=== PATIENT | female | born 1940 | race Caucasian/White ===

== ENCOUNTER → 2017-12-13 | Outpatient (CLI) | payer MEDICARE, BC ==
--- NOTE | 2017-12-17 10:51 | MM ---
Reason for exam: screening (asymptomatic). Last mammogram was performed 4 years and 5 months ago. History: Patient is postmenopausal. Benign left mammotome panel of the left breast, April 07, 2009. Took estrogen for 13 years. Physical Findings: A clinical breast exam by your physician is recommended on an annual basis and results should be correlated with mammographic findings. MG 3D Screening Mammo W/Cad Bilateral CC and MLO view(s) were taken. Prior study comparison: June 30, 2013, bilateral digital screening mammo w/CAD. March 18, 2012, bilateral digital screening mammo w/CAD. The breast tissue is heterogeneously dense. This may lower the sensitivity of mammography. There is a new 3mm mass lower inner quadrant on the left breast at middle depth. No suspicious abnormality on the right breast. ASSESSMENT: Incomplete: need additional imaging evaluation, BI-RAD 0 RECOMMENDATION: Special view mammogram of the left breast. If lesion persists on supplemental views, image directed ultrasound is recommended. [facility] will attempt to contact patient to return for supplemental views and ultrasound if indicated.
== END | disposition home or self-care (01) ==
LOC: RADMAMWWP 13:57
PROVIDERS: ATTEND Family Medicine
DX: Z12.31 Encounter for screening mammogram for malignant neoplasm of breast (principal)
CPT/HCPCS: 77063; 77067

== ENCOUNTER → 2017-12-31 | Outpatient (CLI) | payer MEDICARE, BC ==
--- NOTE | 2018-01-01 07:33 | MM ---
Reason for exam: additional evaluation requested from abnormal screening. Last mammogram was performed 1 month ago. History: Patient is postmenopausal. Benign left mammotome panel of the left breast, April 07, 2009. Took estrogen for 13 years. Physical Findings: Nurse did not find any significant physical abnormalities on exam. MG 3D Work Up W/Cad LT Spot compression CC, spot compression MLO, and ML view(s) were taken of the left breast. Prior study comparison: December 13, 2017, bilateral MG 3d screening mammo w/cad. June 30, 2013, bilateral digital screening mammo w/CAD. The breast tissue is heterogeneously dense. This may lower the sensitivity of mammography. There is no discrete abnormality including area of concern. No significant new findings when compared with previous films. These results were verbally communicated with the patient and result sheet given to the patient on 12/31/17. ASSESSMENT: Negative, BI-RAD 1 RECOMMENDATION: Return to routine screening mammogram schedule for both breasts.
== END | disposition home or self-care (01) ==
LOC: RADMAMWWP 14:57
PROVIDERS: ATTEND Family Medicine
DX: R92.8 Other abnormal and inconclusive findings on diagnostic imaging of breast (principal)
CPT/HCPCS: 77065; G0279; 77061

== ENCOUNTER → 2019-03-03 | Outpatient (CLI) | payer MEDICARE, BC ==
--- NOTE | 2019-03-04 14:58 | MM ---
Reason for exam: screening (asymptomatic). Last mammogram was performed 1 year and 2 months ago. History: Patient is postmenopausal. Benign left mammotome panel of the left breast, April 07, 2009. Took estrogen for 13 years. MG 3D Screening Mammo W/Cad Bilateral CC and MLO view(s) were taken. Prior study comparison: December 31, 2017, left breast MG 3d work up w/cad LT. December 13, 2017, bilateral MG 3d screening mammo w/cad. The breast tissue is heterogeneously dense. This may lower the sensitivity of mammography. There are benign-appearing bilateral breast calcifications. No suspicious abnormality. No significant new finding when compared with prior studies. ASSESSMENT: Benign, BI-RAD 2 RECOMMENDATION: Routine screening mammogram of both breasts in 1 year.
== END | disposition home or self-care (01) ==
LOC: RADMAMWWP 12:58
PROVIDERS: ATTEND Family Medicine
DX: Z12.31 Encounter for screening mammogram for malignant neoplasm of breast (principal)
CPT/HCPCS: 77063; 77067

== ENCOUNTER 2019-09-01 13:54 | Emergency (ER) | payer OTHER, MEDICARE, BC ==
[2019-09-01 14:05] VITALS: RESP 18
[2019-09-01] MEDS ORDERED: PROPARACAINE 0.5% OPHTH DROPS 15 ML BTL BOTH EYES SCH (15:15)
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
--- NOTE | 2019-09-01 16:13 | CT ---
EXAMINATION TYPE: CT orbits wo con DATE OF EXAM: 09/01/2019 COMPARISON: None HISTORY: Pain Unenhanced CT of the facial bones and orbits was performed in the axial and coronal planes. Bone and soft tissue window settings are submitted. No significant soft tissue swelling is appreciated. I do not see evidence for displaced facial bone fracture or depressed facial bone fracture. The globes are intact. The orbits are symmetric. No evidence for foreign body. Paranasal sinuses are well-aerated. IMPRESSION: 1. No evidence for depressed or displaced facial bone fracture.
[2019-09-01 17:38] VITALS: BP 190/75; PULSE 72; TEMP 97.7
== END 2019-09-01 17:38 | disposition home or self-care (01) ==
LOC: EC 13:54
DX: R51 Headache (principal); H53.8 Other visual disturbances; M54.2 Cervicalgia; I25.10 Atherosclerotic heart disease of native coronary artery without angina pectoris; I10 Essential (primary) hypertension; F32.9 Major depressive disorder, single episode, unspecified; Z86.718 Personal history of other venous thrombosis and embolism; Z95.1 Presence of aortocoronary bypass graft; Z96.652 Presence of left artificial knee joint; Z79.01 Long term (current) use of anticoagulants; Z79.899 Other long term (current) drug therapy; V89.2XXA Person injured in unspecified motor-vehicle accident, traffic, initial encounter; Y92.410 Unspecified street and highway as the place of occurrence of the external cause
CPT/HCPCS: 70450; 70480; 72125; 99284

== ENCOUNTER 2020-05-06 13:48 | Emergency (ER) | payer BC, MEDICARE, OTHER ==
[2020-05-06 14:05] VITALS: TEMP 97.9
[2020-05-06] MEDS ORDERED: diazePAM 2 MG TAB PO STA (14:23)
--- NOTE | 2020-05-06 15:03 | CT ---
EXAMINATION TYPE: CT brain priscilla bourne con DATE OF EXAM: 05/06/2020 COMPARISON: 09/01/2019 HISTORY: headache, neck pain, neck weakness CT DLP: 1315.[address] of the brain was performed. The ventricles, basal cisterns and sulci overlying the cerebral convexities demonstrate mild enlargem ent. There is no evidence for intracranial hemorrhage or sulcal effacement. There is decreased attenuatio n about the periventricular white matter and deep white matter of both cerebral hemispheres, compatib le with chronic small vessel ischemia. No mass effects are seen. If symptoms persist consider MRI. Osseous calvarium is intact. IMPRESSION: 1. Age related atrophic and chronic small vessel ischemic change without acute intracranial process seen at this time. CT Cervical Spine: Unenhanced CT of the cervical spine was performed with bone and soft tissue window settings submitted . Coronal and sagittal reconstruction is obtained. There is normal alignment and prevertebral soft tissues. No evidence for acute cervical fracture . Mi ld degenerative disc space narrowing and spondylosis. Biapical scarring. IMPRESSION: 1. No evidence for acute fracture or subluxation of the cervical spine.
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
[2020-05-06 15:45] VITALS: BP 123/68; PULSE 72; RESP 20
== END 2020-05-06 15:56 | disposition home or self-care (01) ==
LOC: EC 13:48
DX: G44.329 Chronic post-traumatic headache, not intractable (principal); M54.2 Cervicalgia; I10 Essential (primary) hypertension; F32.9 Major depressive disorder, single episode, unspecified; Z79.01 Long term (current) use of anticoagulants; Z79.899 Other long term (current) drug therapy; Z96.652 Presence of left artificial knee joint; Z86.718 Personal history of other venous thrombosis and embolism
CPT/HCPCS: 70450; 72125; 99284

== ENCOUNTER 2021-04-03 14:32 | Observation (INO) | payer MEDICARE, BC ==
[2021-04-03] MEDS ORDERED: ASPIRIN 81 MG PO STA (15:09)
[2021-04-03 16:00] LABS: Basophils # (A) 0.1 k/uL (0-0.2); Basophils % (A) 0 %; Eosinophils # (A) 0.1 k/uL (0-0.7); Eosinophils % (A) 1 %; HCT 43.4 % (34.0-46.0); HGB 14.5 gm/dL (11.4-16.0); Lymphocytes # (A) 1.6 k/uL (1.0-4.8); Lymphocytes % (A) 14 %; MCHC 33.4 g/dL (31.0-37.0); MCV 95.7 fL (80.0-100.0); Mean Platelet Volume 8.8; Monocytes # (A) 0.6 k/uL (0-1.0); Monocytes % (A) 5 %; Neutrophils # (A) 8.6 k/uL (1.3-7.7); Neutrophils % (A) 77 %; Platelet Count 199 k/uL (150-450); RBC 4.53 m/uL (3.80-5.40); RDW 14.1 % (11.5-15.5); WBC 11.1 k/uL (3.8-10.6)
[2021-04-03 16:09] LABS: Partial Thromboplastin Time 23.4 sec (22.0-30.0); Prothrombin Time 10.7 sec (9.0-12.0)
[2021-04-03 16:11] LABS: Albumin 4.2 g/dL (3.5-5.0); Calcium 9.4 mg/dL (8.4-10.2); Magnesium 1.9 mg/dL (1.6-2.3); Potassium 4.5 mmol/L (3.5-5.1); Total Bilirubin 0.8 mg/dL (0.2-1.3); Total Protein 6.7 g/dL (6.3-8.2)
--- NOTE | 2021-04-03 17:31 | XR ---
EXAMINATION TYPE: XR chest 2V DATE OF EXAM: 04/03/2021 COMPARISON: NONE HISTORY: Chest pain TECHNIQUE: 2 views FINDINGS: There is no heart failure nor confluent pneumonic infiltrate. Costophrenic angles are clear . Sternal wires. Bony thorax appears intact. Heart size is normal. IMPRESSION: No active cardiopulmonary disease.
[2021-04-03] MEDS ORDERED: NALOXONE 0.4 MG/ML 1 ML VIAL IV PRN ×2 (18:12→18:14)
[2021-04-03] MEDS ORDERED: IBUPROFEN 400 MG TAB PO PRN (18:14)
[2021-04-03] MEDS ORDERED: MORPHINE SULFATE 4 MG/ML SYRINGE IV PRN (18:14)
--- NOTE | 2021-04-03 18:16 | ED ---
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 This began on Saturday, and is currently Saturday. She describes it as a tightness sensation that is worse over her left chest. It is pleuritic in nature. She denies any cough, fevers, chills. Denies any worsening chest pain with exertion. She denies any abdominal pain, nausea, vomiting, urinary complaints. She otherwise has no acute complaints. She is up-to-date on her COVID-19 vaccination. Patient presents over concern for heart due to history of cardiac illness. - Related Data Home Medications Medication Instructions Recorded Confirmed Enalapril [Vasotec] 10 mg PO BID 07/09/14 04/03/21 Metoprolol Tartrate [Lopressor] 25 mg PO BID 07/09/14 04/03/21 PARoxetine [Paxil] 20 mg PO DAILY 04/06/15 04/03/21 Apixaban [Eliquis] 5 mg PO BID 05/06/20 04/03/21 HYDROcodone/APAP 10-325MG [[place] 1 tab PO DAILY PRN 05/06/20 04/03/21 10-325] Multivitamins, Thera [Multivitamin 1 tab PO DAILY@1200 04/03/21 04/03/21 (formulary)] [place]-3 Fatty Acids/Fish Oil [Fish 1 cap PO DAILY@1200 04/03/21 04/03/21 Oil 1,000 mg Softgel] Allergies Allergy/AdvReac Type Severity Reaction Status Date / Time No Known Allergies Allergy Verified 04/03/21 17:58 Review of Systems ROS Statement: Those systems with pertinent positive or pertinent negative responses have been documented in the HPI. Review of Systems: CONST: Denies fever EYES: Denies blurry vision ENT: Denies nasal congestion C/V: Endorses chest pain RESP: Endorses occasional dyspnea secondary chest pain GI: Denies abdominal pain : Denies dysuria SKIN: Denies rash. MSK: Denies joint pain. NEURO: Denies headache ROS Other: All systems not noted in ROS Statement are negative. Past Medical History Past Medical History: Coronary Artery Disease (CAD), Deep Vein Thrombosis (DVT), GERD/Reflux, GI Bleed, Hyperlipidemia, Hypertension Additional Past Medical History / Comment(s): DVT on 07/07; May Thurner syndrome History of Any Multi-Drug Resistant Organisms: None Reported Past Surgical History: Back Surgery, Cholecystectomy, Coronary Bypass/CABG, Joint Replacement, Orthopedic Surgery Additional Past Surgical History / Comment(s): L knee replacement, Past Anesthesia/Blood Transfusion Reactions: No Reported Reaction Past Psychological History: Depression Smoking Status: Never smoker Past Alcohol Use History: Rare Past Drug Use History: None Reported - Past Family History Father Family Medical History: Cancer Additional Family Medical History / Comment(s): Leukemia Mother Family Medical History: Myocardial Infarction ([place]) General Exam - General Exam Comments Initial Comments: General: Appears in no acute distress. HEAD: Normal with no signs of head trauma. EYES: PERRLA, EOMI, conjunctiva normal, no discharge. ENT: Hearing grossly intact, normal oropharynx. RESPIRATORY: Clear breath sounds bilaterally. No wheezes, rales, or rhonchi. C/V: Regular rate and rhythm. S1 and S2 auscultated, no edema, peripheral pulses 2+ and intact throughout. Chest pain is nonreproducible on palpation. ABD: Abd is soft, nontender, nondistended EXT: Normal range of motion, no obvious deformity SKIN: No rashes or lesions observed on exposed skin. NEURO: Alert and oriented 4. No focal deficits. 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 Therefore we'll obtain a cardiac workup including troponin, EKG, chest x-ray. Patient does not PERC out. Wells score for pulmonary embolism is low, particularly with the patient taking elliquis, however due to her pleuritic nonspecific chest pain, we will obtain a screening d-dimer for pulmonary embolism. She will be given an aspirin. She declines any further analgesia at this time. Patient was in agreement with this plan. She will be connected to continuous cardiac monitoring while she is here in the department. Patient's EKG shows no signs of acute ischemia. Chest x-ray reveals no acute cardiopulmonary process. Laboratory studies are remarkable for a negative troponin. D-dimer is unremarkable. Patient's COVID-19 negative. Patient is a very mild leukocytosis of 11.1. On reevaluation, patient still complaining of extremely mild chest pain. She states it is improved from presentation. Due to the patient's heart score being moderate at 4, 2 points for age and 2 points for risk factors, I did recommend that we admit her to the hospital for troponin monitoring. Cardiology can evaluate her in the morning. She was in agreement this plan. Echo will be ordered by myself. I did consult cardiology to evaluate the patient in the morning. I spoke with the admitting team under Dr. austin was in agreement this plan. Patient was therefore admitted in stable condition. She is admitted to a telemetry bed. - Lab Data Result diagrams: 04/03/21 15:53 04/03/21 15:53 Lab Results 04/03/21 04/03/21 04/03/21 Range/Units 15:53 15:53 15:53 WBC 11.1 H (3.8-10.6) k/uL RBC 4.53 (3.80-5.40) m/uL Hgb 14.5 (11.4-16.0) gm/dL Hct 43.4 (34.0-46.0) % MCV 95.7 (80.0-100.0) fL MCH 32.0 (25.0-35.0) pg MCHC 33.4 (31.0-37.0) g/dL RDW 14.1 (11.5-15.5) % Plt Count 199 (150-450) k/uL MPV 8.8 Neutrophils % 77 % Lymphocytes % 14 % Monocytes % 5 % Eosinophils % 1 % Basophils % 0 % Neutrophils # 8.6 H (1.3-7.7) k/uL Lymphocytes # 1.6 (1.0-4.8) k/uL Monocytes # 0.6 (0-1.0) k/uL Eosinophils # 0.1 (0-0.7) k/uL Basophils # 0.1 (0-0.2) k/uL PT 10.7 (9.0-12.0) sec INR 1.0 (<1.2) APTT 23.4 (22.0-30.0) sec D-Dimer (<0.60) mg/L FEU Sodium 138 (137-145) mmol/L Potassium 4.5 (3.5-5.1) mmol/L Chloride 104 (98-107) mmol/L Carbon Dioxide 26 (22-30) mmol/L Anion Gap 8 mmol/L BUN 20 H (7-17) mg/dL Creatinine 1.06 H (0.52-1.04) mg/dL Est GFR (CKD-EPI)AfAm 57 (>60 ml/min/1.73 sqM) Est GFR (CKD-EPI)NonAf 49 (>60 ml/min/1.73 sqM) Glucose 108 H (74-99) mg/dL Calcium 9.4 (8.4-10.2) mg/dL Magnesium 1.9 (1.6-2.3) mg/dL Total Bilirubin 0.8 (0.2-1.3) mg/dL AST 36 (14-36) U/L ALT 33 (4-34) U/L Alkaline Phosphatase 64 (38-126) U/L Troponin I (0.000-0.034) ng/mL Total Protein 6.7 (6.3-8.2) g/dL Albumin 4.2 (3.5-5.0) g/dL Coronavirus (PCR) (Not Detectd) 04/03/21 04/03/21 04/03/21 Range/Units 15:53 16:27 16:27 WBC (3.8-10.6) k/uL RBC (3.80-5.40) m/uL Hgb (11.4-16.0) gm/dL Hct (34.0-46.0) % MCV (80.0-100.0) fL MCH (25.0-35.0) pg MCHC (31.0-37.0) g/dL RDW (11.5-15.5) % Plt Count (150-450) k/uL MPV Neutrophils % % Lymphocytes % % Monocytes % % Eosinophils % % Basophils % % Neutrophils # (1.3-7.7) k/uL Lymphocytes # (1.0-4.8) k/uL Monocytes # (0-1.0) k/uL Eosinophils # (0-0.7) k/uL Basophils # (0-0.2) k/uL PT (9.0-12.0) sec INR (<1.2) APTT (22.0-30.0) sec D-Dimer 0.39 (<0.60) mg/L FEU Sodium (137-145) mmol/L Potassium (3.5-5.1) mmol/L Chloride (98-107) mmol/L Carbon Dioxide (22-30) mmol/L Anion Gap mmol/L BUN (7-17) mg/dL Creatinine (0.52-1.04) mg/dL Est GFR (CKD-EPI)AfAm (>60 ml/min/1.73 sqM) Est GFR (CKD-EPI)NonAf (>60 ml/min/1.73 sqM) Glucose (74-99) mg/dL Calcium (8.4-10.2) mg/dL Magnesium (1.6-2.3) mg/dL Total Bilirubin (0.2-1.3) mg/dL AST (14-36) U/L ALT (4-34) U/L Alkaline Phosphatase (38-126) U/L Troponin I <0.012 (0.000-0.034) ng/mL Total Protein (6.3-8.2) g/dL Albumin (3.5-5.0) g/dL Coronavirus (PCR) Not Detected (Not Detectd) - EKG Data -: EKG Interpreted by Me EKG Comments: 12-lead Electrocardiogram Interpretation Note EKG was reviewed and interpreted by myself. 12-lead ECG performed at 1505 is interpreted by me as revealing normal sinus rhythm with occasional PVC at a rate of 71 beats per minute. [place] is normal. DC interval is 166 ms, QRS duration is 82 ms, QTc is 412 ms.. There were no ST or T wave abnormalities to suggest myocardial ischemia or injury. R wave progression across the precordium was satisfactory. By my interpretation this EKG is non-diagnostic for acute ischemia. 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
[2021-04-03] MEDS: METOPROLOL TARTRATE 25 MG TAB PO SCH (22:32)
[2021-04-03] MEDS: APIXABAN 5 MG TAB PO SCH (22:32)
[2021-04-04 07:42] LABS: Glucose,Whole Blood 95 mg/dL (75-99)
[2021-04-04] MEDS: APIXABAN 5 MG TAB PO SCH (07:51)
[2021-04-04] MEDS: METOPROLOL TARTRATE 25 MG TAB PO SCH (07:57)
[2021-04-04 08:41] VITALS: BP 172/80; RESP 18; TEMP 98.1
[2021-04-04] MEDS ORDERED: PARoxetine 20 MG TAB PO SCH (09:00)
[2021-04-04] MEDS ORDERED: lisinopriL 20 MG TAB PO SCH (09:00)
[2021-04-04 10:24] VITALS: PULSE 68
--- NOTE | 2021-04-04 10:33 | P.CRDCN ---
History of Present Illness History of present illness: HISTORY OF PRESENTING ILLNESS This is a pleasant 80-year-old female past medical history significant for coronary artery disease status post bypass grafting with PRASAD-LAD 2004, hyp ertension, May Thurner syndrome s/p femoral vein stenting. history of DVT and obstructive sleep apnea. She follows in the office with Dr. Hopkins. We have been asked to see in consultation for chest pain. She states her symptoms started on Saturday where she felt the discomfort across her entire chest on both sides. Discomfort is described as a tight sensation that is exacerbated by deep inspiration or coughing. She also has been coughing through the weekend and she also describes multiple episodes of fever and chills at home. The chest pain continues to move across her chest on both sides. DIAGNOSTICS EKG reveals sinus mechanism with PVCs and nonspecific T-wave abnormalities. Telemetry tracings indicate sinus mechanism with frequent PVCs. Chest xray negative for an acute cardiopulmonary process. Laboratory reviewed, WBC 11.1, hemoglobin 14.5, platelets 199, d-dimer 0.39, sodium 138, potassium 4.5, creatinine 1.06, magnesium 1.9, cardiac enzymes negative 3. Current cardiac medications include Eliquis 5 mg twice a day, enalapril 10 mg twice a day and Lopressor 25 mg twice a day. Most recent echocardiogram obtained in the office 02/16/2021 reveals preserved LV systolic function with ejection fraction 55%, grade 2 diastolic dysfunction, mild to moderate MR and mild TR. Most recent stress test performed in the office 02/16/2021 was negative for stress-induced reversible cardiac ischemia. REVIEW OF SYSTEMS At the time of my exam: CONSTITUTIONAL: Denies fever or chills. CARDIOVASCULAR: Denies chest pain, shortness of breath, orthopnea, PND or palpitations. RESPIRATORY: Denies cough. GASTROINTESTINAL: Denies abdominal pain, diarrhea, constipation, nausea or vomiting. MUSCULOSKELETAL: Denies myalgias. NEUROLOGIC: Denies numbness, tingling, headache or weakness. ENDOCRINE: Denies fatigue, weight change, polydipsia or polyurina. GENITOURINARY: Denies burning, hematuria or urgency with micturation. HEMATOLOGIC: Denies history of anemia or bleeding. PHYSICAL EXAMINATION Blood pressure 172/80 heart rate 63 afebrile and maintaining oxygen saturation on room air. CONSTITUTIONAL: No apparent distress. HEENT: Head is normocephalic. Pupils are equal, round. Sclerae anicteric. Mucous membranes of the mouth are moist. No JVD. No carotid bruit. CHEST EXAMINATION: Lungs are clear to auscultation. No chest wall tenderness is noted on palpation or with deep breathing. HEART EXAMINATION: Regular rate and rhythm. S1, S2 heard. No murmurs, gallops or rub. ABDOMEN: Soft, nontender. EXTREMITIES: 2+ peripheral pulses, no lower extremity edema and no calf tenderness. NEUROLOGIC EXAMINATION: Patient is awake, alert and oriented x3. ASSESSMENT Chest pain, pleuritic Leukocytosis Coronary artery disease s/p bypass grafting Hypertension May Thurner syndrome PLAN An acute coronary event has been ruled out. Pain is atypical for angina pleuritic in nature. Recent stress testing in the office reviewed, no evidence of reversibility. No further cardiac workup required at this time. Ongoing medical management and evaluation of possible underlying pneumonia. We will follow along as needed, follow up in the office with Dr. Hopkins in 2 weeks. Acute kindly for this consultation. Nurse Practitioner note has been reviewed, I agree with a documented findings and plan of care. Patient was seen and examined. Past Medical History Past Medical History: Coronary Artery Disease (CAD), Deep Vein Thrombosis (DVT), GERD/Reflux, GI Bleed, Hyperlipidemia, Hypertension Additional Past Medical History / Comment(s): DVT on 07/07; May Thurner syndrome History of Any Multi-Drug Resistant Organisms: None Reported Past Surgical History: Back Surgery, Cholecystectomy, Coronary Bypass/CABG, Joint Replacement, Orthopedic Surgery Additional Past Surgical History / Comment(s): L knee replacement followed by sepsis. CABG X2 in 2001. Past Anesthesia/Blood Transfusion Reactions: No Reported Reaction Past Psychological History: Depression Smoking Status: Former smoker Past Alcohol Use History: Rare Additional Past Alcohol Use History / Comment(s): Pt states she smoked 1 pack that would last her 3-5 days. She states she drinks maybe one drink every 2 months. Past Drug Use History: None Reported - Past Family History Father Family Medical History: Cancer Additional Family Medical History / Comment(s): Leukemia Mother Family Medical History: Myocardial Infarction ([place]) Additional Family Medical History / Comment(s): Alcoholism Medications and Allergies Home Medications Medication Instructions Recorded Confirmed Type Enalapril [Vasotec] 10 mg PO BID 07/09/14 04/03/21 History Metoprolol Tartrate [Lopressor] 25 mg PO BID 07/09/14 04/03/21 History PARoxetine [Paxil] 20 mg PO DAILY 04/06/15 04/03/21 History Apixaban [Eliquis] 5 mg PO BID 05/06/20 04/03/21 History HYDROcodone/APAP 10-325MG [[place] 1 tab PO DAILY PRN 05/06/20 04/03/21 History 10-325] Multivitamins, Thera [Multivitamin 1 tab PO DAILY@1200 04/03/21 04/03/21 History (formulary)] [place]-3 Fatty Acids/Fish Oil [Fish 1 cap PO DAILY@1200 04/03/21 04/03/21 History Oil 1,000 mg Softgel] Azithromycin [Zithromax Z-pack (6 0 mg PO DIRECTED 5 Days #6 tab 04/04/21 Rx tabs)] guaiFENesin [Mucinex] 1,200 mg PO BID #20 tab 04/04/21 Rx Allergies Allergy/AdvReac Type Severity Reaction Status Date / Time No Known Allergies Allergy Verified 04/03/21 17:58 Physical Exam Vitals: Vital Signs Temp Pulse Pulse Pulse Resp BP BP 04/04/21 07:55 58 L 14 161/83 04/04/21 02:00 98.4 F 56 L 16 129/68 04/03/21 23:21 68 18 04/03/21 22:50 98.4 F 68 18 125/64 04/03/21 17:46 68 68 18 148/56 04/03/21 17:45 68 18 148/56 04/03/21 14:50 99.0 F 63 18 130/80 Pulse Ox 04/04/21 07:55 96 04/04/21 02:00 94 L 04/03/21 23:21 04/03/21 22:50 93 L 04/03/21 17:46 95 04/03/21 17:45 95 04/03/21 14:50 94 L Intake and Output 04/03/21 04/04/21 04/04/21 22:59 06:59 14:59 Other: Voiding Method Toilet # Voids 1 1 Weight 95.708 kg Results 04/03/21 15:53 04/03/21 15:53 Cardiac Enzymes 04/03/21 04/03/21 04/03/21 Range/Units 15:53 15:53 20:59 AST 36 (14-36) U/L Troponin I <0.012 <0.012 (0.000-0.034) ng/mL 04/04/21 Range/Units 00:46 AST (14-36) U/L Troponin I <0.012 (0.000-0.034) ng/mL Coagulation 04/03/21 Range/Units 15:53 PT 10.7 (9.0-12.0) sec APTT 23.4 (22.0-30.0) sec CBC 04/03/21 Range/Units 15:53 WBC 11.1 H (3.8-10.6) k/uL RBC 4.53 (3.80-5.40) m/uL Hgb 14.5 (11.4-16.0) gm/dL Hct 43.4 (34.0-46.0) % Plt Count 199 (150-450) k/uL Comprehensive Metabolic Panel 04/03/21 Range/Units 15:53 Sodium 138 (137-145) mmol/L Potassium 4.5 (3.5-5.1) mmol/L Chloride 104 (98-107) mmol/L Carbon Dioxide 26 (22-30) mmol/L BUN 20 H (7-17) mg/dL Creatinine 1.06 H (0.52-1.04) mg/dL Glucose 108 H (74-99) mg/dL Calcium 9.4 (8.4-10.2) mg/dL AST 36 (14-36) U/L ALT 33 (4-34) U/L Alkaline Phosphatase 64 (38-126) U/L Total Protein 6.7 (6.3-8.2) g/dL Albumin 4.2 (3.5-5.0) g/dL Current Medications Generic Name Dose Route Start Last Admin Trade Name Freq PRN Reason Stop Dose Admin Apixaban 5 mg 04/03/21 21:00 04/04/21 07:51 Apixaban 5 Mg Tab PO 5 mg BID RYLEE Administration Protocol Ibuprofen 400 mg 04/03/21 18:14 04/04/21 07:50 Ibuprofen 400 Mg Tab PO 400 mg Q6HR PRN Administration Mild Pain or Fever > 100.5 Lisinopril 40 mg 04/04/21 09:00 04/04/21 07:57 Lisinopril 20 Mg Tab PO 40 mg DAILY RYLEE Administration Metoprolol Tartrate 25 mg 04/03/21 21:00 04/04/21 07:57 Metoprolol Tartrate 25 Mg Tab PO 25 mg BID RYLEE Administration Morphine Sulfate 4 mg 04/03/21 18:14 Morphine Sulfate 4 Mg/Ml Syringe IV Q4HR PRN Severe Pain Naloxone HCl 0.2 mg 04/03/21 18:12 Naloxone 0.4 Mg/Ml 1 Ml Vial IV Q2M PRN Opioid Reversal Naloxone HCl 0.2 mg 04/03/21 18:14 Naloxone 0.4 Mg/Ml 1 Ml Vial IV Q2M PRN Opioid Reversal Paroxetine HCl 20 mg 04/04/21 09:00 Paroxetine 20 Mg Tab PO DAILY RYLEE Intake and Output 04/03/21 04/04/21 04/04/21 22:59 06:59 14:59 Other: Voiding Method Toilet # Voids 1 1 Weight 95.708 kg 04/03/21 15:53 04/03/21 15:53
--- NOTE | 2021-04-04 15:53 | P.HPIM ---
History of Present Illness H&P Date: 04/04/21 Chief Complaint: Chest pain HISTORY AND PHYSICAL AND DISCHARGE SUMMARY: HISTORY OF PRESENT ILLNESS This is an 80-year-old female patient of Dr. Marcello Kaiser with past medical history of coronary artery disease status post CABG with PRASAD to LAD in 2003, hypertension, May-Thurner syndrome status post femoral vein stenting, hypertension, hyperlipidemia, DVT. Patient states that she developed chest pain that felt like pneumonia. She states she had some fever and chills. She does have a feed blender and follows with Dr. REBEKAH Hopkins every 6 months and had a stress test done 2 weeks ago and echocardiogram every 6 months. Patient came into [facility] emergency center for evaluation. EKG was a sinus rhythm with no acute ST changes. Chest x-ray was no acute cardiopulmonary process. WBC 11.1, hemoglobin 14.5, platelet count 199. D-dimer 0.39. Sodium 138, potassium 4.5, creatinine 1.06, magnesium 1.9, troponin negative on 3 draws. Patient was placed on the observation unit and seen in consultation by cardiology. Acute coronary syndrome once ruled out and patient was cleared for discharge with planned follow-up in the office in 2 weeks. REVIEW OF SYSTEMS Constitutional: No fever, no chills, no night sweats. No weight change. No weakness, fatigue or lethargy. No daytime sleepiness. EENT: No headache. No blurred vision or double vision, no loss of vision. No loss of Hearing, no ringing in the ears, no dizziness. No nasal drainage or congestion. No epistaxis. No sore throat. Lungs: No shortness of breath, cough, no sputum production. No wheezing. Cardiovascular: No chest pain resolved, no lower extremity edema. No palpitations. No paroxysmal nocturnal dyspnea. No orthopnea. No lightheadedness or dizziness. No syncopal episodes. Abdominal: No abdominal pain. No nausea, vomiting. No diarrhea. No constipation. No bloody or tarry stools.. No loss of appetite. Genitourinary: No dysuria, increased frequency, urgency. No urinary retention. Musculoskeletal: No myalgias. No muscle weakness, no gait dysfunction, no frequent falls. No back pain. No neck pain. Integumentary: No wounds, no lesions. No rash or pruritus. No unusual brui sing. No change in hair or nails. Neurologic: No aphasia. No facial droop. No change in mentation. No head injury. No headache. No paralysis. No paresthesia. Psychiatric: No depression. No anxiety. No mood swings. Endocrine: No abnormal blood sugars. No weight change. No excessive sweating or thirst. No cold intolerance. SOCIAL HISTORY Patient was a smoker for around 10 years of 1-2 cigarettes per day and quit 40- 50 years ago. She drinks wine occasionally. She is retired, and lives at home with her and she is a caregiver for her . FAMILY HISTORY Mother at age 67 from alcohol abuse with history of coronary artery disease. Father at age 33 from leukemia. Patient has 2 sisters 84 and 86 years old and still living with no major medical problems. Patient does not have any brothers. Patient has 4 children with no major medical problems.]. PHYSICAL EXAMINATION Gen: This is an 80-year-old female. Patient is resting in bed and appears to be comfortable and in no acute distress. HEENT: Head is atraumatic, normocephalic. Pupils equal, round. Sclerae is anic teric. NECK: Supple. No JVD. No lymphadenopathy. No thyromegaly. LUNGS: Clear to auscultation. No wheezes or rhonchi. No intercostal retractions. HEART: Regular rate and rhythm. No murmur. ABDOMEN: Soft. Bowel sounds are present. No masses. No tenderness. EXTREMITIES: No pedal edema. No calf tenderness. NEUROLOGICAL: Patient is awake, alert and oriented x3. Cranial nerves 2 through 12 are grossly intact. ASSESSMENT AND PLAN 1. Chest pain, acute coronary syndrome ruled out. No sign of pneumonia. Chest x-ray was reviewed with the patient. 2. History of coronary artery disease status post CABG, stable. 3. Hypertension. 4. Hyperlipidemia. 5. History of DVT. 6. History of May-Thurner syndrome status post femoral vein stenting. 7. Bronchitis. Patient placed as observation status. DISCHARGE PLAN Home. DISCHARGE MEDICATIONS Enalapril [Vasotec] 10 mg PO BID 07/09/14 [History] Metoprolol Tartrate [Lopressor] 25 mg PO BID 07/09/14 [History] PARoxetine [Paxil] 20 mg PO DAILY 04/06/15 [History] Apixaban [Eliquis] 5 mg PO BID 05/06/20 [History] HYDROcodone/APAP 10-325MG [[place] 10-325] 1 tab PO DAILY PRN 05/06/20 [History] Multivitamins, Thera [Multivitamin (formulary)] 1 tab PO DAILY@1200 04/03/21 [History] [place]-3 Fatty Acids/Fish Oil [Fish Oil 1,000 mg Softgel] 1 cap PO DAILY@1200 04/03/21 [History] Azithromycin [Zithromax Z-pack (6 tabs)] 0 mg PO DIRECTED 5 Days #6 tab 04/04/21 [Rx] guaiFENesin [Mucinex] 1,200 mg PO BID #20 tab 04/04/21 [Rx] Impression and plan of care have been directed as dictated by the signing physician. Tootie Mccain nurse practitioner acting as scribe for signing physician. Past Medical History Past Medical History: Coronary Artery Disease (CAD), Deep Vein Thrombosis (DVT), GERD/Reflux, GI Bleed, Hyperlipidemia, Hypertension Additional Past Medical History / Comment(s): DVT on 07/07; May Thurner syndrome History of Any Multi-Drug Resistant Organisms: None Reported Past Surgical History: Back Surgery, Cholecystectomy, Coronary Bypass/CABG, Joint Replacement, Orthopedic Surgery Additional Past Surgical History / Comment(s): L knee replacement followed by sepsis. CABG X2 in 2001. Past Anesthesia/Blood Transfusion Reactions: No Reported Reaction Past Psychological History: Depression Smoking Status: Former smoker Past Alcohol Use History: Rare Additional Past Alcohol Use History / Comment(s): Pt states she smoked 1 pack that would last her 3-5 days. She states she drinks maybe one drink every 2 months. Past Drug Use History: None Reported - Past Family History Father Family Medical History: Cancer Additional Family Medical History / Comment(s): Leukemia Mother Family Medical History: Myocardial Infarction ([place]) Additional Family Medical History / Comment(s): Alcoholism Medications and Allergies Home Medications Medication Instructions Recorded Confirmed Type Enalapril [Vasotec] 10 mg PO BID 07/09/14 04/03/21 History Metoprolol Tartrate [Lopressor] 25 mg PO BID 07/09/14 04/03/21 History PARoxetine [Paxil] 20 mg PO DAILY 04/06/15 04/03/21 History Apixaban [Eliquis] 5 mg PO BID 05/06/20 04/03/21 History HYDROcodone/APAP 10-325MG [[place] 1 tab PO DAILY PRN 05/06/20 04/03/21 History 10-325] Multivitamins, Thera [Multivitamin 1 tab PO DAILY@1200 04/03/21 04/03/21 History (formulary)] [place]-3 Fatty Acids/Fish Oil [Fish 1 cap PO DAILY@1200 04/03/21 04/03/21 History Oil 1,000 mg Softgel] Azithromycin [Zithromax Z-pack (6 0 mg PO DIRECTED 5 Days #6 tab 04/04/21 Rx tabs)] guaiFENesin [Mucinex] 1,200 mg PO BID #20 tab 04/04/21 Rx Allergies Allergy/AdvReac Type Severity Reaction Status Date / Time No Known Allergies Allergy Verified 04/03/21 17:58 Physical Exam Vitals: Vital Signs Temp Pulse Pulse Pulse Resp BP BP 04/04/21 02:00 98.4 F 56 L 16 129/68 04/03/21 23:21 68 18 04/03/21 22:50 98.4 F 68 18 125/64 04/03/21 17:46 68 68 18 148/56 04/03/21 17:45 68 18 148/56 04/03/21 14:50 99.0 F 63 18 130/80 Pulse Ox 04/04/21 02:00 94 L 04/03/21 23:21 04/03/21 22:50 93 L 04/03/21 17:46 95 04/03/21 17:45 95 04/03/21 14:50 94 L Intake and Output 04/03/21 04/04/21 04/04/21 22:59 06:59 14:59 Other: Voiding Method Toilet # Voids 1 1 Weight 95.708 kg Results CBC & Chem 7: 04/03/21 15:53 04/03/21 15:53 Labs: Abnormal Lab Results - Last 24 Hours (Table) 04/03/21 04/03/21 Range/Units 15:53 15:53 WBC 11.1 H (3.8-10.6) k/uL Neutrophils # 8.6 H (1.3-7.7) k/uL BUN 20 H (7-17) mg/dL Creatinine 1.06 H (0.52-1.04) mg/dL Glucose 108 H (74-99) mg/dL Thrombosis Risk Factor Assmnt - Choose All That Apply Each Factor Represents 1 point: Obesity (BMI >25) Each Risk Factor Represents 3 Points: Age 75 years or older, History of DVT/PE Thrombosis Risk Factor Assessment Total Risk Factor Score: 7 Thrombosis Risk Factor Assessment Level: High Risk
== END 2021-04-04 10:50 | disposition home or self-care (01) ==
LOC: EC 14:32 → 6NMEDSUR 18:12
PROVIDERS: ADMIT Internal Medicine Geriatric Medicine; ATTEND Internal Medicine Geriatric Medicine
DX: R07.9 Chest pain, unspecified (principal); I25.10 Atherosclerotic heart disease of native coronary artery without angina pectoris; J40 Bronchitis, not specified as acute or chronic; Z20.822 Contact with and (suspected) exposure to COVID-19; I10 Essential (primary) hypertension; E78.5 Hyperlipidemia, unspecified; F32.9 Major depressive disorder, single episode, unspecified; I49.3 Ventricular premature depolarization; Q96.9 Turner's syndrome, unspecified; Z79.01 Long term (current) use of anticoagulants; Z79.899 Other long term (current) drug therapy; Z80.6 Family history of leukemia; Z82.49 Family history of ischemic heart disease and other diseases of the circulatory system; Z86.718 Personal history of other venous thrombosis and embolism; Z87.891 Personal history of nicotine dependence; Z95.1 Presence of aortocoronary bypass graft; Z95.5 Presence of coronary angioplasty implant and graft; Z96.652 Presence of left artificial knee joint
CPT/HCPCS: 99285; 36415; 93005; 85379; 80053; 83735; 84484 ×2; 85025; 85610; 85730; 87635; 71046; G0378 ×2

== ENCOUNTER 2021-05-01 15:30 | Inpatient (IN) | payer MEDICARE, BC ==
[2021-05-01] MEDS ORDERED: PANTOPRAZOLE 40 MG/10 ML VIAL IVP STA (15:52)
--- NOTE | 2021-05-01 16:11 | ED ---
General Adult HPI - General Chief complaint: GI Bleed Stated complaint: Blood in stool Time Seen by Provider: 05/01/21 15:51 Source: patient, RN notes reviewed, old records reviewed Mode of arrival: wheelchair Limitations: no limitations - History of Present Illness Initial comments: 81-year-old female presenting for evaluation of rectal bleeding, and melanotic stool. Patient states that this morning she had a bowel movement and then noted some dark blood. This didn't progress to black stool. She has no previous history of upper GI bleed. She states she had 3 alcoholic beverages last night which is not typical for her. She denies central chest pain. Denies significant dyspnea. She did call her primary care physician who recommended she present to the emergency department. She is currently on Eliquis, with history of DVT. - Related Data Home Medications Medication Instructions Recorded Confirmed Enalapril [Vasotec] 10 mg PO BID 07/09/14 05/01/21 Metoprolol Tartrate [Lopressor] 25 mg PO BID 07/09/14 05/01/21 PARoxetine [Paxil] 20 mg PO DAILY 04/06/15 05/01/21 Apixaban [Eliquis] 5 mg PO BID 05/06/20 05/01/21 Multivitamins, Thera [Multivitamin 1 tab PO DAILY 04/03/21 05/01/21 (formulary)] [place]-3 Fatty Acids/Fish Oil [Fish 1 cap PO DAILY 04/03/21 05/01/21 Oil 1,000 mg Softgel] Aspirin EC [Ecotrin] 325 mg PO DAILY 05/01/21 05/01/21 Potassium Gluconate [Potassium 99 mg PO DAILY 05/01/21 05/01/21 Gluconate ER] Allergies Allergy/AdvReac Type Severity Reaction Status Date / Time No Known Allergies Allergy Verified 05/01/21 15:47 Review of Systems ROS Statement: Those systems with pertinent positive or pertinent negative responses have been documented in the HPI. ROS Other: All systems not noted in ROS Statement are negative. Past Medical History Past Medical History: Coronary Artery Disease (CAD), Deep Vein Thrombosis (DVT), GERD/Reflux, GI Bleed, Hyperlipidemia, Hypertension Additional Past Medical History / Comment(s): DVT on 07/07; May Thurner syndrome History of Any Multi-Drug Resistant Organisms: None Reported Past Surgical History: Back Surgery, Cholecystectomy, Coronary Bypass/CABG, Joint Replacement, Orthopedic Surgery Additional Past Surgical History / Comment(s): L knee replacement followed by sepsis. CABG X2 in 2001. Past Anesthesia/Blood Transfusion Reactions: No Reported Reaction Past Psychological History: Depression Smoking Status: Former smoker Past Alcohol Use History: Rare Past Drug Use History: None Reported - Past Family History Father Family Medical History: Cancer Additional Family Medical History / Comment(s): Leukemia Mother Family Medical History: Myocardial Infarction ([place]) Additional Family Medical History / Comment(s): Alcoholism General Exam Limitations: no limitations General appearance: alert, in no apparent distress Head exam: Present: atraumatic, normocephalic Eye exam: Present: normal appearance, PERRL ENT exam: Present: normal exam Neck exam: Present: normal inspection. Absent: tenderness, meningismus Respiratory exam: Present: normal lung sounds bilaterally. Absent: respiratory distress, wheezes Cardiovascular Exam: Present: regular rate, normal rhythm GI/Abdominal exam: Present: soft. Absent: distended, tenderness, guarding, rebound Rectal exam: Present: black stool Extremities exam: Present: normal inspection Neurological exam: Present: alert, oriented X3, CN II-XII intact. Absent: motor sensory deficit Psychiatric exam: Present: normal affect, normal mood Skin exam: Present: warm, dry, pallor Course Vital Signs 05/01/21 15:44 Temperature 98 F Pulse Rate 78 Respiratory 18 Rate Blood Pressure 80/60 O2 Sat by Pulse 94 L Oximetry EKG Findings - EKG Comments: EKG Findings:: EKG: Sinus rhythm rate of 74, WI interval 164, QRS duration 80, QTC 441, T-wave inversion in precordial leads with ST segment depression. Medical Decision Making - Medical Decision Making 81-year-old female presenting with black stool, mild abdominal cramping. Patient is on Eliquis, which she did not take this morning. She has a hemoglobin of 12.2 remainder of her laboratory testing reveals mild acute kidney injury, her stool is occult positive. Patient started on Protonix in the emergency department. I did discuss case with Dr. Thomas who will see this patient in consultation with suspected upper GI bleed. Patient is hemodynamically stable. We will continue to hold her anticoagulation, transient hemoglobin and continue proton pump inhibitor. Case discussed with the admitting physician. - Lab Data Result diagrams: 05/01/21 16:03 05/01/21 16:03 Lab Results 05/01/21 05/01/21 05/01/21 Range/Units 16:03 16:03 16:03 WBC 10.6 (3.8-10.6) k/uL RBC 3.93 (3.80-5.40) m/uL Hgb 12.2 (11.4-16.0) gm/dL Hct 36.9 (34.0-46.0) % MCV 94.0 (80.0-100.0) fL MCH 31.0 (25.0-35.0) pg MCHC 32.9 (31.0-37.0) g/dL RDW 13.3 (11.5-15.5) % Plt Count 215 (150-450) k/uL MPV 8.9 Neutrophils % 76 % Lymphocytes % 17 % Monocytes % 4 % Eosinophils % 1 % Basophils % 1 % Neutrophils # 8.1 H (1.3-7.7) k/uL Lymphocytes # 1.8 (1.0-4.8) k/uL Monocytes # 0.4 (0-1.0) k/uL Eosinophils # 0.1 (0-0.7) k/uL Basophils # 0.1 (0-0.2) k/uL PT 11.3 (9.0-12.0) sec INR 1.1 (<1.2) APTT 22.0 (22.0-30.0) sec Sodium (137-145) mmol/L Potassium (3.5-5.1) mmol/L Chloride (98-107) mmol/L Carbon Dioxide (22-30) mmol/L Anion Gap mmol/L BUN (7-17) mg/dL Creatinine (0.52-1.04) mg/dL Est GFR (CKD-EPI)AfAm (>60 ml/min/1.73 sqM) Est GFR (CKD-EPI)NonAf (>60 ml/min/1.73 sqM) Glucose (74-99) mg/dL Plasma Lactic Acid [place] (0.7-2.0) mmol/L Calcium (8.4-10.2) mg/dL Magnesium (1.6-2.3) mg/dL Total Bilirubin (0.2-1.3) mg/dL AST (14-36) U/L ALT (4-34) U/L Alkaline Phosphatase (38-126) U/L Total Protein (6.3-8.2) g/dL Albumin (3.5-5.0) g/dL Stool Occult Blood Positive H (Negative) Blood Type Blood Type Recheck Bld Type Recheck Status Antibody Screen Spec Expiration Date 05/01/21 05/01/21 05/01/21 Range/Units 16:03 16:03 16:03 WBC (3.8-10.6) k/uL RBC (3.80-5.40) m/uL Hgb (11.4-16.0) gm/dL Hct (34.0-46.0) % MCV (80.0-100.0) fL MCH (25.0-35.0) pg MCHC (31.0-37.0) g/dL RDW (11.5-15.5) % Plt Count (150-450) k/uL MPV Neutrophils % % Lymphocytes % % Monocytes % % Eosinophils % % Basophils % % Neutrophils # (1.3-7.7) k/uL Lymphocytes # (1.0-4.8) k/uL Monocytes # (0-1.0) k/uL Eosinophils # (0-0.7) k/uL Basophils # (0-0.2) k/uL PT (9.0-12.0) sec INR (<1.2) APTT (22.0-30.0) sec Sodium 141 (137-145) mmol/L Potassium 4.4 (3.5-5.1) mmol/L Chloride 111 H (98-107) mmol/L Carbon Dioxide 23 (22-30) mmol/L Anion Gap 7 mmol/L BUN 51 H (7-17) mg/dL Creatinine 1.11 H (0.52-1.04) mg/dL Est GFR (CKD-EPI)AfAm 53 (>60 ml/min/1.73 sqM) Est GFR (CKD-EPI)NonAf 46 (>60 ml/min/1.73 sqM) Glucose 126 H (74-99) mg/dL Plasma Lactic Acid [place] 1.6 (0.7-2.0) mmol/L Calcium 9.0 (8.4-10.2) mg/dL Magnesium 1.8 (1.6-2.3) mg/dL Total Bilirubin 0.6 (0.2-1.3) mg/dL AST 25 (14-36) U/L ALT 18 (4-34) U/L Alkaline Phosphatase 51 (38-126) U/L Total Protein 6.0 L (6.3-8.2) g/dL Albumin 3.6 (3.5-5.0) g/dL Stool Occult Blood (Negative) Blood Type B Positive Blood Type Recheck B Pos Bld Type Recheck Status No Antibody Screen NEGATIVE Spec Expiration Date 05/04/20212302 Disposition Clinical Impression: Melena, GI bleed Disposition: ADMITTED IP TO THIS [facility] Condition: Stable Is patient prescribed a controlled substance at d/c from ED?: No Referrals: Marcello Kaiser MD [Primary Care Provider] - 1-2 days Decision to Admit Reason: Admit from EC Decision Date: 05/01/21 Decision Time: 17:39
[2021-05-01 16:31] LABS: Basophils # (A) 0.1 k/uL (0-0.2); Basophils % (A) 1 %; Eosinophils # (A) 0.1 k/uL (0-0.7); Eosinophils % (A) 1 %; HCT 36.9 % (34.0-46.0); HGB 12.2 gm/dL (11.4-16.0); Lymphocytes # (A) 1.8 k/uL (1.0-4.8); Lymphocytes % (A) 17 %; MCHC 32.9 g/dL (31.0-37.0); Mean Platelet Volume 8.9; Monocytes # (A) 0.4 k/uL (0-1.0); Monocytes % (A) 4 %; Neutrophils # (A) 8.1 k/uL (1.3-7.7); Neutrophils % (A) 76 %; Platelet Count 215 k/uL (150-450); RBC 3.93 m/uL (3.80-5.40); RDW 13.3 % (11.5-15.5); WBC 10.6 k/uL (3.8-10.6)
[2021-05-01 16:40] LABS: INR 1.1 (<1.2); Prothrombin Time 11.3 sec (9.0-12.0)
[2021-05-01 16:41] LABS: Albumin 3.6 g/dL (3.5-5.0); Magnesium 1.8 mg/dL (1.6-2.3); Potassium 4.4 mmol/L (3.5-5.1); Total Bilirubin 0.6 mg/dL (0.2-1.3)
[2021-05-01] MEDS ORDERED: NALOXONE 0.4 MG/ML 1 ML VIAL IV PRN (17:34)
[2021-05-01] MEDS ORDERED: ACETAMINOPHEN TAB 325 MG TAB PO PRN (17:34)
[2021-05-01] MEDS: SODIUM CHLORIDE 0.9% 1,000 ML IV SCH (17:51)
[2021-05-01] MEDS: PANTOPRAZOLE 40 MG/10 ML VIAL IVP SCH (22:28)
[2021-05-01 23:16] LABS: Basophils % (A) 0 %; Eosinophils # (A) 0.2 k/uL (0-0.7); Eosinophils % (A) 3 %; HCT 34.3 % (34.0-46.0); HGB 11.3 gm/dL (11.4-16.0); Lymphocytes # (A) 3.1 k/uL (1.0-4.8); Lymphocytes % (A) 37 %; MCH 31.3 pg (25.0-35.0); MCV 94.9 fL (80.0-100.0); Mean Platelet Volume 8.6; Monocytes # (A) 0.4 k/uL (0-1.0); Monocytes % (A) 5 %; Neutrophils # (A) 4.6 k/uL (1.3-7.7); Neutrophils % (A) 54 %; Platelet Count 189 k/uL (150-450); RBC 3.61 m/uL (3.80-5.40); RDW 13.5 % (11.5-15.5); WBC 8.5 k/uL (3.8-10.6)
[2021-05-02 04:14] LABS: Basophils % (A) 0 %; Eosinophils # (A) 0.1 k/uL (0-0.7); Eosinophils % (A) 2 %; HGB 10.9 gm/dL (11.4-16.0); Lymphocytes # (A) 2.9 k/uL (1.0-4.8); Lymphocytes % (A) 36 %; MCHC 33.1 g/dL (31.0-37.0); MCV 96.7 fL (80.0-100.0); Mean Platelet Volume 8.3; Monocytes # (A) 0.4 k/uL (0-1.0); Monocytes % (A) 5 %; Neutrophils # (A) 4.4 k/uL (1.3-7.7); Neutrophils % (A) 55 %; Platelet Count 177 k/uL (150-450); RBC 3.41 m/uL (3.80-5.40); RDW 13.5 % (11.5-15.5); WBC 8.1 k/uL (3.8-10.6)
[2021-05-02] MEDS: PANTOPRAZOLE 40 MG/10 ML VIAL IVP SCH ×2 (09:42→20:34)
[2021-05-02] MEDS ORDERED: PEG 3350-NA SULF,BICARB,CL/KCL 4,000 ML BOTTLE PO ONE (11:00)
--- NOTE | 2021-05-02 12:06 | P.HPIM ---
History of Present Illness H&P Date: 05/02/21 HISTORY OF PRESENT ILLNESS This is an 81-year-old female patient of Dr. Marcello Kaiser and Dr. REBEKAH Hopkins with past medical history of coronary artery disease status post CABG with PRASAD to LAD in 2003, hypertension, May-Thurner syndrome status post femoral vein stenting, hypertension, hyperlipidemia, DVT. Patient had a recent hospitalization in March for chest pain, acute coronary syndrome was ruled out. Patient was cleared for discharge by cardiology with plan for follow-up with Dr. REBEKAH Hopkins. Patient now presents with episode of GI bleeding. She states that on Saturday she went to a wedding and had 3 glasses of wine. She denies any nonsteroidals but takes eliquis due to DVT. Yesterday she started at 8 AM with diarrhea that was black. Patient states that she had 9 episodes of black liquid stools. Should pain across the upper abdomen but most severe at the epigastric area. She did not take her eliquis yesterday. She had a colonoscopy with Dr. Martinez 10 years ago which was normal. Patient presented to [facility] emergency center for ev aluation. She was found to be afebrile, heart rate in the 70s, blood pressure initially 80/60 and pulse ox 94% on room air. Repeat blood pressure was 127/85. EKG is sinus rhythm with sinus arrhythmia. Initial hemoglobin was 12.2 with repeat at 11.3 and 10.9. BUN 51 creatinine 1.11. Blood sugar 126. Liver function tests were negative. Stool for occult blood was positive. Coronal virus PCR not detected. Patient was started on Protonix IV twice daily, IV fluids, consult with Dr. Thomas and she is scheduled for EGD and colonoscopy for tomorrow. REVIEW OF SYSTEMS Constitutional: No fever, no chills, no night sweats. No weight change. No weakness, fatigue or lethargy. No daytime sleepiness. EENT: No headache. No blurred vision or double vision, no loss of vision. No loss of Hearing, no ringing in the ears, no dizziness. No nasal drainage or congestion. No epistaxis. No sore throat. Lungs: No shortness of breath, cough, no sputum production. No wheezing. Cardiovascular: No chest pain, no lower extremity edema. No palpitations. No paroxysmal nocturnal dyspnea. No orthopnea. No lightheadedness or dizziness. No syncopal episodes. Abdominal: No abdominal pain. No nausea, vomiting. Reports diarrhea. No constipation. Reports bloody or tarry stools.. No loss of appetite. Genitourinary: No dysuria, increased frequency, urgency. No urinary retention. Musculoskeletal: No myalgias. No muscle weakness, no gait dysfunction, no frequent falls. No back pain. No neck pain. Integumentary: No wounds, no lesions. No rash or pruritus. No unusual bruising. No change in hair or nails. Neurologic: No aphasia. No facial droop. No change in mentation. No head injury. No headache. No paralysis. No paresthesia. Psychiatric: No depression. No anxiety. No mood swings. Endocrine: No abnormal blood sugars. No weight change. SOCIAL HISTORY Patient was a smoker for around 10 years of 1-2 cigarettes per day and quit 40- 50 years ago. She drinks wine occasionally. She is retired, and lives at home with her and she is a caregiver for her . FAMILY HISTORY Mother at age 67 from alcohol abuse with history of coronary artery disease. Father at age 33 from leukemia. Patient has 2 sisters 84 and 86 years old and still living with no major medical problems. Patient does not have any brothers. Patient has 4 children with no major medical problems. PHYSICAL EXAMINATION Gen: This is an [id number] female. Patient is resting on ER stretcher and appears to be comfortable and in no acute distress. HEENT: Head is atraumatic, normocephalic. Pupils equal, round. Sclerae is anicteric. NECK: Supple. No JVD. No lymphadenopathy. No thyromegaly. LUNGS: Clear to auscultation. No wheezes or rhonchi. No intercostal retractions. HEART: Regular rate and rhythm. No murmur. ABDOMEN: Soft. Bowel sounds are present. No masses. Mild epigastric tenderness. EXTREMITIES: No pedal edema. No calf tenderness. NEUROLOGICAL: Patient is awake, alert and oriented x3. Cranial nerves 2 through 12 are grossly intact. ASSESSMENT AND PLAN 1. Abdominal pain most likely secondary to gastritis. Continue Protonix 40 mg IV push twice daily. 2. Acute GI bleed. Continue Protonix, consult with general surgery, EGD and colonoscopy scheduled for tomorrow. 3. History of coronary artery disease status post CABG, stable. No complaints of chest pain. Hold aspirin. 4. Hypertension. Resume Vasotec this evening with parameters to hold for systolic blood pressure less than 120, resume Lopressor 25 mg twice daily. 5. Hyperlipidemia. 6. History of DVT. Hold eliquis 7. History of May-Thurner syndrome status post femoral vein stenting. 8. GI prophylaxis. Protonix. 9. DVT prophylaxis. SCDs and ZOE hose. Patient will be admitted to the hospital for a minimum of 2 night stay. DISCHARGE PLAN Home. Impression and plan of care have been directed as dictated by the signing physician. Tootie Mccain nurse practitioner acting as scribe for signing physician. Past Medical History Past Medical History: Coronary Artery Disease (CAD), Deep Vein Thrombosis (DVT), GERD/Reflux, GI Bleed, Hyperlipidemia, Hypertension Additional Past Medical History / Comment(s): DVT on 07/07; May Thurner syndrome History of Any Multi-Drug Resistant Organisms: None Reported Past Surgical History: Back Surgery, Cholecystectomy, Coronary Bypass/CABG, Joint Replacement, Orthopedic Surgery Additional Past Surgical History / Comment(s): L knee replacement followed by sepsis. CABG X2 in 2001. Past Anesthesia/Blood Transfusion Reactions: No Reported Reaction Past Psychological History: Depression Smoking Status: Former smoker Past Alcohol Use History: Rare Past Drug Use History: None Reported - Past Family History Father Family Medical History: Cancer Additional Family Medical History / Comment(s): Leukemia Mother Family Medical History: Myocardial Infarction ([place]) Additional Family Medical History / Comment(s): Alcoholism Medications and Allergies Home Medications Medication Instructions Recorded Confirmed Type Enalapril [Vasotec] 10 mg PO BID 07/09/14 05/01/21 History Metoprolol Tartrate [Lopressor] 25 mg PO BID 07/09/14 05/01/21 History PARoxetine [Paxil] 20 mg PO DAILY 04/06/15 05/01/21 History Apixaban [Eliquis] 5 mg PO BID 05/06/20 05/01/21 History Multivitamins, Thera [Multivitamin 1 tab PO DAILY 04/03/21 05/01/21 History (formulary)] [place]-3 Fatty Acids/Fish Oil [Fish 1 cap PO DAILY 04/03/21 05/01/21 History Oil 1,000 mg Softgel] Aspirin EC [Ecotrin] 325 mg PO DAILY 05/01/21 05/01/21 History Potassium Gluconate [Potassium 99 mg PO DAILY 05/01/21 05/01/21 History Gluconate ER] Allergies Allergy/AdvReac Type Severity Reaction Status Date / Time No Known Allergies Allergy Verified 05/01/21 15:47 Physical Exam Vitals: Vital Signs Temp Pulse Resp BP Pulse Ox 05/02/21 03:00 66 17 139/88 100 05/01/21 22:29 76 18 117/70 99 05/01/21 20:00 71 18 133/75 96 05/01/21 17:48 78 18 127/85 97 05/01/21 15:44 98 F 78 18 80/60 94 L Intake and Output 05/01/21 05/02/21 05/02/21 22:59 06:59 14:59 Other: Weight 95.708 kg Results CBC & Chem 7: 05/02/21 04:01 05/01/21 16:03 Labs: Abnormal Lab Results - Last 24 Hours (Table) 05/01/21 05/01/21 05/01/21 Range/Units 16:03 16:03 16:03 RBC (3.80-5.40) m/uL Hgb (11.4-16.0) gm/dL Hct (34.0-46.0) % Neutrophils # 8.1 H (1.3-7.7) k/uL Chloride 111 H (98-107) mmol/L BUN 51 H (7-17) mg/dL Creatinine 1.11 H (0.52-1.04) mg/dL Glucose 126 H (74-99) mg/dL Total Protein 6.0 L (6.3-8.2) g/dL Stool Occult Blood Positive H (Negative) 05/01/21 05/02/21 Range/Units 23:09 04:01 RBC 3.61 L 3.41 L (3.80-5.40) m/uL Hgb 11.3 L 10.9 L (11.4-16.0) gm/dL Hct 33.0 L (34.0-46.0) % Neutrophils # (1.3-7.7) k/uL Chloride (98-107) mmol/L BUN (7-17) mg/dL Creatinine (0.52-1.04) mg/dL Glucose (74-99) mg/dL Total Protein (6.3-8.2) g/dL Stool Occult Blood (Negative)
--- NOTE | 2021-05-02 13:08 | P.GSCN ---
History of Present Illness Consult date: 05/02/21 History of present illness: CHIEF COMPLAINT: GI bleed HISTORY OF PRESENT ILLNESS: This is a 81-year-old female who presents to the hospital with complaints of bleeding per rectum and black stools. Patient has been having black stools. Symptoms started yesterday morning. Patient denies any abdominal pain. She is on Eliquis for history of DVT. Her hemoglobin on [place] mission was 12.2 and has trended downwards to 10.9. Her last colonoscopy and EGD was in [address] Gómez and had shown a small hiatal hernia and diverticulosis and internal hemorrhoids. Patient denies any nausea or vomiting. Patient denies any fever, chills or sweats. PAST MEDICAL HISTORY: Coronary artery disease with CABG, DVT, GERD, hyperlipidemia and hypertension PAST SURGICAL HISTORY: Back Surgery, Cholecystectomy, Coronary Bypass/CABG, Joint Replacement, Orthopedic Surgery MEDICATIONS: See list. ALLERGIES: No known ALLERGY SOCIAL HISTORY: No illicit drug use. Former smoker REVIEW OF SYSTEMS: CONSTITUTIONAL: Denies fever or chills. HEENT: Denies blurred vision, vision changes, or eye pain. Denies hemoptysis CARDIOVASCULAR: Denies chest pain or pressure. RESPIRATORY: No shortness of breath. GASTROINTESTINAL: See HPI for pertinent findings HEMATOLOGIC: Denies bleeding disorders. GENITOURINARY: Denies any blood in urine or increased urinary frequency. SKIN: Denies pruitis. Denies rash. PHYSICAL EXAM: VITAL SIGNS: Reviewed GENERAL: Well-developed in no acute distress. HEENT: No sclera icterus. Extraocular movements grossly intact. Moist buccal mucosa. Head is atraumatic, normocephalic. No nasal drainage. ABDOMEN: Soft. Nondistended. Nontender NEUROLOGIC: Alert and oriented. Cranial nerves II through XII grossly intact. LABORATORY DATA: WBC 8.1 hemoglobin has trended down from 12.2-10.9 platelets 177 creatinine 1.11 sodium 141 potassium 4.4 Fecal occult blood positive COVID-19 not detected IMAGING: ASSESSMENT: 1. Acute GI bleed with black stools 2. Acute blood loss anemia PLAN: -Patient scheduled for EGD and colonoscopy tomorrow, 05/03/[address] Thmoas -Patient can have clear liquids today and then nothing by mouth after midnight -Start GoLYTELY prep -Continue IV Protonix -Hold Eliquis -Continue IV fluids Thank you for this consultation Physician Coffee Host note has been reviewed by physician. Signing provider agrees with the documented findings, assessment, and plan of care. Past Medical History Past Medical History: Coronary Artery Disease (CAD), Deep Vein Thrombosis (DVT), GERD/Reflux, GI Bleed, Hyperlipidemia, Hypertension Additional Past Medical History / Comment(s): DVT on 07/07; May Thurner syndrome History of Any Multi-Drug Resistant Organisms: None Reported Past Surgical History: Back Surgery, Cholecystectomy, Coronary Bypass/CABG, Joint Replacement, Orthopedic Surgery Additional Past Surgical History / Comment(s): L knee replacement followed by sepsis. CABG X2 in 2001. Past Anesthesia/Blood Transfusion Reactions: No Reported Reaction Past Psychological History: Depression Smoking Status: Former smoker Past Alcohol Use History: Rare Past Drug Use History: None Reported - Past Family History Father Family Medical History: Cancer Additional Family Medical History / Comment(s): Leukemia Mother Family Medical History: Myocardial Infarction ([place]) Additional Family Medical History / Comment(s): Alcoholism Medications and Allergies Home Medications Medication Instructions Recorded Confirmed Type Enalapril [Vasotec] 10 mg PO BID 07/09/14 05/01/21 History Metoprolol Tartrate [Lopressor] 25 mg PO BID 07/09/14 05/01/21 History PARoxetine [Paxil] 20 mg PO DAILY 04/06/15 05/01/21 History Apixaban [Eliquis] 5 mg PO BID 05/06/20 05/01/21 History Multivitamins, Thera [Multivitamin 1 tab PO DAILY 04/03/21 05/01/21 History (formulary)] [place]-3 Fatty Acids/Fish Oil [Fish 1 cap PO DAILY 04/03/21 05/01/21 History Oil 1,000 mg Softgel] Aspirin EC [Ecotrin] 325 mg PO DAILY 05/01/21 05/01/21 History Potassium Gluconate [Potassium 99 mg PO DAILY 05/01/21 05/01/21 History Gluconate ER] Allergies Allergy/AdvReac Type Severity Reaction Status Date / Time No Known Allergies Allergy Verified 05/01/21 15:47 Surgical - Exam Vital Signs Temp Pulse Resp BP Pulse Ox 98 F 78 18 80/60 94 L 05/01/21 15:44 05/01/21 15:44 05/01/21 15:44 05/01/21 15:44 05/01/21 15:44 Results - Labs 05/02/21 04:01 05/01/21 16:03 Abnormal Lab Results - Last 24 Hours (Table) 05/01/21 05/01/21 05/01/21 Range/Units 16:03 16:03 16:03 RBC (3.80-5.40) m/uL Hgb (11.4-16.0) gm/dL Hct (34.0-46.0) % Neutrophils # 8.1 H (1.3-7.7) k/uL Chloride 111 H (98-107) mmol/L BUN 51 H (7-17) mg/dL Creatinine 1.11 H (0.52-1.04) mg/dL Glucose 126 H (74-99) mg/dL Total Protein 6.0 L (6.3-8.2) g/dL Stool Occult Blood Positive H (Negative) 05/01/21 05/02/21 Range/Units 23:09 04:01 RBC 3.61 L 3.41 L (3.80-5.40) m/uL Hgb 11.3 L 10.9 L (11.4-16.0) gm/dL Hct 33.0 L (34.0-46.0) % Neutrophils # (1.3-7.7) k/uL Chloride (98-107) mmol/L BUN (7-17) mg/dL Creatinine (0.52-1.04) mg/dL Glucose (74-99) mg/dL Total Protein (6.3-8.2) g/dL Stool Occult Blood (Negative) Diabetes panel 05/01/21 Range/Units 16:03 Sodium 141 (137-145) mmol/L Potassium 4.4 (3.5-5.1) mmol/L Chloride 111 H (98-107) mmol/L Carbon Dioxide 23 (22-30) mmol/L BUN 51 H (7-17) mg/dL Creatinine 1.11 H (0.52-1.04) mg/dL Glucose 126 H (74-99) mg/dL Calcium 9.0 (8.4-10.2) mg/dL AST 25 (14-36) U/L ALT 18 (4-34) U/L Alkaline Phosphatase 51 (38-126) U/L Total Protein 6.0 L (6.3-8.2) g/dL Albumin 3.6 (3.5-5.0) g/dL Calcium panel 05/01/21 Range/Units 16:03 Calcium 9.0 (8.4-10.2) mg/dL Albumin 3.6 (3.5-5.0) g/dL Pituitary panel 05/01/21 Range/Units 16:03 Sodium 141 (137-145) mmol/L Potassium 4.4 (3.5-5.1) mmol/L Chloride 111 H (98-107) mmol/L Carbon Dioxide 23 (22-30) mmol/L BUN 51 H (7-17) mg/dL Creatinine 1.11 H (0.52-1.04) mg/dL Glucose 126 H (74-99) mg/dL Calcium 9.0 (8.4-10.2) mg/dL Adrenal panel 05/01/21 Range/Units 16:03 Sodium 141 (137-145) mmol/L Potassium 4.4 (3.5-5.1) mmol/L Chloride 111 H (98-107) mmol/L Carbon Dioxide 23 (22-30) mmol/L BUN 51 H (7-17) mg/dL Creatinine 1.11 H (0.52-1.04) mg/dL Glucose 126 H (74-99) mg/dL Calcium 9.0 (8.4-10.2) mg/dL Total Bilirubin 0.6 (0.2-1.3) mg/dL AST 25 (14-36) U/L ALT 18 (4-34) U/L Alkaline Phosphatase 51 (38-126) U/L Total Protein 6.0 L (6.3-8.2) g/dL Albumin 3.6 (3.5-5.0) g/dL
[2021-05-02] MEDS: SODIUM CHLORIDE 0.9% 1,000 ML IV SCH (16:41)
[2021-05-02] MEDS: METOPROLOL TARTRATE 25 MG TAB PO SCH (20:33)
[2021-05-03] MEDS: SODIUM CHLORIDE 0.9% 1,000 ML IV SCH ×3 (06:03→23:54)
[2021-05-03] MEDS: lisinopriL 20 MG TAB PO SCH (07:53)
[2021-05-03] MEDS: METOPROLOL TARTRATE 25 MG TAB PO SCH ×2 (07:53→20:45)
[2021-05-03] MEDS: PANTOPRAZOLE 40 MG/10 ML VIAL IVP SCH (07:53)
[2021-05-03] MEDS: MULTIVITAMINS, THERA 1 EACH TAB PO SCH (07:53)
[2021-05-03] MEDS: PARoxetine 20 MG TAB PO SCH (07:53)
[2021-05-03] MEDS: NON FORMULARY DRUG (Potassium Gluconate [Potassium Gluconate Er] 99 MG Tablet) PO SCH (07:55)
--- NOTE | 2021-05-03 11:53 | P.CRDCN ---
History of Present Illness History of present illness: Saturday morning she started having black stools. HISTORY OF PRESENTING ILLNESS This is a pleasant 81-year-old female past medical history significant for May-Thurner syndrome, peripheral vascular disease status post left femoral stenting, hypertension, history of DVT maintained on Eliquis and coronary artery disease status post bypass grafting 2003. She follows in the office with Dr. Hopkins. We have been asked to see in consultation for new onset atrial fibrillation. Presented to the hospital for symptoms of black stools that started on Saturday morning. She states she inadvertently took her eliquis doses within 3 hours of each other on Saturday. She states it occurred about 6 times. She called her PCP and was advised to come to the emergency department. Occult testing was positive. She denies symptoms of chest pain, shortness of breath, dizziness or palpitations. She was seen and evaluation by surgery and is scheduled to undergo an EGD colonoscopy today. Last evening telemetry tracings appeared irregular prompting an EKG revealing atrial fibrillation. The patient was asymptomatic. Currently in sinus rhythm with PACs. Laboratory data reviewed, WBC 8.1, hemoglobin on admission 12.2 repeat today 10.9, platelets 177, sodium 141, potassium 4.4, creatinine 1.11, magnesium 1.8. Current daily cardiac medications include Eliquis 5 mg twice a day, enalapril 10 mg twice a day, aspirin 81 mg daily and Lopressor 25 mg twice a day. Most recent echocardiogram obtained February 2021 revealed preserved LV systolic function with ejection fraction 55%, mild to moderate MR and mild aortic insufficiency. Most recent stress test performed in the office 02/16/2021 negative for reversible cardiac ischemia. REVIEW OF SYSTEMS At the time of my exam: CONSTITUTIONAL: Denies fever or chills. CARDIOVASCULAR: Denies chest pain, shortness of breath, orthopnea, PND or palp itations. RESPIRATORY: Denies cough. GASTROINTESTINAL: Denies abdominal pain, diarrhea, constipation, nausea or vomiting. MUSCULOSKELETAL: Denies myalgias. NEUROLOGIC: Denies numbness, tingling, headache or weakness. ENDOCRINE: Denies fatigue, weight change, polydipsia or polyurina. GENITOURINARY: Denies burning, hematuria or urgency with micturation. HEMATOLOGIC: Denies history of anemia or bleeding. PHYSICAL EXAMINATION Blood pressure 153/79 heart rate 62 afebrile and maintaining oxygen saturation on room air. CONSTITUTIONAL: No apparent distress. HEENT: Head is normocephalic. Pupils are equal, round. Sclerae anicteric. Mucous membranes of the mouth are moist. No JVD. No carotid bruit. CHEST EXAMINATION: Lungs are clear to auscultation. No chest wall tenderness is noted on palpation or with deep breathing. HEART EXAMINATION: Regular rate and rhythm. S1, S2 heard. Systolic ejection murmur at the left sternal border, no gallops or rub. ABDOMEN: Soft, nontender. EXTREMITIES: 2+ peripheral pulses, trace nonpitting edema on the left, no edema on the right. No calf tenderness. NEUROLOGIC EXAMINATION: Patient is awake, alert and oriented x3. ASSESSMENT Acute GI bleeding New-onset paroxysmal atrial fibrillation artery and Eliquis secondary to history of DVT with controlled ventricular rates, currently in sinus rhythm Anemia secondary to GI bleeding Acute kidney injury Coronary artery disease status post bypass grafting May Thurner syndrome Peripheral vascular disease status post left femoral stenting Hypertension History of DVT maintained on Eliquis PLAN Hold Eliquis pending EGD colonoscopy findings. Continue current dose of beta [place]. Further recommendations to follow based upon clinical course. Thank you kindly for this consultation. Nurse Practitioner note has been reviewed, I agree with a documented findings and plan of care. Patient was seen and examined. Past Medical History Past Medical History: Coronary Artery Disease (CAD), Deep Vein Thrombosis (DVT), GERD/Reflux, GI Bleed, Hypertension Additional Past Medical History / Comment(s): DVT- From hip to ankle on 07/07; December Thurner syndrome, boderline hyperlipidemia-was taking anticholesterol meds but had sever leg cramps and stopped taking them History of Any Multi-Drug Resistant Organisms: None Reported Past Surgical History: Back Surgery, Cholecystectomy, Coronary Bypass/CABG, Joint Replacement, Orthopedic Surgery Additional Past Surgical History / Comment(s): L knee replacement followed by sepsis. CABG X2 in 2001. Past Anesthesia/Blood Transfusion Reactions: No Reported Reaction Smoking Status: Former smoker - Past Family History Father Family Medical History: Cancer Additional Family Medical History / Comment(s): Leukemia at 35 Mother Family Medical History: Myocardial Infarction ([place]) Additional Family Medical History / Comment(s): Alcoholism Medications and Allergies Home Medications Medication Instructions Recorded Confirmed Type Enalapril [Vasotec] 10 mg PO BID 07/09/14 05/01/21 History Metoprolol Tartrate [Lopressor] 25 mg PO BID 07/09/14 05/01/21 History PARoxetine [Paxil] 20 mg PO DAILY 04/06/15 05/01/21 History Apixaban [Eliquis] 5 mg PO BID 05/06/20 05/01/21 History Multivitamins, Thera [Multivitamin 1 tab PO DAILY 04/03/21 05/01/21 History (formulary)] [place]-3 Fatty Acids/Fish Oil [Fish 1 cap PO DAILY 04/03/21 05/01/21 History Oil 1,000 mg Softgel] Aspirin EC [Ecotrin] 325 mg PO DAILY 05/01/21 05/01/21 History Potassium Gluconate [Potassium 99 mg PO Q48H 05/01/21 05/02/21 History Gluconate ER] Allergies Allergy/AdvReac Type Severity Reaction Status Date / Time No Known Allergies Allergy Verified 05/01/21 15:47 Physical Exam Vitals: Vital Signs Temp Pulse Pulse Resp BP BP Pulse Ox 05/03/21 08:00 98.4 F 65 16 132/69 96 05/03/21 04:00 97.9 F 65 16 128/79 96 05/03/21 00:00 98.0 F 58 L 16 131/81 99 05/02/21 19:43 97.7 F 82 16 161/88 99 05/02/21 15:54 98.1 F 92 18 131/73 99 05/02/21 13:26 89 18 137/69 100 Intake and Output 05/02/21 05/03/21 05/03/21 22:59 06:59 14:59 Intake Total 1030 Balance 1030 Intake: IV 10 Invasive Line 1 10 Intake, IV Titration 900 Amount Sodium Chloride 0.9% 1, 900 000 ml @ 75 mls/hr IV . [id number] [facility] Rx#:[id number] Oral 120 Other: Voiding Method Toilet Toilet Toilet # Bowel Movements 3 Weight 95.708 kg 93.4 kg Results 05/02/21 04:01 05/01/21 16:03 Current Medications Generic Name Dose Route Start Last Admin Trade Name Freq PRN Reason Stop Dose Admin Acetaminophen 650 mg 05/01/21 17:34 Acetaminophen Tab 325 Mg Tab PO Q6HR PRN Mild Pain or Fever > 100.5 Sodium Chloride 1,000 mls @ 75 mls/hr 05/01/21 17:45 05/03/21 10:11 Saline 0.9% IV 75 mls/hr .[id number] RYLEE Administration Lisinopril 40 mg 05/03/21 09:00 05/03/21 07:53 Lisinopril 20 Mg Tab PO 40 mg DAILY RYLEE Administration Metoprolol Tartrate 25 mg 05/02/21 21:00 05/03/21 07:53 Metoprolol Tartrate 25 Mg Tab PO 25 mg BID RYLEE Administration Multivitamins 1 each 05/03/21 09:00 05/03/21 07:53 Multivitamins, Thera 1 Each Tab PO 1 each DAILY RYLEE Administration Naloxone HCl 0.2 mg 05/01/21 17:34 Naloxone 0.4 Mg/Ml 1 Ml Vial IV Q2M PRN Opioid Reversal Non-Formulary Medication 99 mg 05/03/21 09:00 05/03/21 07:55 Potassium Gluconate [Potassium Gluconate Er] PO Not Given DAILY RYLEE Pantoprazole Sodium 40 mg 05/01/21 21:00 05/03/21 07:53 Pantoprazole 40 Mg/10 Ml Vial IVP 40 mg BID RYLEE Administration Paroxetine HCl 20 mg 05/03/21 09:00 05/03/21 07:53 Paroxetine 20 Mg Tab PO 20 mg DAILY RYLEE Administration Intake and Output 05/02/21 05/03/21 05/03/21 22:59 06:59 14:59 Intake Total 1030 Balance 1030 Intake: IV 10 Invasive Line 1 10 Intake, IV Titration 900 Amount Sodium Chloride 0.9% 1, 900 000 ml @ 75 mls/hr IV . [id number] RYLEE Rx#:[id number] Oral 120 Other: Voiding Method Toilet Toilet Toilet # Bowel Movements 3 Weight 95.708 kg 93.4 kg 05/02/21 04:01 05/01/21 16:03
[2021-05-03] MEDS ORDERED: IV FLUID CONTINUATION 400 ML IV ONE (12:32)
[2021-05-03] MEDS ORDERED: PROPOFOL 10 MG/ML 20 ML VIAL IV ONE (12:32)
[2021-05-03] MEDS ORDERED: LIDOCAINE 1% INJ 10MG/ML (20 ML MDV) ONE (12:32)
--- NOTE | 2021-05-03 13:00 | P.OP ---
Date of Procedure: 05/03/21 Preoperative Diagnosis: GI bleed Postoperative Diagnosis: Antral gastritis Normal colon No evidence of GI bleed in the upper and lower GI tract Procedure(s) Performed: EGD Colonoscopy Anesthesia: MAC Surgeon: Reji Thomas Pathology: other (Antrum) Condition: stable Disposition: PACU Description of Procedure: Patient's placed on the endoscopy table in the lateral position. She received IV sedation. The gastroscope placed oropharynx passed in the esophagus and into the stomach. Scope was then placed through the pylorus. The first and second portion of the duodenum appeared normal. Scope was then brought back the antrum this appeared mildly inflamed. A biopsies performed. There was no blood seen in the duodenum or stomach. Scope was unretroflexed and remainder the stomach appeared normal. The GE junction was at 40 cm. The distal esophagus appeared normal. The proximal esophagus.. Scope was withdrawn for patient. Next digital rectal exam was performed which revealed no abnormalities. The flexible colonoscope was then placed patient anus passed throughout the entire colon. The ileocecal valve was visualized. Cecum was visualized. There was bilious fluid seen entering the cecum. The ascending colon, transverse colon and descending colon appeared normal. There is no evidence of any blood in the colon. There were no polyps or tumors seen. The scope summer back into the sigmoid colon this appeared normal. Scope was then brought back the rectum the stomach. Scope was withdrawn for patient. There was no evidence of any GI bleed in the upper and lower GI tract.
[2021-05-04 04:38] VITALS: TEMP 98
[2021-05-04] MEDS ORDERED: PANTOPRAZOLE 40 MG TABLET PO SCH (07:30)
[2021-05-04] MEDS: METOPROLOL TARTRATE 25 MG TAB PO SCH (08:31)
[2021-05-04] MEDS: PARoxetine 20 MG TAB PO SCH (08:31)
[2021-05-04] MEDS: lisinopriL 20 MG TAB PO SCH (08:31)
[2021-05-04] MEDS: MULTIVITAMINS, THERA 1 EACH TAB PO SCH (08:31)
[2021-05-04] MEDS: NON FORMULARY DRUG (Potassium Gluconate [Potassium Gluconate Er] 99 MG Tablet) PO SCH (08:31)
[2021-05-04 09:25] VITALS: BP 141/61; PULSE 72; RESP 20
--- NOTE | 2021-05-04 09:42 | P.DS ---
Providers Date of admission: 05/01/21 17:36 Expected date of discharge: 05/04/21 Attending physician: Elizabeth Hackett Consults: 05/01/21 17:35 Consult Physician Routine Consulting Provider: Reij Thomas Consult Reason/Comments: GI bleed Do you want consulting provider notified?: Already Contacted 05/02/21 17:35 Consult Physician Routine Consulting Provider: Karin Hopkins Consult Reason/Comments: a-fib/a-flutter Do you want consulting provider notified?: Already Contacted Primary care physician: Marcello Kaiser [facility] Course: HISTORY OF PRESENT ILLNESS This is an 81-year-old female patient of Dr. Marcello Kaiser and Dr. REBEKAH Hopkins with past medical history of coronary artery disease status post CABG with PRASAD to LAD in 2003, hypertension, May-Thurner syndrome status post femoral vein stenting, hypertension, hyperlipidemia, DVT. Patient had a recent hospitalization in March for chest pain, acute coronary syndrome was ruled out. Patient was cleared for discharge by cardiology with plan for follow-up with Dr. REBEKAH Hopkins. Patient now presents with episode of GI bleeding. She states that on Saturday she went to a wedding and had 3 glasses of wine. She denies any nonsteroidals but takes eliquis due to DVT. Yesterday she started at 8 AM with diarrhea that was black. Patient states that she had 9 episodes of black liquid stools. Should pain across the upper abdomen but most severe at the epigastric area. She did not take her eliquis yesterday. She had a colonoscopy with Dr. Martinez 10 years ago which was normal. Patient presented to [facility] emergency center for evaluation. She was found to be afebrile, heart rate in the 70s, blood pressure initially 80/60 and pulse ox 94% on room air. Repeat blood pressure was 127/85. EKG is sinus rhythm with sinus arrhythmia. Initial hemoglobin was 12.2 with repeat at 11.3 and 10.9. BUN 51 creatinine 1.11. Blood sugar 126. Liver function tests were negative. Stool for occult blood was positive. Coronal virus PCR not detected. Patient was started on Protonix IV twice daily, IV fluids, consult with Dr. Thomas and she is scheduled for EGD and colonoscopy for tomorrow. 05/03: Denies having any chest pain or shortness of breath. She denies having any black stools and states her last bowel movement was brown. Iron studies were ordered. She is scheduled for EGD today with Dr. Thomas. Anticipate probable discharge home tomorrow. 05/03: Yesterday, patient underwent EGD and colonoscopy with Dr. Thomas that revealed antral gastritis and normal colon. No evidence of GI bleed in the upper and lower GI tract. Biopsy reports are pending. Patient denies having any further episodes of bleeding. No black tarry stools. Patient will be placed on aspirin. Cardiology has resumed her eliquis. Patient will be discharged home today in stable condition ASSESSMENT AND PLAN 1. Abdominal pain most likely secondary to antral gastritis. 2. Acute GI bleed. 3. History of coronary artery disease status post CABG, stable. 4. Hypertension. 5. Hyperlipidemia. 6. History of DVT. 7. History of May-Thurner syndrome status post femoral vein stenting. DISCHARGE PLAN Home. Impression and plan of care have been directed as dictated by the signing physician. Tootie Mccain nurse practitioner acting as scribe for signing physician. Patient Condition at Discharge: Stable Plan - Discharge Summary Discharge Rx Participant: Yes New Discharge Prescriptions: New Apixaban [Eliquis] 2.5 mg PO BID #60 tab Ferrous Sulfate [Feosol] 325 mg PO DAILY #30 tab Pantoprazole [Protonix] 40 mg PO AC-BRKFST #30 tab Continue Metoprolol Tartrate [Lopressor] 25 mg PO BID Enalapril [Vasotec] 10 mg PO BID PARoxetine [Paxil] 20 mg PO DAILY [place]-3 Fatty Acids/Fish Oil [Fish Oil 1,000 mg Softgel] 1 cap PO DAILY Potassium Gluconate [Potassium Gluconate ER] 99 mg PO Q48H Aspirin EC [Ecotrin] 325 mg PO DAILY Multivitamins, Thera [Multivitamin (formulary)] 1 tab PO DAILY Discontinued Apixaban [Eliquis] 5 mg PO BID Discharge Medication List Enalapril [Vasotec] 10 mg PO BID 07/09/14 [History] Metoprolol Tartrate [Lopressor] 25 mg PO BID 07/09/14 [History] PARoxetine [Paxil] 20 mg PO DAILY 04/06/15 [History] Multivitamins, Thera [Multivitamin (formulary)] 1 tab PO DAILY 04/03/21 [History] [place]-3 Fatty Acids/Fish Oil [Fish Oil 1,000 mg Softgel] 1 cap PO DAILY 04/03/21 [History] Aspirin EC [Ecotrin] 325 mg PO DAILY 05/01/21 [History] Potassium Gluconate [Potassium Gluconate ER] 99 mg PO Q48H 05/01/21 [History] Apixaban [Eliquis] 2.5 mg PO BID #60 tab 05/04/21 [Rx] Ferrous Sulfate [Feosol] 325 mg PO DAILY #30 tab 05/04/21 [Rx] Pantoprazole [Protonix] 40 mg PO AC-BRKFST #30 tab 05/04/21 [Rx] Follow up Appointment(s)/Referral(s): Karin Hopkins MD [STAFF PHYSICIAN] - 05/25/21 12:15 pm Marcello Kaiser MD [Primary Care Provider] - 05/09/21 1:15 pm Patient Instructions/Handouts: Gastrointestinal Bleeding (DC), Colonoscopy (DC), Upper Endoscopy (DC) Activity/Diet/Wound Care/Special Instructions: GI BLEED Take all new medication as directed. Avoid and foods that can be irritating to your intestines; Caffeine, acidic, spicy foods or foods that cause heartburn. Avoid Motrin (ibuprofen) and Aleve (naproxen). These medications can increase your risk of internal bleeding. Tylenol (acetaminophen) is safe to take as long as you do not have any liver disease. Avoid drinking alcohol and smoking, these can also irritate your intestines and increase risk of internal bleeding. Increase activity gradually, do not overexert yourself. Your blood count is lower and your body will need time to recover. Warning signs of GI Bleeding: Black or tarry colored stools Bright red blood from rectum Bright red or dark blood mixed with stool Bright red vomit Vomit that looks like coffee grounds Signs that also may occur are dizziness, faintness, paleness, shortness of breath, weakness and overall feeling of fatigue. Discharge Disposition: HOME SELF-CARE
[2021-05-04] MEDS ORDERED: APIXABAN 2.5 MG TABLET PO SCH (09:45)
--- NOTE | 2021-05-04 10:52 | P.PN ---
Subjective Progress Note Date: 05/03/21 HISTORY OF PRESENT ILLNESS This is an 81-year-old female patient of Dr. Marcello Kaiser and Dr. REBEKAH Hopkins with past medical history of coronary artery disease status post CABG with PRASAD to LAD in 2003, hypertension, May-Thurner syndrome status post femoral vein stenting, hypertension, hyperlipidemia, DVT. Patient had a recent hospitalization in March for chest pain, acute coronary syndrome was ruled out. Patient was cleared for discharge by cardiology with plan for follow-up with Dr. REBEKAH Hopkins. Patient now presents with episode of GI bleeding. She states that on Saturday she went to a wedding and had 3 glasses of wine. She denies any nonsteroidals but takes eliquis due to DVT. Yesterday she started at 8 AM with diarrhea that was black. Patient states that she had 9 episodes of black liquid stools. Should pain across the upper abdomen but most severe at the epigastric area. She did not take her eliquis yesterday. She had a colonoscopy with Dr. Martinez 10 years ago which was normal. Patient presented to [facility] emergency center for evaluati on. She was found to be afebrile, heart rate in the 70s, blood pressure initially 80/60 and pulse ox 94% on room air. Repeat blood pressure was 127/85. EKG is sinus rhythm with sinus arrhythmia. Initial hemoglobin was 12.2 with repeat at 11.3 and 10.9. BUN 51 creatinine 1.11. Blood sugar 126. Liver function tests were negative. Stool for occult blood was positive. Coronal virus PCR not detected. Patient was started on Protonix IV twice daily, IV fluids, consult with Dr. Thomas and she is scheduled for EGD and colonoscopy for tomorrow. 05/03: Denies having any chest pain or shortness of breath. She denies having any black stools and states her last bowel movement was brown. Iron studies were ordered. She is scheduled for EGD today with Dr. Thomas. Anticipate probable discharge home tomorrow. REVIEW OF SYSTEMS Constitutional: No fever, no chills, no night sweats. No weight change. No weakness, fatigue or lethargy. No daytime sleepiness. EENT: No headache. No blurred vision or double vision, no loss of vision. No loss of Hearing, no ringing in the ears, no dizziness. No nasal drainage or congestion. No epistaxis. No sore throat. Lungs: No shortness of breath, cough, no sputum production. No wheezing. Cardiovascular: No chest pain, no lower extremity edema. No palpitations. No paroxysmal nocturnal dyspnea. No orthopnea. No lightheadedness or dizziness. No syncopal episodes. Abdominal: No abdominal pain. No nausea, vomiting. Denies diarrhea. No constipation. Denies bloody or tarry stools.. No loss of appetite. Genitourinary: No dysuria, increased frequency, urgency. No urinary retention. Musculoskeletal: No myalgias. No muscle weakness, no gait dysfunction, no frequent falls. No back pain. No neck pain. Integumentary: No wounds, no lesions. No rash or pruritus. No unusual bruising. No change in hair or nails. Neurologic: No aphasia. No facial droop. No change in mentation. No head injury. No headache. No paralysis. No paresthesia. Psychiatric: No depression. No anxiety. No mood swings. Endocrine: No abnormal blood sugars. No weight change. PHYSICAL EXAMINATION Gen: This is an [id number] female. Patient is resting in bed and appears to be comfortable and in no acute distress. HEENT: Head is atraumatic, normocephalic. Pupils equal, round. Sclerae is anicteric. NECK: Supple. No JVD. No lymphadenopathy. No thyromegaly. LUNGS: Clear to auscultation. No wheezes or rhonchi. No intercostal retractions. HEART: Regular rate and rhythm. No murmur. ABDOMEN: Soft. Bowel sounds are present. No masses. Mild epigastric tenderness. EXTREMITIES: No pedal edema. No calf tenderness. NEUROLOGICAL: Patient is awake, alert and oriented x3. Cranial nerves 2 through 12 are grossly intact. ASSESSMENT AND PLAN 1. Abdominal pain most likely secondary to gastritis. Continue Protonix 40 mg IV push twice daily. 2. Acute GI bleed. Continue Protonix, consult with general surgery, EGD today. 3. History of coronary artery disease status post CABG, stable. No complaints of chest pain. Hold aspirin. 4. Hypertension. Resume Vasotec this evening with parameters to hold for systolic blood pressure less than 120, resume Lopressor 25 mg twice daily. 5. Hyperlipidemia. 6. History of DVT. Hold eliquis 7. History of May-Thurner syndrome status post femoral vein stenting. 8. GI prophylaxis. Protonix. 9. DVT prophylaxis. SCDs and ZOE hose. DISCHARGE PLAN Home. Impression and plan of care have been directed as dictated by the signing physician. Tootie Mccain nurse practitioner acting as scribe for signing physician. Objective - Vital Signs Vital signs: Vital Signs Temp 98.4 F 05/03/21 08:00 Pulse 65 05/03/21 08:00 Resp 16 05/03/21 08:00 BP 132/69 05/03/21 08:00 Pulse Ox 96 05/03/21 08:00 Intake & Output 05/02/21 05/03/21 05/03/21 18:59 06:59 18:59 Intake Total 900 130 Balance 900 130 Weight 95.708 kg 93.4 kg Intake: IV 10 Invasive Line 1 10 Intake, IV Titration 900 Amount Sodium Chloride 0.9% 1, 900 000 ml @ 75 mls/hr IV . [id number] [facility] Rx#:[id number] Oral 120 Other: Voiding Method Toilet Toilet Toilet # Bowel Movements 3 - Labs CBC & Chem 7: 05/02/21 04:01 05/01/21 16:03
--- NOTE | 2021-05-04 11:49 | P.PN ---
Subjective Progress Note Date: 05/04/21 CHIEF COMPLAINT: GI bleed HISTORY OF PRESENT ILLNESS: Patient is status post EGD and colonoscopy which re vealed antral gastritis and normal colon. There is no evidence of GI bleed in the upper and lower GI tract. Patient denies any abdominal pain. She is tolerating diet. Denies any nausea or vomiting. She has had no further blood in her stools. Afebrile. No new labs for today. Patient's Eliquis dose was decreased. PHYSICAL EXAM: VITAL SIGNS: Reviewed. GENERAL: Well-developed in no acute distress. HEENT: No sclera icterus. Extraocular movements grossly intact. Moist buccal mucosa. Head is atraumatic, normocephalic. ABDOMEN: Soft. Nondistended. Nontender. NEUROLOGIC: Alert and oriented. Cranial nerves II through XII grossly intact. ASSESSMENT: 1. Acute GI bleed with black stools. Possibly due to patient's gastritis. Patient status post EGD and colonoscopy revealing antral gastritis and normal colon. 2. Acute blood loss anemia PLAN: -Patient is stable from surgical standpoint for discharge -Continue PPI Physician Manifest Clerk note has been reviewed by physician. Signing provider agrees with the documented findings, assessment, and plan of care. Objective - Vital Signs Vital signs: Vital Signs Temp 98.0 F 05/04/21 04:00 Pulse 72 05/04/21 08:00 Resp 20 05/04/21 08:00 BP 141/61 05/04/21 08:00 Pulse Ox 97 05/04/21 08:00 Intake & Output 05/03/21 05/04/21 05/04/21 18:59 06:59 18:59 Intake Total 730 10 240 Balance 730 10 240 Weight 86 kg Intake: IV 100 10 Invasive Line 2 10 Oral 630 240 Other: Voiding Method Toilet Toilet # Voids 2 3 # Bowel Movements 2 3 - Labs CBC & Chem 7: 05/02/21 04:01 05/01/21 16:03
--- NOTE | 2021-05-04 12:51 | P.PN ---
Subjective HISTORY OF PRESENTING ILLNESS This is a pleasant 81-year-old female past medical history significant for May-Thurner syndrome, peripheral vascular disease status post left femoral stenting, hypertension, history of DVT maintained on Eliquis and coronary artery disease status post bypass grafting 2003. She follows in the office with Dr. Hopkins. We have been asked to see in consultation for new onset atrial fibrillation. Presented to the hospital for symptoms of black stools that started on Saturday morning. She states she inadvertently took her eliquis doses within 3 hours of each other on Saturday. She states it occurred about 6 times. She called her PCP and was advised to come to the emergency department. Occult testing was positive. She denies symptoms of chest pain, shortness of breath, dizziness or palpitations. She was seen and evaluation by surgery and is scheduled to undergo an EGD colonoscopy today. Last evening telemetry tracings appeared irregular prompting an EKG revealing atrial fibrillation. The patient was asymptomatic. Currently in sinus rhythm with PACs. Laboratory data reviewed, WBC 8.1, hemoglobin on admission 12.2 repeat today 10.9, platelets 177, sodium 141, potassium 4.4, creatinine 1.11, magnesium 1.8. Current daily cardiac medications include Eliquis 5 mg twice a day, enalapril 10 mg twice a day, aspirin 81 mg daily and Lopressor 25 mg twice a day. Most recent echocardiogram obtained February 2021 revealed preserved LV systolic function with ejection fraction 55%, mild to moderate MR and mild aortic insufficiency. Most recent stress test performed in the office 02/16/2021 negative for reversible cardiac ischemia. 05/04/2021 Patient seen and examined resting comfortably in no acute distress. She is currently maintaining sinus rhythm. Blood pressure 141/61 heart rate 72 afebril e maintaining oxygen saturation on room air. Hemoglobin remained stable. EGD colonoscopy reveals no evidence of active bleeding. PHYSICAL EXAMINATION CONSTITUTIONAL: No apparent distress. HEENT: Head is normocephalic. Pupils are equal, round. Sclerae anicteric. Mucous membranes of the mouth are moist. No JVD. No carotid bruit. CHEST EXAMINATION: Lungs are clear to auscultation. No chest wall tenderness is noted on palpation or with deep breathing. HEART EXAMINATION: Regular rate and rhythm. S1, S2 heard. Systolic ejection murmur at the left sternal border, no gallops or rub. EXTREMITIES: 2+ peripheral pulses, trace nonpitting edema on the left, no edema on the right. No calf tenderness. ASSESSMENT Acute GI bleeding New-onset paroxysmal atrial fibrillation artery and Eliquis secondary to history of DVT with controlled ventricular rates, currently in sinus rhythm Anemia secondary to GI bleeding Acute kidney injury Coronary artery disease status post bypass grafting May Thurner syndrome Peripheral vascular disease status post left femoral stenting Hypertension History of DVT maintained on Eliquis PLAN Resume Eliquis 2.5 mg twice a day. Follow-up in the office with Dr. Hopkins in 2 weeks. Nurse Practitioner note has been reviewed, I agree with a documented findings and plan of care. Patient was seen and examined. Objective - Vital Signs Vital signs: Vital Signs Temp 98.0 F 05/04/21 04:00 Pulse 72 05/04/21 08:00 Resp 20 05/04/21 08:00 BP 141/61 05/04/21 08:00 Pulse Ox 97 05/04/21 08:00 Intake & Output 05/03/21 05/04/21 05/04/21 18:59 06:59 18:59 Intake Total 730 10 240 Balance 730 10 240 Weight 86 kg Intake: IV 100 10 Invasive Line 2 10 Oral 630 240 Other: Voiding Method Toilet Toilet # Voids 2 3 # Bowel Movements 2 3 - Labs CBC & Chem 7: 05/02/21 04:01 05/01/21 16:03
[2021-05-04 13:55] LABS: Ferritin 91.6 ng/mL (10.0-291.0)
[2021-05-04 15:06] LABS: % Iron Saturation 38.87 (12.00-45.00)
== END 2021-05-04 11:45 | disposition home or self-care (01) | DRG 378 ==
LOC: EC 15:30 → 3SCARD 17:36
PROVIDERS: ADMIT Family Medicine; ATTEND Family Medicine
PROC: 0DB68ZX Excision of Stomach, Via Natural or Artificial Opening Endoscopic, Diagnostic (ICD-10-PCS; principal; 2021-05-03 14:00)
PROC: 0DJD8ZZ Inspection of Lower Intestinal Tract, Via Natural or Artificial Opening Endoscopic (ICD-10-PCS; 2021-05-03 14:00)
DX: K92.2 Gastrointestinal hemorrhage, unspecified (principal); I87.1 Compression of vein; K29.70 Gastritis, unspecified, without bleeding; I48.0 Paroxysmal atrial fibrillation; N17.9 Acute kidney failure, unspecified; D62 Acute posthemorrhagic anemia; Z20.822 Contact with and (suspected) exposure to COVID-19; I25.10 Atherosclerotic heart disease of native coronary artery without angina pectoris; K21.9 Gastro-esophageal reflux disease without esophagitis; E78.5 Hyperlipidemia, unspecified; I10 Essential (primary) hypertension; K44.9 Diaphragmatic hernia without obstruction or gangrene; F32.9 Major depressive disorder, single episode, unspecified; Z96.652 Presence of left artificial knee joint; Z95.1 Presence of aortocoronary bypass graft; Z87.891 Personal history of nicotine dependence; Z86.718 Personal history of other venous thrombosis and embolism; Z82.49 Family history of ischemic heart disease and other diseases of the circulatory system; Z80.6 Family history of leukemia; Z79.899 Other long term (current) drug therapy; Z79.82 Long term (current) use of aspirin; Z95.820 Peripheral vascular angioplasty status with implants and grafts; Z79.01 Long term (current) use of anticoagulants; Z95.5 Presence of coronary angioplasty implant and graft
CPT/HCPCS: 36415; 43239; 45378; 80053; 82272; 82728; 83540; 83550; 83605; 83735; 85025; 85610; 85730; 86850; 86900; 86901; 87635; 88305; 96374; 99285

== ENCOUNTER 2021-09-07 15:17 | Inpatient (IN) | payer MEDICARE, BC ==
[2021-09-07 15:35] LABS: Glucose,Whole Blood 103 mg/dL (75-99)
--- NOTE | 2021-09-07 15:42 | ED ---
General Adult HPI - General Chief complaint: Fall Stated complaint: Fall Time Seen by Provider: 09/07/21 15:20 Source: patient, EMS Mode of arrival: EMS Limitations: no limitations - History of Present Illness Initial comments: Dictation was produced using [employer] dictation software. please excuse any grammatical, word or spelling errors. Chief Complaint: 81-year-old female on eliquis presents emergency department with ankle pain History of Present Illness: Patient is an 81-year-old female she is on anticoagulation for DVT prophylaxis. She was cleaning the steps to her house when her foot got caught. She fell to the ground. Denies any loss of consciousness. Denies any head injury or neck pain. She fell to the ground and immediately noticed left ankle pain. EMS was called patient brought to the emergency department. She had gross abnormalities the left ankle. Patient has no other complaints at this time. The ROS documented in this emergency department record has been reviewed and confirmed by me. Those systems with pertinent positive or negative responses have been documented in the HPI. All other systems are other negative and/or noncontributory. PHYSICAL EXAM: General Impression: Alert and oriented x3, not in acute distress HEENT: Normocephalic atraumatic, extra-ocular movements intact, pupils equal and reactive to light bilaterally, mucous membranes moist. Cardiovascular: Heart regular rate and rhythm Chest: Able to complete full sentences, no retractions, no tachypnea Abdomen: abdomen soft, non-tender, non-distended, no organomegaly Musculoskeletal: Pulses present and equal in all extremities, no peripheral edema Left ankle: externally rotated grossly deformed, neurovascularly intact Motor: no focal deficits noted Neurological: CN II-XII grossly intact, no focal motor or sensory deficits noted Skin: Intact with no visualized rashes Psych: Normal affect and mood ED course: 81-year-old female presents to the emergency Department with left ankle injury. Patient is on anticoagulation medication she fell off a step. Patient's activated level II trauma. Vital signs upon arrival are within acceptable limits. Computed tomography scan had some C-spine shows no acute processes. Pelvis x- ray shows no acute processes. Chest x-ray is nonacute. Ankle x-ray shows acute displaced bimalleolar fracture with mortise disruption. Case was discussed with orthopedic surgeon, Dr. Galeano. She was air to perform the dislocation reduction and splint application. I performed procedural sedation using propofol. Please see procedural sedation note. Postreduction ankle x-ray shows post-splint placement improve anatomic alignment. Orthopedic surgery spoke with her foot and ankle specialist Dr. Bailey who requests the patient be admitted for surgical intervention likely tomorrow morning. Medicine was contacted for medical clearance. Spoke with Dr. Parsons who is on-call for Dr. Flores. - Related Data Home Medications Medication Instructions Recorded Confirmed Enalapril [Vasotec] 10 mg PO BID 07/09/14 05/01/21 Metoprolol Tartrate [Lopressor] 25 mg PO BID 07/09/14 05/01/21 PARoxetine [Paxil] 20 mg PO DAILY 04/06/15 05/01/21 Multivitamins, Thera [Multivitamin 1 tab PO DAILY 04/03/21 05/01/21 (formulary)] Peninsula-3 Fatty Acids/Fish Oil [Fish 1 cap PO DAILY 04/03/21 05/01/21 Oil 1,000 mg Softgel] Aspirin EC [Ecotrin] 325 mg PO DAILY 05/01/21 05/01/21 Potassium Gluconate [Potassium 99 mg PO Q48H 05/01/21 05/02/21 Gluconate ER] Previous Rx's Medication Instructions Recorded Apixaban [Eliquis] 2.5 mg PO BID #60 tab 05/04/21 Ferrous Sulfate [Feosol] 325 mg PO DAILY #30 tab 05/04/21 Pantoprazole [Protonix] 40 mg PO AC-BRKFST #30 tab 05/04/21 Allergies Allergy/AdvReac Type Severity Reaction Status Date / Time No Known Allergies Allergy Verified 09/07/21 15:30 Review of Systems ROS Statement: Those systems with pertinent positive or pertinent negative responses have been documented in the HPI. ROS Other: All systems not noted in ROS Statement are negative. Past Medical History Past Medical History: Coronary Artery Disease (CAD), Deep Vein Thrombosis (DVT), GERD/Reflux, GI Bleed, Hypertension Additional Past Medical History / Comment(s): DVT- From hip to ankle on 07/07; May Thurner syndrome, boderline hyperlipidemia-was taking anticholesterol meds but had sever leg cramps and stopped taking them History of Any Multi-Drug Resistant Organisms: None Reported Past Surgical History: Back Surgery, Cholecystectomy, Coronary Bypass/CABG, Joint Replacement, Orthopedic Surgery Additional Past Surgical History / Comment(s): L knee replacement followed by sepsis. CABG X2 in 2001. Past Anesthesia/Blood Transfusion Reactions: No Reported Reaction Past Psychological History: Depression Smoking Status: Former smoker Past Alcohol Use History: Rare Past Drug Use History: None Reported - Past Family History Father Family Medical History: Cancer Additional Family Medical History / Comment(s): Leukemia at 35 Mother Family Medical History: Myocardial Infarction (MA) Additional Family Medical History / Comment(s): Alcoholism General Exam Limitations: no limitations Course Vital Signs 09/07/21 09/07/21 09/07/21 15:18 16:07 16:15 Temperature 96.9 F L Pulse Rate 60 50 L 56 L Respiratory 20 16 16 Rate Blood Pressure 148/115 148/115 186/72 O2 Sat by Pulse 100 95 100 Oximetry 09/07/21 09/07/21 09/07/21 16:20 16:25 16:30 Temperature Pulse Rate 62 61 65 Respiratory 16 16 16 Rate Blood Pressure 114/79 126/65 97/66 O2 Sat by Pulse 100 98 97 Oximetry 09/07/21 16:45 Temperature Pulse Rate 59 L Respiratory 16 Rate Blood Pressure 157/99 O2 Sat by Pulse 95 Oximetry Procedures - Procedural Sedation Procedural Sedation Start Time: 16:15 Procedural Sedation Stop Time: 16:30 Indications: fracture/dislocation reduction ASA Class: II Mallampati Airway Score: 2 Preparation: bus monitor applied, pulse oximeter, supplemental O2 applied IV Propofol Dose (mgs): 125 Complications: none Patient Tolerated Procedure: well Medical Decision Making - Lab Data Result diagrams: 09/07/21 15:42 09/07/21 15:42 Lab Results 09/07/21 09/07/21 09/07/21 Range/Units 15:33 15:42 15:42 WBC 8.4 (3.8-10.6) k/uL RBC 5.25 (3.80-5.40) m/uL Hgb 16.1 H (11.4-16.0) gm/dL Hct 48.8 H (34.0-46.0) % MCV 93.1 (80.0-100.0) fL MCH 30.7 (25.0-35.0) pg MCHC 33.0 (31.0-37.0) g/dL RDW 14.3 (11.5-15.5) % Plt Count 223 (150-450) k/uL MPV 9.1 Neutrophils % 72 % Lymphocytes % 19 % Monocytes % 5 % Eosinophils % 1 % Basophils % 1 % Neutrophils # 6.1 (1.3-7.7) k/uL Lymphocytes # 1.6 (1.0-4.8) k/uL Monocytes # 0.4 (0-1.0) k/uL Eosinophils # 0.1 (0-0.7) k/uL Basophils # 0.1 (0-0.2) k/uL PT 10.7 (9.0-12.0) sec INR 1.0 (<1.2) APTT 22.4 (22.0-30.0) sec Sodium (137-145) mmol/L Potassium (3.5-5.1) mmol/L Chloride (98-107) mmol/L Carbon Dioxide (22-30) mmol/L Anion Gap mmol/L BUN (7-17) mg/dL Creatinine (0.52-1.04) mg/dL Est GFR (CKD-EPI)AfAm (>60 ml/min/1.73 sqM) Est GFR (CKD-EPI)NonAf (>60 ml/min/1.73 sqM) Glucose (74-99) mg/dL POC Glucose (mg/dL) 103 H (75-99) mg/dL POC Glu Supervisor Pipe Finishing ID Vanita Villagomez Calcium (8.4-10.2) mg/dL Total Bilirubin (0.2-1.3) mg/dL AST (14-36) U/L ALT (4-34) U/L Alkaline Phosphatase (38-126) U/L Troponin I (0.000-0.034) ng/mL Total Protein (6.3-8.2) g/dL Albumin (3.5-5.0) g/dL Serum Alcohol mg/dL Blood Type Blood Type Recheck Bld Type Recheck Status Antibody Screen Spec Expiration Date 09/07/21 09/07/21 09/07/21 Range/Units 15:42 15:42 15:42 WBC (3.8-10.6) k/uL RBC (3.80-5.40) m/uL Hgb (11.4-16.0) gm/dL Hct (34.0-46.0) % MCV (80.0-100.0) fL MCH (25.0-35.0) pg MCHC (31.0-37.0) g/dL RDW (11.5-15.5) % Plt Count (150-450) k/uL MPV Neutrophils % % Lymphocytes % % Monocytes % % Eosinophils % % Basophils % % Neutrophils # (1.3-7.7) k/uL Lymphocytes # (1.0-4.8) k/uL Monocytes # (0-1.0) k/uL Eosinophils # (0-0.7) k/uL Basophils # (0-0.2) k/uL PT (9.0-12.0) sec INR (<1.2) APTT (22.0-30.0) sec Sodium 138 (137-145) mmol/L Potassium 5.2 H (3.5-5.1) mmol/L Chloride 106 (98-107) mmol/L Carbon Dioxide 23 (22-30) mmol/L Anion Gap 9 mmol/L BUN 29 H (7-17) mg/dL Creatinine 1.18 H (0.52-1.04) mg/dL Est GFR (CKD-EPI)AfAm 49 (>60 ml/min/1.73 sqM) Est GFR (CKD-EPI)NonAf 43 (>60 ml/min/1.73 sqM) Glucose 110 H (74-99) mg/dL POC Glucose (mg/dL) (75-99) mg/dL POC Glu Supervisor Pipe Finishing ID Calcium 9.6 (8.4-10.2) mg/dL Total Bilirubin 0.9 (0.2-1.3) mg/dL AST 58 H (14-36) U/L ALT 33 (4-34) U/L Alkaline Phosphatase 66 (38-126) U/L Troponin I <0.012 (0.000-0.034) ng/mL Total Protein 7.8 (6.3-8.2) g/dL Albumin 4.5 (3.5-5.0) g/dL Serum Alcohol <10 mg/dL Blood Type B Positive Blood Type Recheck B Pos Bld Type Recheck Status No Antibody Screen NEGATIVE Spec Expiration Date 09/10/20212341 Disposition Clinical Impression: Ankle fracture Disposition: ADMITTED IP TO THIS HOSP Condition: Fair Referrals: Marcello Kaiser MD [Primary Care Provider] - 1-2 days
--- NOTE | 2021-09-07 15:50 | XR ---
EXAMINATION TYPE: XR ankle limited LT DATE OF EXAM: 09/07/2021 CLINICAL HISTORY: Pain after fall injury. TECHNIQUE: Frontal and lateral images of the left ankle are obtained. COMPARISON: None. FINDINGS: There is acute oblique intra-articular displaced fracture through the lateral malleolus. Di stal fracture fragment is impacted and laterally along with posteriorly displaced. There is acute displaced fracture through the medial malleolus with 2.0 cm fracture fragment. Ankle m ortise is disrupted as distal tibia is inferior and medial to the talar dome. Moderate to severe soft tissue swelling is seen. Incidental moderate to large sized calcaneal spurs. IMPRESSION: There is acute displaced bimalleolar fracture with mortise disruption.
[2021-09-07 15:51] LABS: Basophils # (A) 0.1 k/uL (0-0.2); Basophils % (A) 1 %; Eosinophils # (A) 0.1 k/uL (0-0.7); Eosinophils % (A) 1 %; HCT 48.8 % (34.0-46.0); HGB 16.1 gm/dL (11.4-16.0); Lymphocytes # (A) 1.6 k/uL (1.0-4.8); Lymphocytes % (A) 19 %; MCH 30.7 pg (25.0-35.0); MCV 93.1 fL (80.0-100.0); Mean Platelet Volume 9.1; Monocytes # (A) 0.4 k/uL (0-1.0); Monocytes % (A) 5 %; Neutrophils # (A) 6.1 k/uL (1.3-7.7); Neutrophils % (A) 72 %; Platelet Count 223 k/uL (150-450); RBC 5.25 m/uL (3.80-5.40); RDW 14.3 % (11.5-15.5); WBC 8.4 k/uL (3.8-10.6)
--- NOTE | 2021-09-07 15:52 | XR ---
EXAMINATION TYPE: XR pelvis AP view DATE OF EXAM: 09/07/2021 CLINICAL HISTORY: Fall injury with pain TECHNIQUE: A single AP view of the pelvis is obtained. COMPARISON: None. FINDINGS: There is no acute fracture/dislocation evident in the pelvis. [id number] axial joint space loss and acetabular spurring greater in the left hip. Pubic symphysis is intact. Sacroiliac j oints are preserved. Surgical changes L3-L4 level. Overlying left iliac stent graft noted. IMPRESSION: There is no acute fracture or dislocation in the pelvis.
[2021-09-07 15:56] LABS: ALT 33 U/L (4-34); AST 58 U/L (14-36); African American GFR (CKD) 49 (>60 ml/min/1.73 sqM); Albumin 4.5 g/dL (3.5-5.0); Alcohol <10 mg/dL; Alkaline Phosphatase 66 U/L (38-126); Anion Gap 9 mmol/L; Blood Urea Nitrogen 29 mg/dL (7-17); Calcium 9.6 mg/dL (8.4-10.2); Carbon Dioxide 23 mmol/L (22-30); Chloride 106 mmol/L (98-107); Glucose 110 mg/dL (74-99); Non-African American GFR(CKD) 43 (>60 ml/min/1.73 sqM); Sodium 138 mmol/L (137-145); Total Bilirubin 0.9 mg/dL (0.2-1.3); Total Protein 7.8 g/dL (6.3-8.2)
[2021-09-07 15:58] LABS: Partial Thromboplastin Time 22.4 sec (22.0-30.0); Prothrombin Time 10.7 sec (9.0-12.0)
[2021-09-07] MEDS ORDERED: MORPHINE SULFATE 4 MG/ML SYRINGE IVP STA (15:58)
[2021-09-07 15:59] LABS: Potassium 5.2 mmol/L (3.5-5.1)
[2021-09-07] MEDS ORDERED: SODIUM CHLORIDE 0.9% 1,000 ML IV STA (16:00)
--- NOTE | 2021-09-07 16:02 | XR ---
EXAMINATION TYPE: XR chest 1V DATE OF EXAM: 09/07/2021 COMPARISON: Chest x-ray 04/03/2021 HISTORY: Fall, trauma and pain TECHNIQUE: Single frontal view of the chest is obtained. FINDINGS: Patient is post median sternotomy. Heart appears enlarged. Lung volumes are low, patient i s rotated. There is elevation of the right hemidiaphragm. No evident pneumothorax or pleural effusion . There are overlying artifacts. IMPRESSION: Expiratory exam. No acute abnormality is evident. Enlargement of heart size could be shruthi hnical.
[2021-09-07] MEDS: PROPOFOL 10 MG/ML 20 ML VIAL IV ONE ×2 (16:05→16:15)
[2021-09-07] MEDS ORDERED: LIDOCAINE 1% INJ 10MG/ML (20 ML MDV) SQ ONE (16:12)
--- NOTE | 2021-09-07 16:18 | CT ---
EXAMINATION TYPE: CT brain cspine wo con DATE OF EXAM: 09/07/2021 COMPARISON: CT brain and cervical spine May 06, 2020 HISTORY: fall on thinners with headache and neck pain. CT DLP: 1440.9 mGycm. Automated Exposure Control for Dose Reduction was Utilized. TECHNIQUE: CT scan of the head and cervical spine are performed without contrast. FINDINGS: There is no acute intracranial hemorrhage or midline shift identified. Mild ventricular a nd sulcal prominence. Mild low attenuation in the periventricular white matter. The calvarium is inta ct. A possible stenosis from talus redemonstrated. The visualized portion of globes are intact and th e visualized sinuses are clear. Cervical spine is visualized in its entirety from C1 through upper thoracic levels and shows slight r eversal of normal cervical curvature centered at C4-C5 level without evidence of acute fracture or di slocation. Prevertebral soft tissue appears within normal limits. The C1-C2 articulation is within normal limits on the coronal images. Scoliotic curvature redemonstrated on the coronal images. Verte bral body heights are maintained. Moderate to severe disc space narrowing C4-C5 and C6-C7 levels with moderate spurring is redemonstrated. Posterior spur disc complexes efface the anterior thecal sac at these levels. Additional small posterior disc herniations efface the anterior thecal sac at the nahid dhiraj cervical levels. Review of axial images shows multilevel uncovertebral facet degenerative higgins es contributing to multilevel bilateral neural foraminal narrowing greatest at right C4-C5 level jordon lar to prior. There are hypodense bilateral thyroid nodules redemonstrated. Correlate clinically. Susannah g apices show no pneumothorax IMPRESSION: 1. There is no acute fracture or dislocation evident in the cervical spine. 2. No acute intracranial hemorrhage or midline shift is seen. No significant change from prior CT.
--- NOTE | 2021-09-07 16:54 | XR ---
EXAMINATION TYPE: XR ankle complete LT DATE OF EXAM: 09/07/2021 4:46 PM INDICATION: Patient age:Female; 81 years old; Reason for study: post reduction; COMPARISON: Radiograph same day TECHNIQUE: The left ankle is imaged in 3 projections. FINDINGS: Splint material is now in place attenuation. There is improved anatomic alignment. No gross evidence for new fracture. The visualized fixation hardware in the proximal tibia. IMPRESSION: Post splint placement with improved anatomic alignment.
[2021-09-07] MEDS ORDERED: NALOXONE 0.4 MG/ML 1 ML VIAL IV PRN (17:13)
[2021-09-07] MEDS ORDERED: ONDANSETRON 4 MG/2 ML VIAL IVP PRN (17:13)
--- NOTE | 2021-09-07 17:39 | CT ---
EXAMINATION TYPE: CT ankle LT wo con CT DLP: 493.7 mGycm, Automated exposure control for dose reduction was used. DATE OF EXAM: 09/07/2021 5:16 PM COMPARISON: Extremity radiograph same day. CLINICAL INDICATION:Female, 81 years old with history of left ankle fracture; , left ankle fracture p ost reduction TECHNIQUE: Axial images were obtained of the left ankle without the use of IV contrast. Additional c oronal and sagittal reformatted images and soft tissue and bone window were obtained for review. 3-D reconstruction was created on a separate workstation. FINDINGS: This redemonstration of distal left comminuted tibia and oblique fibula fractures as seen o n prior radiographs. There is approximately 8 mm displacement of the oblique fracture through the dis christen fibula with posterior displacement. The Ankle mortise remains displaced posteriorly with the tibia anterior to the talus. The posterior m alleolus is displaced approximately 23 mm. Splint material remains in place. No new fractures identif ied. There is streaky edema/blood products seen within subcutaneous tissues. Atherosclerosis of the arteri al vasculature is present. Calcaneal Achilles enthesophyte and plantar spurring is present. IMPRESSION: 1. Persistent distal tibia comminuted intra-articular fracture with posterior displacement and a subl uxed/displaced ankle mortise. 2. Left distal fibular fracture with posterior displacement.
[2021-09-07] MEDS: SODIUM CHLORIDE 0.9% 1,000 ML IV SCH (18:05)
--- NOTE | 2021-09-07 18:31 | P.HPOR ---
<CarrillojacintoEmely Carin - Last Filed: 09/07/21 18:48> History of Present Illness H&P Date: 09/07/21 Chief Complaint: Left ankle injury The patient is an 81 y/o female who presented to the emergency department at [facility] this afternoon via EMS after falling down a stair outside. She had a obvious deformity to the left ankle. She has a history of CAD with CABG x2 in 2001, DVT, left total knee with arthroplasty with infection in the past, hypertension, and GERD. Orthopedics was consulted for an ankle reduction in the ER. The patient does live with her disabled and has family near by. She does not use a walker or cane normally. The patient complains of left ankle pain. No other injuries at this time. She denies hitting her head. The patient is on Eliquis, which she took this morning. Review of Systems Constitutional: Denies chills, Denies fatigue, Denies fever Cardiovascular: Denies chest pain, Denies shortness of breath Respiratory: Denies cough Gastrointestinal: Denies diarrhea, Denies nausea, Denies vomiting Musculoskeletal: left: ankle pain, ankle stiffness, ankle swelling Past Medical History Past Medical History: Coronary Artery Disease (CAD), Deep Vein Thrombosis (DVT), GERD/Reflux, GI Bleed, Hypertension Additional Past Medical History / Comment(s): DVT- From hip to ankle on 07/07; May Thurner syndrome, boderline hyperlipidemia-was taking anticholesterol meds but had sever leg cramps and stopped taking them History of Any Multi-Drug Resistant Organisms: None Reported Past Surgical History: Back Surgery, Cholecystectomy, Coronary Bypass/CABG, Joint Replacement, Orthopedic Surgery Additional Past Surgical History / Comment(s): L knee replacement followed by sepsis. CABG X2 in 2001. Past Anesthesia/Blood Transfusion Reactions: No Reported Reaction Past Psychological History: Depression Smoking Status: Former smoker Past Alcohol Use History: Rare Past Drug Use History: None Reported - Past Family History Father Family Medical History: Cancer Additional Family Medical History / Comment(s): Leukemia at 35 Mother Family Medical History: Myocardial Infarction ([place]) Additional Family Medical History / Comment(s): Alcoholism Medications and Allergies Home Medications Medication Instructions Recorded Confirmed Type Enalapril [Vasotec] 10 mg PO BID 07/09/14 09/07/21 History Metoprolol Tartrate [Lopressor] 25 mg PO BID 07/09/14 09/07/21 History Multivitamins, Thera [Multivitamin 1 tab PO DAILY 04/03/21 09/07/21 History (formulary)] Potassium Gluconate [Potassium 99 mg PO Q48H 05/01/21 09/07/21 History Gluconate ER] Pantoprazole [Protonix] 40 mg PO AC-BRKFST #30 tab 05/04/21 09/07/21 Rx Apixaban [Eliquis] 5 mg PO BID 09/07/21 09/07/21 History HYDROcodone/APAP 10-325MG [[place] 1 tab PO BID PRN 09/07/21 09/07/21 History 10-325] PARoxetine HCL [Paxil] 30 mg PO DAILY 09/07/21 09/07/21 History Allergies Allergy/AdvReac Type Severity Reaction Status Date / Time No Known Allergies Allergy Verified 09/07/21 17:28 Physical Examination The patient is an 81 y/o female in no acute distress. She is alert and oriented x3. Her head is normocephalic, atraumatic. Exam of the left ankle reveals an obvious deformity and mild swelling. Pedal pulse 5/5. Normal sensation to the dorsal and plantar foot and toes. No left hip or knee pain at this time. No obvious deformity or injury to the right lower extremity. Results - Labs Labs: Abnormal Lab Results - Last 24 Hours (Table) 09/07/21 09/07/21 09/07/21 Range/Units 15:33 15:42 15:42 Hgb 16.1 H (11.4-16.0) gm/dL Hct 48.8 H (34.0-46.0) % Potassium 5.2 H (3.5-5.1) mmol/L BUN 29 H (7-17) mg/dL Creatinine 1.18 H (0.52-1.04) mg/dL Glucose 110 H (74-99) mg/dL POC Glucose (mg/dL) 103 H (75-99) mg/dL AST 58 H (14-36) U/L H & H 09/07/21 Range/Units 15:42 Hgb 16.1 H (11.4-16.0) gm/dL Hct 48.8 H (34.0-46.0) % Coagulation 09/07/21 Range/Units 15:42 INR 1.0 (<1.2) Result Diagrams: 09/07/21 15:42 09/07/21 15:42 - Diagnostic results Ankle/Foot x-ray: image reviewed (Three views of the left ankle reveal a trimalleolar fracture with significant displacement and mortise dislocation. ) Assessment and Plan (1) Displaced trimalleolar fracture of left ankle Current Visit: Yes Status: Acute Code(s): S82.852A - DISPLACED TRIMALLEOLAR FRACTURE OF LEFT LOWER LEG, INIT SNOMED Code(s): 357623905 (2) Essential hypertension Current Visit: No Status: Acute Code(s): I10 - ESSENTIAL (PRIMARY) HYPERTENSION SNOMED Code(s): 21424686 (3) History of DVT (deep vein thrombosis) Current Visit: No Status: Acute Code(s): Z86.718 - PERSONAL HISTORY OF OTHER VENOUS THROMBOSIS AND EMBOLISM SNOMED Code(s): 225403878 (4) Hx of senior care use of blood thinners Current Visit: No Status: Acute Code(s): Z92.29 - PERSONAL HISTORY OF OTHER DRUG THERAPY SNOMED Code(s): 505168219 Plan: The clinical and x-ray findings were discussed with the patient and her daughter. The patient was examined and the ankle was reduced by Dr. Galeano. She was sedated with propofol by Dr. Linn and 10 mL of 1% lidocaine and 10 mL of normal saline was injected into the ankle joint. A well-padded splint was applied to the ankle and the ankle was reduced. Neurovascular status is intact after splint application. Post-reduction x-rays revealed the fractures in a satisfactory position and the ankle mortise is near alignment. The case was discussed with our partner, Dr. Bailey, who will take the patient to the oper ating room tomorrow and will perform an ORIF of the left trimalleolar fracture. She will be NPO at midnight. An ankle CT has been ordered for surgical planning. Dr. Parsons was contacted in the ER for medical clearance tomorrow morning. Hold Eliquis at this time. The patient will elevate and the ice the ankle tonight. <Brenda Galeano - Last Filed: 09/10/21 13:13> Physical Examination Osteopathic Statement: *. No significant issues noted on an osteopathic structural exam other than those noted in the History and Physical/Consult. Results - Labs Labs: Abnormal Lab Results - Last 24 Hours (Table) 09/09/21 Range/Units 15:52 Sodium 136 L (137-145) mmol/L BUN 20 H (7-17) mg/dL Creatinine 1.15 H (0.52-1.04) mg/dL Glucose 119 H (74-99) mg/dL AST 111 H (14-36) U/L ALT 113 H (4-34) U/L Total Protein 5.7 L (6.3-8.2) g/dL Albumin 3.2 L (3.5-5.0) g/dL H & H 09/07/21 09/08/21 Range/Units 15:42 09:50 Hgb 16.1 H 14.2 (11.4-16.0) gm/dL Hct 48.8 H 46.4 H (34.0-46.0) % Coagulation 09/07/21 Range/Units 15:42 INR 1.0 (<1.2) Result Diagrams: 09/08/21 09:50 09/09/21 15:52 Assessment and Plan Plan: Seen with Emely. On presentation patient had a trimalleolar ankle fracture dislocation. She was neurovascularly intact distal to the injury. Intraarticular/hematoma block was performed once sedation was provided by EM physician followed by a closed reduction and splinting. Post reduction XR showed reduction of tibiotalar joint and improved alignment but it's difficult to assess the tibiotalar joint on the lateral given all the padding. We will get a CT. Initially, on speaking with the patient, we were going to aim to reduce/splint and send her home to follow up in the office to plan surgery. However, given the size of the posterior malleolar piece and inherent instability and her home situation, admission with urgent treatment would probably be best. Spoke with Dr. Bailey and the plan will be admission/clearance tonight and surgery tomorrow.
[2021-09-07] MEDS: MORPHINE SULFATE 4 MG/ML SYRINGE IV PRN (20:13)
[2021-09-08] MEDS: MORPHINE SULFATE 4 MG/ML SYRINGE IV PRN ×2 (00:12→09:47)
[2021-09-08 05:24] LABS: Appearance,Urine Clear (Clear); Bacteria,Urine Rare /hpf; Bilirubin,Urine Negative (Negative); Blood,Urine Negative (Negative); Color,Urine Yellow; Glucose,Urine (UA) Negative (Negative); Ketones,Urine Negative (Negative); Leukocyte Esterase,Urine Trace (Negative); Mucus,Urine Rare /hpf; Nitrite,Urine Negative (Negative); Protein,Urine Negative (Negative); Squamous Epithelial Cell,Urine <1 /hpf (0-4); Urobilinogen,Urine <2.0 mg/dL (<2.0); WBC,Urine 1 /hpf (0-5)
[2021-09-08 05:31] LABS: Amphetamine Screen,Urine Not Detected (NotDetected); Barbiturate Screen,Urine Not Detected (NotDetected); Benzodiazepines Screen,Urine Detected (NotDetected); Cocaine Screen,Urine Not Detected (NotDetected); Methadone Screen, Urine Not Detected (NotDetected); Opiate Screen,Urine Detected (NotDetected); Oxycodone Screen, Urine Not Detected (NotDetected); Phencyclidine Screen,Urine Not Detected (NotDetected); Tricyclic Antidepressant,Urine Not Detected (NotDetected); Urn Cannabinoid Scrn Not Detected (NotDetected)
[2021-09-08] MEDS: METOPROLOL TARTRATE 25 MG TAB PO SCH ×2 (09:47→20:06)
[2021-09-08] MEDS: PARoxetine 10 MG TAB PO SCH (09:47)
[2021-09-08] MEDS: SODIUM CHLORIDE 0.9% 1,000 ML IV SCH ×2 (09:48→20:11)
[2021-09-08 10:10] LABS: Basophils # (A) 0.1 k/uL (0-0.2); Basophils % (A) 1 %; Eosinophils # (A) 0.1 k/uL (0-0.7); Eosinophils % (A) 1 %; HCT 46.4 % (34.0-46.0); HGB 14.2 gm/dL (11.4-16.0); Hypochromasia Slight; Lymphocytes # (A) 1.2 k/uL (1.0-4.8); Lymphocytes % (A) 14 %; MCH 29.7 pg (25.0-35.0); MCHC 30.5 g/dL (31.0-37.0); MCV 97.2 fL (80.0-100.0); Mean Platelet Volume 7.9; Monocytes # (A) 0.4 k/uL (0-1.0); Monocytes % (A) 5 %; Neutrophils # (A) 6.6 k/uL (1.3-7.7); Neutrophils % (A) 78 %; Platelet Count 194 k/uL (150-450); RBC 4.78 m/uL (3.80-5.40); RDW 13.8 % (11.5-15.5); WBC 8.4 k/uL (3.8-10.6)
[2021-09-08 10:14] LABS: ALT 239 U/L (4-34); AST 396 U/L (14-36); African American GFR (CKD) 56 (>60 ml/min/1.73 sqM); Albumin 3.6 g/dL (3.5-5.0); Albumin/Globulin Ratio 1.3; Alkaline Phosphatase 85 U/L (38-126); Anion Gap 9 mmol/L; Blood Urea Nitrogen 21 mg/dL (7-17); Calcium 8.8 mg/dL (8.4-10.2); Carbon Dioxide 20 mmol/L (22-30); Chloride 108 mmol/L (98-107); Globulin 2.7 g/dL; Glucose 128 mg/dL (74-99); Non-African American GFR(CKD) 49 (>60 ml/min/1.73 sqM); Potassium 4.6 mmol/L (3.5-5.1); Sodium 137 mmol/L (137-145); Total Bilirubin 1.4 mg/dL (0.2-1.3); Total Protein 6.3 g/dL (6.3-8.2)
--- NOTE | 2021-09-08 11:59 | P.CRDCN ---
History of Present Illness History of present illness: HISTORY OF PRESENTING ILLNESS This is a pleasant 81-year-old female past medical history significant for paroxysmal atrial fibrillation on Eliquis, May-Thurner syndrome, peripheral vascular disease status post left femoral stenting, hypertension, history of DVT maintained on Eliquis and coronary artery disease status post bypass grafting 2003 (PRASAD to LAD, free radial artery graft to OM branch of circ). She follows in the office with Dr. Hopkins. We are consulted for cardiac clearance. 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 She states she was using her shovel to create a path for her to walk. Her left ankle got caught and she fell on her left side. She denies any chest pain, shortness of breath, lightheadedness, dizziness, syncope, loss of consciousness. She denies any symptoms of orthopnea or PND. She denies any palpitations, nausea, vomiting, cough, fever, chills. Ankle CT revealed persistent distal tibia fracture with posterior displacement, left distal fibular fracture with posterior displacement. Orthopedics has evaluated the patient and plan for ORIF of the left trimalleolar fracture today. DIAGNOSTICS Recent echocardiogram in the office 02/16/2021 revealed an EF of 55%, mild to moderate mitral regurgitation and mild aortic insufficiency Recent Lexiscan stress test in the office 02/16/2021 revealed normal MPI with normal ejection fraction and no evidence of reversible ischemia. EKG reveals sinus bradycardia, heart rate 52, PVCs, [id number] wave abnormalities Chest xray no acute cardiopulmonary process. CT Brain/cervical spine revealed no acute intracranial hemorrhage or midline shift. No stiff change from prior. No acute fracture or dislocation evident in the cervical spine. Laboratory reviewed, WBC 8.4, hemoglobin 14.2, platelets 194, sodium 137, potassium 4.6, BUN 21, serum creatinine 1.0, troponin negative 1, COVID-19 negative Current home medications include Eliquis 5 mg twice a day, metoprolol titrate 25 mg twice a day, enalapril 10 mg twice a day REVIEW OF SYSTEMS At the time of my exam: CONSTITUTIONAL: Denies fever or chills. CARDIOVASCULAR: Denies chest pain, shortness of breath, orthopnea, PND or palpitations. RESPIRATORY: Denies cough. GASTROINTESTINAL: Denies abdominal pain, diarrhea, constipation, nausea or vomiting. MUSCULOSKELETAL: Denies myalgias. NEUROLOGIC: Denies numbness, tingling, headacbe or weakness. ENDOCRINE: Denies fatigue, weight change, polydipsia or polyurina. GENITOURINARY: Denies burning, hematuria or urgency with micturation. HEMATOLOGIC: Denies history of anemia or bleeding. PHYSICAL EXAMINATION Blood pressure 136/80, heart rate 64, afebrile, saturations 92% on room air CONSTITUTIONAL: No apparent distress. HEENT: Head is normocephalic. Pupils are equal, round. Sclerae anicteric. Mucous membranes of the mouth are moist. No JVD. No carotid bruit. CHEST EXAMINATION: Lungs are clear to auscultation. No chest wall tenderness is noted on palpation or with deep breathing. HEART EXAMINATION: Regular rate and rhythm. S1, S2 heard. Systolic ejection murmur at apex ABDOMEN: Soft, nontender. Positive bowel sounds. EXTREMITIES: 2+ peripheral pulses, no lower extremity edema and no calf tenderness. NEUROLOGIC EXAMINATION: Patient is awake, alert and oriented x3. ASSESSMENT Acute displaced trimalleolar fracture of the left ankle Paroxysmal atrial fibrillation on Eliquis outpatient, held due to surgery May-Thurner syndrome Peripheral vascular disease status post left femoral stenting Hypertension History of DVT maintained on Eliquis Coronary artery disease status post bypass grafting 2003 (PRASAD to LAD, free radial artery graft to OM branch of circ) PLAN From a cardiology perspective, patient is at adequate risk for surgery. Patient is able to perform >4 METs levels of activity and does not have any acute cardiac conditions. There are no absolute contraindications to undergo surgery at this time. Patient is hemodynamically stable. Recommend restarting Eliquis once cleared to restart per orthopedic surgery. Continue home cardiac medications Nurse practitioner note has been reviewed by physician. Signing provider agrees with the documented findings, assessment, and plan of care. Past Medical History Past Medical History: Coronary Artery Disease (CAD), Deep Vein Thrombosis (DVT), GERD/Reflux, GI Bleed, Hypertension Additional Past Medical History / Comment(s): DVT- From hip to ankle on 07/07; May Thurner syndrome, boderline hyperlipidemia-was taking anticholesterol meds but had sever leg cramps and stopped taking them History of Any Multi-Drug Resistant Organisms: None Reported Past Surgical History: Back Surgery, Cholecystectomy, Coronary Bypass/CABG, Joint Replacement, Orthopedic Surgery Additional Past Surgical History / Comment(s): L knee replacement followed by sepsis. CABG X2 in 2001. Past Anesthesia/Blood Transfusion Reactions: No Reported Reaction Past Psychological History: Depression Smoking Status: Former smoker Past Alcohol Use History: Rare Past Drug Use History: None Reported - Past Family History Father Family Medical History: Cancer Additional Family Medical History / Comment(s): Leukemia at 35 Mother Family Medical History: Myocardial Infarction ([place]) Additional Family Medical History / Comment(s): Alcoholism Medications and Allergies Home Medications Medication Instructions Recorded Confirmed Type Enalapril [Vasotec] 10 mg PO BID 07/09/14 09/07/21 History Metoprolol Tartrate [Lopressor] 25 mg PO BID 07/09/14 09/07/21 History Multivitamins, Thera [Multivitamin 1 tab PO DAILY 04/03/21 09/07/21 History (formulary)] Potassium Gluconate [Potassium 99 mg PO Q48H 05/01/21 09/07/21 History Gluconate ER] Pantoprazole [Protonix] 40 mg PO AC-BRKFST #30 tab 05/04/21 09/07/21 Rx Apixaban [Eliquis] 5 mg PO BID 09/07/21 09/07/21 History HYDROcodone/APAP 10-325MG [[place] 1 tab PO BID PRN 09/07/21 09/07/21 History 10-325] PARoxetine HCL [Paxil] 30 mg PO DAILY 09/07/21 09/07/21 History Allergies Allergy/AdvReac Type Severity Reaction Status Date / Time No Known Allergies Allergy Verified 09/07/21 17:28 Physical Exam Vitals: Vital Signs Temp Pulse Pulse Resp BP BP Pulse Ox 09/08/21 03:56 98 F 64 16 136/80 92 L 09/07/21 20:00 97.9 F 53 L 16 130/67 94 L 09/07/21 19:41 97.6 F 57 L 16 164/79 09/07/21 18:30 55 L 18 167/91 95 09/07/21 18:00 55 L 18 167/82 96 09/07/21 17:30 59 L 18 158/99 98 09/07/21 17:15 59 L 18 137/98 98 09/07/21 16:45 59 L 16 157/99 95 09/07/21 16:30 65 16 97/66 97 09/07/21 16:25 61 16 126/65 98 09/07/21 16:20 62 16 114/79 100 09/07/21 16:15 56 L 16 186/72 100 09/07/21 16:07 50 L 16 148/115 95 09/07/21 15:18 96.9 F L 60 20 148/115 100 Intake and Output 09/07/21 09/08/21 09/08/21 22:59 06:59 14:59 Intake Total 900 Balance 900 Intake: Intake, IV Titration 900 Amount Sodium Chloride 0.9% 1, 900 000 ml @ 75 mls/hr IV . [id number] [facility] Rx#:[id number] Other: Voiding Method Bedpan # Voids 2 Weight 92.986 kg Results 09/08/21 09:50 09/08/21 09:50 Cardiac Enzymes 09/07/21 09/07/21 Range/Units 15:42 15:42 AST 58 H (14-36) U/L Troponin I <0.012 (0.000-0.034) ng/mL Coagulation 09/07/21 Range/Units 15:42 PT 10.7 (9.0-12.0) sec APTT 22.4 (22.0-30.0) sec CBC 09/07/21 Range/Units 15:42 WBC 8.4 (3.8-10.6) k/uL RBC 5.25 (3.80-5.40) m/uL Hgb 16.1 H (11.4-16.0) gm/dL Hct 48.8 H (34.0-46.0) % Plt Count 223 (150-450) k/uL Comprehensive Metabolic Panel 09/07/21 Range/Units 15:42 Sodium 138 (137-145) mmol/L Potassium 5.2 H (3.5-5.1) mmol/L Chloride 106 (98-107) mmol/L Carbon Dioxide 23 (22-30) mmol/L BUN 29 H (7-17) mg/dL Creatinine 1.18 H (0.52-1.04) mg/dL Glucose 110 H (74-99) mg/dL Calcium 9.6 (8.4-10.2) mg/dL AST 58 H (14-36) U/L ALT 33 (4-34) U/L Alkaline Phosphatase 66 (38-126) U/L Total Protein 7.8 (6.3-8.2) g/dL Albumin 4.5 (3.5-5.0) g/dL Current Medications Generic Name Dose Route Start Last Admin Trade Name Freq PRN Reason Stop Dose Admin Hydrocodone Bitart/Acetaminophen 1 each 09/08/21 08:59 Hydrocodone/Apap 10-325mg 1 Each Tab PO BID PRN Pain Sodium Chloride 1,000 mls @ 75 mls/hr 09/07/21 17:15 09/08/21 09:48 Saline 0.9% IV Not Given .[id number] [facility] Metoprolol Tartrate 25 mg 09/08/21 09:00 09/08/21 09:47 Metoprolol Tartrate 25 Mg Tab PO 25 mg BID RYLEE Administration Morphine Sulfate 4 mg 09/07/21 17:13 09/08/21 09:47 Morphine Sulfate 4 Mg/Ml Syringe IV 4 mg Q4HR PRN Administration Severe Pain Naloxone HCl 0.2 mg 09/07/21 17:13 Naloxone 0.4 Mg/Ml 1 Ml Vial IV Q2M PRN Opioid Reversal Ondansetron HCl 4 mg 09/07/21 17:13 Ondansetron 4 Mg/2 Ml Vial IVP Q8HR PRN Nausea And Vomiting Pantoprazole Sodium 40 mg 09/09/21 07:30 Pantoprazole 40 Mg Tablet PO AC-BRKFST [facility] Paroxetine HCl 30 mg 09/08/21 09:00 09/08/21 09:47 Paroxetine 10 Mg Tab PO 30 mg DAILY RYLEE Administration Intake and Output 09/07/21 09/08/21 09/08/21 22:59 06:59 14:59 Intake Total 900 Balance 900 Intake: Intake, IV Titration 900 Amount Sodium Chloride 0.9% 1, 900 000 ml @ 75 mls/hr IV . [id number] [facility] Rx#:[id number] Other: Voiding Method Bedpan # Voids 2 Weight 92.986 kg 09/07/21 15:42 09/07/21 15:42
--- NOTE | 2021-09-08 12:59 | P.CONS ---
History of Present Illness - Reason for Consult Consult date: 09/08/21 Medical management - History of Present Illness HISTORY OF PRESENT ILLNESS This is an 81-year-old female patient of Dr. Marcello Kaiser and Dr. REBEKAH Hopkins with past medical history of coronary artery disease status post CABG with PRASAD to LAD in 2003, paroxysmal atrial fibrillation on eliquis, hypertension, May- Thurner syndrome status post femoral vein stenting, hypertension, hyperlipidemia, DVT. Patient had a mechanical fall landing on her left side and found to have a distal tibial fracture with posterior displacement and a left distal fibula fracture with posterior displacement. Patient has been admitted under the care of orthopedics. Due to EKG with prolonged QT, cardiology consult requested to clear patient prior to surgery. Patient was found to be afebrile, heart rate in the 50s, blood pressure initially 148/115, pulse ox 100% on room air. Blood pressure this morning 136/80. Patient presented to [facility] emergency center for evaluation. She was found to be afebrile, heart rate in the 70s, blood pressure initially 80/60 and pulse ox 94% on room air. Repeat blood pressure was 127/85. CBC unremarkable with hemoglobin of 16.1. Potassium 5.2, BUN 29 creatinine 1.18. Blood sugar 110. AST 58. Troponin negative. Serum alcohol less than 10. Coronal virus PCR not detected. Urinalysis negative for infection. Urine drug screen positive for opiates and benzodiazepines. REVIEW OF SYSTEMS Constitutional: No fever, no chills, no night sweats. No weight change. No weakness, fatigue or lethargy. No daytime sleepiness. EENT: No headache. No blurred vision or double vision, no loss of vision. No loss of Hearing, no ringing in the ears, no dizziness. No nasal drainage or congestion. No epistaxis. No sore throat. Lungs: No shortness of breath, cough, no sputum production. No wheezing. Cardiovascular: No chest pain, no lower extremity edema. No palpitations. No paroxysmal nocturnal dyspnea. No orthopnea. No lightheadedness or dizziness. No syncopal episodes. Abdominal: No abdominal pain. No nausea, vomiting. No diarrhea. No constipation. No bloody or tarry stools.. No loss of appetite. Genitourinary: No dysuria, increased frequency, urgency. No urinary retention. Musculoskeletal: No myalgias. No muscle weakness, no gait dysfunction, no frequent falls. No back pain. No neck pain. Left ankle pain Integumentary: No wounds, no lesions. No rash or pruritus. No unusual bruising. No change in hair or nails. Neurologic: No aphasia. No facial droop. No change in mentation. No head injury. No headache. No paralysis. No paresthesia. Psychiatric: No depression. No anxiety. No mood swings. Endocrine: No abnormal blood sugars. No weight change. SOCIAL HISTORY Patient was a smoker for around 10 years of 1-2 cigarettes per day and quit 40- 50 years ago. She drinks wine occasionally. She is retired, and lives at home with her and she is a caregiver for her . FAMILY HISTORY Mother at age 67 from alcohol abuse with history of coronary artery disease. Father at age 33 from leukemia. Patient has 2 sisters 84 and 86 years old and still living with no major medical problems. Patient does not have any brothers. Patient has 4 children with no major medical problems. PHYSICAL EXAMINATION Gen: This is an 81-year-old female. Patient is resting in bed and appears to be comfortable and in no acute distress. HEENT: Head is atraumatic, normocephalic. Pupils equal, round. Sclerae is anicteric. NECK: Supple. No JVD. No lymphadenopathy. No thyromegaly. LUNGS: Clear to auscultation. No wheezes or rhonchi. No intercostal retractions. HEART: Regular rate and rhythm. No murmur. ABDOMEN: Soft. Bowel sounds are present. No masses. No abdominal tenderness. EXTREMITIES: No pedal edema. No calf tenderness. Large splint in place to the left lower extremity NEUROLOGICAL: Patient is awake, alert and oriented x3. Cranial nerves 2 through 12 are grossly intact. ASSESSMENT AND PLAN 1. Acute displaced trimalleolar fracture of left ankle. Patient admitted under the care of orthopedics who planned for surgical intervention today. Cardiology consult requested. 2. Paroxysmal atrial fibrillation. Eliquis 7 hold. Lopressor 25 mg twice daily has been resumed 3. History of coronary artery disease status post CABG, stable. No complaints of chest pain. 4. Hypertension. Continue Lopressor 25 mg twice daily, Vasotec 10 mg twice daily. 5. Hyperlipidemia. 6. History of DVT. Hold eliquis 7. History of May-Thurner syndrome status post femoral vein stenting. 8. GI prophylaxis. Protonix. 9. Recurrent depression. Continue Paxil 30 mg daily. 10. DVT prophylaxis. SCDs and ZOE rosee. Patient will be admitted to the hospital for a minimum of 2 night stay. DISCHARGE PLAN To be determined Impression and plan of care have been directed as dictated by the signing physician. Tootie Mccain nurse practitioner acting as scribe for signing physician. Past Medical History Past Medical History: Coronary Artery Disease (CAD), Deep Vein Thrombosis (DVT), GERD/Reflux, GI Bleed, Hypertension Additional Past Medical History / Comment(s): DVT- From hip to ankle on 07/07; May Thurner syndrome, boderline hyperlipidemia-was taking anticholesterol meds but had sever leg cramps and stopped taking them History of Any Multi-Drug Resistant Organisms: None Reported Past Surgical History: Back Surgery, Cholecystectomy, Coronary Bypass/CABG, Joint Replacement, Orthopedic Surgery Additional Past Surgical History / Comment(s): L knee replacement followed by sepsis. CABG X2 in 2001. Past Anesthesia/Blood Transfusion Reactions: No Reported Reaction Past Psychological History: Depression Smoking Status: Former smoker Past Alcohol Use History: Rare Past Drug Use History: None Reported - Past Family History Father Family Medical History: Cancer Additional Family Medical History / Comment(s): Leukemia at 35 Mother Family Medical History: Myocardial Infarction ([place]) Additional Family Medical History / Comment(s): Alcoholism Medications and Allergies Home Medications Medication Instructions Recorded Confirmed Type Enalapril [Vasotec] 10 mg PO BID 07/09/14 09/07/21 History Metoprolol Tartrate [Lopressor] 25 mg PO BID 07/09/14 09/07/21 History Multivitamins, Thera [Multivitamin 1 tab PO DAILY 04/03/21 09/07/21 History (formulary)] Potassium Gluconate [Potassium 99 mg PO Q48H 05/01/21 09/07/21 History Gluconate ER] Pantoprazole [Protonix] 40 mg PO AC-BRKFST #30 tab 05/04/21 09/07/21 Rx Apixaban [Eliquis] 5 mg PO BID 09/07/21 09/07/21 History HYDROcodone/APAP 10-325MG [[place] 1 tab PO BID PRN 09/07/21 09/07/21 History 10-325] PARoxetine HCL [Paxil] 30 mg PO DAILY 09/07/21 09/07/21 History Allergies Allergy/AdvReac Type Severity Reaction Status Date / Time No Known Allergies Allergy Verified 09/07/21 17:28 Physical Exam Vitals: Vital Signs Temp Pulse Pulse Resp BP BP Pulse Ox 09/08/21 03:56 98 F 64 16 136/80 92 L 09/07/21 20:00 97.9 F 53 L 16 130/67 94 L 09/07/21 19:41 97.6 F 57 L 16 164/79 09/07/21 18:30 55 L 18 167/91 95 09/07/21 18:00 55 L 18 167/82 96 09/07/21 17:30 59 L 18 158/99 98 09/07/21 17:15 59 L 18 137/98 98 09/07/21 16:45 59 L 16 157/99 95 09/07/21 16:30 65 16 97/66 97 09/07/21 16:25 61 16 126/65 98 09/07/21 16:20 62 16 114/79 100 09/07/21 16:15 56 L 16 186/72 100 09/07/21 16:07 50 L 16 148/115 95 09/07/21 15:18 96.9 F L 60 20 148/115 100 Intake and Output 09/07/21 09/08/21 09/08/21 22:59 06:59 14:59 Intake Total 900 Balance 900 Intake: Intake, IV Titration 900 Amount Sodium Chloride 0.9% 1, 900 000 ml @ 75 mls/hr IV . [id number] [facility] Rx#:[id number] Other: Voiding Method Bedpan # Voids 2 Weight 92.986 kg Results CBC & Chem 7: 09/08/21 09:50 09/08/21 09:50 Labs: Abnormal Lab Results - Last 24 Hours (Table) 09/07/21 09/07/21 09/07/21 Range/Units 15:33 15:42 15:42 Hgb 16.1 H (11.4-16.0) gm/dL Hct 48.8 H (34.0-46.0) % Potassium 5.2 H (3.5-5.1) mmol/L BUN 29 H (7-17) mg/dL Creatinine 1.18 H (0.52-1.04) mg/dL Glucose 110 H (74-99) mg/dL POC Glucose (mg/dL) 103 H (75-99) mg/dL AST 58 H (14-36) U/L Ur Leukocyte Esterase (Negative) Urine Bacteria (None) /hpf Urine Mucus (None) /hpf Urine Opiates Screen (NotDetected) U Benzodiazepines Scrn (NotDetected) 09/07/21 Range/Units 23:39 Hgb (11.4-16.0) gm/dL Hct (34.0-46.0) % Potassium (3.5-5.1) mmol/L BUN (7-17) mg/dL Creatinine (0.52-1.04) mg/dL Glucose (74-99) mg/dL POC Glucose (mg/dL) (75-99) mg/dL AST (14-36) U/L Ur Leukocyte Esterase Trace H (Negative) Urine Bacteria Rare H (None) /hpf Urine Mucus Rare H (None) /hpf Urine Opiates Screen Detected H (NotDetected) U Benzodiazepines Scrn Detected H (NotDetected)
[2021-09-08] MEDS ORDERED: LACTATED RINGERS 1,000 ML IV ONE (15:09)
--- NOTE | 2021-09-08 17:41 | XR ---
EXAMINATION TYPE: XR ankle limited LT DATE OF EXAM: 09/08/2021 COMPARISON: NONE HISTORY: Ankle surgery TECHNIQUE: 2 fluoroscopic images were obtained. There was 35 seconds fluoroscopy time recorded. FINDINGS: 2 views show single bryan extending from the plantar anterior calcaneus into the distal tibia . There is large chip fracture of the posterior malleolus. There is extensive plantar and Achilles calc aneal spurring.
[2021-09-08] MEDS ORDERED: HYDROmorphone 1 MG/ML 1 ML SYRINGE IVP PRN ×3 (17:43)
--- NOTE | 2021-09-08 17:55 | P.OP ---
Date of Procedure: 09/08/21 Preoperative Diagnosis: Left trimalleolar ankle fracture dislocation Postoperative Diagnosis: Same Procedure(s) Performed: Closed reduction and percutaneous pinning of left ankle trimalleolar fracture dislocation as part of a staged procedure Anesthesia: ROSALVA Surgeon: Pan Bailey Sap Hana Developer #1: Tj Griffith Estimated Blood Loss (ml): 10 IV fluids (ml): 600 Pathology: none sent Condition: stable Disposition: PACU Indications for Procedure: The patient is a very pleasant 81-year-old female who sustained a fall last night resulting in a left ankle fracture dislocation. She underwent closed reduction and application of a splint in the emergency department by my or in her Dr. Galeano. Due to concern for the patient being unable to care for herself she was admitted overnight. Computed tomography scan after the reduction showed persistent posterior dislocation of the talus out of the ankle mortise. I agreed to assume care for the patient. I met with the patient and her daughter to discuss closed reduction and temporary stabilization versus open reduction and internal fixation of the soft tissue was amenable to surgery. We are long discussion on the potential risks and benefits of surgery. These risks include but certainly not limited to risks from anesthesia, superficial infection, deep infection, delayed wound healing, damage to local blood vessels or nerves, nonunion, malunion, broken hardware, loss of reduction, need for further surgery, DVT, PE, other medical complications, and possibly loss of life or limb. The patient and her daughter gave both verbal and written consent to go forward with surgery. Operative Findings: There is diffuse tense swelling and serous filled fracture blisters throughout the ankle. The soft tissue envelope was not amenable to open reduction and internal fixation. The trimalleolar ankle fracture was grossly unstable. There is a long stemmed revision knee component so rather than placing an external fixator with Steinmann pins in the tibia I elected to place a 5 mm retrograde Steinmann pin through the anterior process of the calcaneus across the talus and into the distal tibia. Description of Procedure: The patient was identified in preoperative holding and the correct left leg was marked with my initials. I reviewed the consent form with the patient and her daughter. All of their questions were answered. The patient was then brought back to the operating room. She was given a general anesthetic and preoperative antibiotics by anesthesia. Her splint was taken down. On inspection of the lef t ankle there was diffuse intense swelling with no wrinkling of the skin and serous filled fracture blisters throughout the ankle. The decision was made to abort open reduction internal fixation and proceed with temporary fixation and application of a splint. The left leg was prepped and draped in standard sterile fashion. Prior to starting surgery timeout was performed identifying the correct patient, operative extremity, and procedure. A closed reduction of the ankle was performed and verified with orthogonal views using fluoroscopy. A stab incision was made plantarly under the anterior process of the calcaneus and a 5 mm Steinmann pin was drilled retrograde through the anterior process of the calcaneus, up to the talus, and into the distal tibia. Orthogonal fluoroscopic images showed anatomic reduction of the ankle mortise. The Steinmann pin was left 1 mm proud distally. Final fluoroscopic images were taken. A Betadine soaked sponge was cut and placed around the distal tip of the Steinmann pin. The serous filled fracture blisters were unroofed and a Silvadene dressing was applied. A very well-padded bulky [place] splint was then placed with the ankle in neutral. The patient was then awoken from her anesthetic, transferred to a [place], and brought to recovery having tolerated procedure well. Plan: The patient will need definitive fixation of her ankle fracture at a later date. She is to remain strictly nonweightbearing on her left ankle. We will treat her with Bactrim due to her open pin site. We will plan on definitive surgery once her swelling subsides. She will likely need rehab or long term due to her noncompliance and need to remain strictly nonweightbearing on her left leg.
[2021-09-08] MEDS ORDERED: HYDROmorphone 0.5 MG/0.5 ML SYRINGE IVP ONE (18:10)
[2021-09-08] MEDS: lisinopriL 20 MG TAB PO SCH (20:06)
--- NOTE | 2021-09-09 06:21 | FL ---
EXAMINATION TYPE: FL guidance operating room DATE OF EXAM: 09/08/2021 CLINICAL HISTORY: Left ankle fracture. TECHNIQUE: Fluoroscopy. COMPARISON: Left ankle x-ray from one day earlier. FINDINGS: Fluoroscopic guidance was provided during open reduction internal fixation procedure perfo rmed by Dr. Galeano. A total of 35 seconds of fluoroscopic time was utilized during the procedure and 2 spot intraoperative images are acquired. IMPRESSION: As Above.
[2021-09-09] MEDS: PANTOPRAZOLE 40 MG TABLET PO SCH (08:50)
[2021-09-09] MEDS: lisinopriL 20 MG TAB PO SCH ×2 (08:50→20:15)
[2021-09-09] MEDS: METOPROLOL TARTRATE 25 MG TAB PO SCH ×2 (08:50→20:15)
[2021-09-09] MEDS: PARoxetine 10 MG TAB PO SCH (08:50)
--- NOTE | 2021-09-09 10:41 | P.PN ---
Subjective Progress Note Date: 09/09/21 This is an 81-year-old female who is status post closed reduction and percutaneous pinning of left ankle trimalleolar fracture dislocation as part of a staged procedure. This is postoperative day #1 and patient is seen and evaluated at bedside today. Patient states that her pain is well-controlled and she denies any new complaints today. Objective - Vital Signs Vital signs: Vital Signs Temp 98.1 F 09/09/21 04:11 Pulse 60 09/09/21 04:11 Resp 18 09/09/21 04:11 BP 127/71 09/09/21 04:11 Pulse Ox 97 09/09/21 04:11 Intake & Output 09/08/21 09/09/21 09/09/21 18:59 06:59 18:59 Intake Total 1350 1310 Output Total 305 Balance 1045 1310 Weight 92.986 kg 92.986 kg Intake: IV 750 Intake, IV Titration 600 950 Amount Sodium Chloride 0.9% 1, 600 900 000 ml @ 75 mls/hr IV . [id number] [facility] Rx#:[id number] ceFAZolin 2 gm In Sodium 50 Chloride 0.9% 50 ml @ 100 mls/hr IVPB Q8HR [facility] Rx# :[id number] Oral 360 Output: Urine 300 Estimated Blood Loss 5 Other: Voiding Method Bedpan Bedpan # Voids 1 1 - Exam Vital signs are stable. Patient is in no acute distress and is alert and oriented 3. Splint is clean, dry and intact. Capillary refill is normal at less than 2 seconds. Patient is able to move the toes of the left foot. Sensation intact. Neurovascular status and circulatory status are intact. - Labs CBC & Chem 7: 09/08/21 09:50 09/08/21 09:50 Assessment and Plan Assessment: Status post closed reduction and percutaneous pinning of left ankle trimalleolar fracture dislocation as part of a staged procedure. (1) Displaced trimalleolar fracture of left ankle Current Visit: Yes Status: Acute Code(s): S82.852A - DISPLACED TRIMALLEOLAR FRACTURE OF LEFT LOWER LEG, INIT SNOMED Code(s): 898120746 Plan: 1. Patient is to be nonweightbearing to the left lower extremity. 2. Maintain splint and elevate left lower extremity for swelling. 3. Continue routine postoperative care and pain control. 4. Dr. Bailey is planning to take the patient back to the operating room on Saturday.
[2021-09-09] MEDS: SODIUM CHLORIDE 0.9% 1,000 ML IV SCH (11:40)
--- NOTE | 2021-09-09 14:12 | P.PN ---
Subjective Progress Note Date: 09/09/21 This is a pleasant 81-year-old female past medical history significant for paroxysmal atrial fibrillation on Eliquis, May-Thurner syndrome, peripheral vascular disease status post left femoral stenting, hypertension, history of DVT maintained on Eliquis and coronary artery disease status post bypass grafting 2003 (PRASAD to LAD, free radial artery graft to OM branch of circ). She follows in the office with Dr. Hopkins. We were consulted for cardiac clearance. Patient states she was leaving the house to go hand picker her prescriptions. She states she was using her shovel to create a path for her to walk. Her left ankle got caught and she fell on her left side. She denies any chest pain, shortness of breath, lightheadedness, dizziness, syncope, loss of consciousness. She denies any symptoms of orthopnea or PND. She denies any palpitations, nausea, vomiting, cough, fever, chills. Ankle CT revealed persistent distal tibia fracture with posterior displacement, left distal fibular fracture with posterior displacement. She underwent closed reduction and percutaneous pinning of the left ankle trimalleolar fracture dislocation as part of a staged procedure. She will undergo further surgical intervention on Saturday. Objective - Vital Signs Vital signs: Vital Signs Temp 98.2 F 09/09/21 11:19 Pulse 63 09/09/21 11:19 Resp 18 09/09/21 11:19 BP 105/60 09/09/21 11:19 Pulse Ox 99 09/09/21 11:19 Intake & Output 09/08/21 09/09/21 09/09/21 18:59 06:59 18:59 Intake Total 1350 1310 Output Total 305 Balance 1045 1310 Weight 92.986 kg 92.986 kg Intake: IV 750 Intake, IV Titration 600 950 Amount Sodium Chloride 0.9% 1, 600 900 000 ml @ 75 mls/hr IV . [id number] [facility] Rx#:[id number] ceFAZolin 2 gm In Sodium 50 Chloride 0.9% 50 ml @ 100 mls/hr IVPB Q8HR [facility] Rx# :[id number] Oral 360 Output: Urine 300 Estimated Blood Loss 5 Other: Voiding Method Bedpan Bedpan # Voids 1 1 - Exam PHYSICAL EXAMINATION: HEENT: Head is atraumatic, normocephalic. Pupils equal, round. Neck is supple. There is no elevated jugular venous pressure. HEART EXAMINATION: Heart sounds regular, S1 and S2 normal. With a systolic murmur. CHEST EXAMINATION: Lungs are clear to auscultation and precussion. No chest wall tenderness is noted on palpation or with deep breathing. ABDOMEN: Soft, nontender. Bowel sounds are heard. No organomegaly noted. EXTREMITIES: Edema noted to left foot with dressing and Brennon wrap intact. NEUROLOGIC patient is awake, alert and oriented x3. . - Labs CBC & Chem 7: 09/08/21 09:50 09/08/21 09:50 Assessment and Plan Assessment: Acute displaced trimalleolar fracture of the left ankle Paroxysmal atrial fibrillation on Eliquis outpatient, held due to surgery May-Thurner syndrome Peripheral vascular disease status post left femoral stenting Hypertension History of DVT maintained on Eliquis Coronary artery disease status post bypass grafting 2003 (PRASAD to LAD, free radial artery graft to OM branch of circ) Plan: From cardiology's perspective medications were reviewed and will continue the same. Resume anticoagulation when okay by orthopedics. Continue other cardiac medications perioperatively. QUILL MACHINE TENDER note has been reviewed, I agree with a documented findings and plan of care. Patient was seen and examined.
--- NOTE | 2021-09-09 15:38 | P.PN ---
Subjective Progress Note Date: 09/09/21 HISTORY OF PRESENT ILLNESS This is an 81-year-old female patient of Dr. Marcello Kaiser and Dr. REBEKAH Hopkisn with past medical history of coronary artery disease status post CABG with PRASAD to LAD in 2003, paroxysmal atrial fibrillation on eliquis, hypertension, May- Thurner syndrome status post femoral vein stenting, hypertension, hyperlipidemia, DVT. Patient had a mechanical fall landing on her left side and found to have a distal tibial fracture with posterior displacement and a left distal fibula fracture with posterior displacement. Patient has been admitted under the care of orthopedics. Due to EKG with prolonged QT, cardiology consult requested to clear patient prior to surgery. Patient was found to be afebrile, heart rate in the 50s, blood pressure initially 148/115, pulse ox 100% on room air. Blood pressure this morning 136/80. Patient presented to [facility] emergency center for evaluation. She was found to be afebrile, heart rate in the 70s, blood pressure initially 80/60 and pulse ox 94% on room air. Repeat blood pressure was 127/85. CBC unremarkable with hemoglobin of 16.1. Potassium 5.2, BUN 29 creatinine 1.18. Blood sugar 110. AST 58. Troponin negative. Serum alcohol less than 10. Coronal virus PCR not detected. Urinalysis negative for infection. Urine drug screen positive for opiates and benzodiazepines. 2/ Patient examined at bedside, she underwent closed reduction and percutaneous pinning of left ankle trimalleolar fracture dislocation. Patient is doing well pain is controlled denies any chest pain shortness breath or palpitation. Vitals are stable currently requiring 3 L of oxygen saturating at 99% labs otherwise normal WBC 8.4 hemoglobin 14.2 potassium is normalized at 4.6 arm BUN 21 creatinine 1.08 total bilirubin of 1.4 and liver enzymes at elevated AST 396 ALT 239. Repeat CMP today REVIEW OF SYSTEMS Constitutional: No fever, no chills, no night sweats. No weight change. No weakness, fatigue or lethargy. No daytime sleepiness. EENT: No headache. No blurred vision or double vision, no loss of vision. No loss of Hearing, no ringing in the ears, no dizziness. No nasal drainage or congestion. No epistaxis. No sore throat. Lungs: No shortness of breath, cough, no sputum production. No wheezing. Cardiovascular: No chest pain, no lower extremity edema. No palpitations. No paroxysmal nocturnal dyspnea. No orthopnea. No lightheadedness or dizziness. No syncopal episodes. Abdominal: No abdominal pain. No nausea, vomiting. No diarrhea. No constipat ion. No bloody or tarry stools.. No loss of appetite. Genitourinary: No dysuria, increased frequency, urgency. No urinary retention. Musculoskeletal: No myalgias. No muscle weakness, no gait dysfunction, no frequent falls. No back pain. No neck pain. Left ankle pain better than yesterday Integumentary: No wounds, no lesions. No rash or pruritus. No unusual bruising. No change in hair or nails. Neurologic: No aphasia. No facial droop. No change in mentation. No head injury. No headache. No paralysis. No paresthesia. Psychiatric: No depression. No anxiety. No mood swings. Endocrine: No abnormal blood sugars. No weight change. PHYSICAL EXAMINATION Gen: This is an 81-year-old female. Patient is resting in bed and appears to be comfortable and in no acute distress. HEENT: Head is atraumatic, normocephalic. Pupils equal, round. Sclerae is anicteric. NECK: Supple. No JVD. No lymphadenopathy. No thyromegaly. LUNGS: Clear to auscultation. No wheezes or rhonchi. No intercostal retractions. HEART: Regular rate and rhythm. No murmur. ABDOMEN: Soft. Bowel sounds are present. No masses. No abdominal tenderness. EXTREMITIES: No pedal edema. No calf tenderness. Large splint in place to the left lower extremity able to move her toes. Sensation and circulation intact. Capillary refill less than 2 seconds NEUROLOGICAL: Patient is awake, alert and oriented x3. Cranial nerves 2 through 12 are grossly intact. ASSESSMENT AND PLAN 1. Acute displaced trimalleolar fracture of left ankle status post closed r eduction and percutaneous pinning of left ankle trimalleolar fracture dislocation. Patient to remain nonweightbearing to the left lower extremity with another intervention planned for Saturday. 2. Paroxysmal atrial fibrillation. Eliquis on hold. Lopressor 25 mg twice daily has been resumed 3. History of coronary artery disease status post CABG, stable. No complaints of chest pain. 4. Hypertension. Continue Lopressor 25 mg twice daily, Vasotec 10 mg twice daily. 5. Hyperlipidemia. 6. History of DVT. Hold eliquis 7. History of May-Thurner syndrome status post femoral vein stenting. 8. GI prophylaxis. Protonix. 9. Recurrent depression. Continue Paxil 30 mg daily. 10. DVT prophylaxis. SCDs and ZOE hose. Patient will be admitted to the hospital for a minimum of 2 night stay. DISCHARGE PLAN To be determined Objective - Vital Signs Vital signs: Vital Signs Temp 98.2 F 09/09/21 11:19 Pulse 63 09/09/21 11:19 Resp 18 09/09/21 11:19 BP 105/60 09/09/21 11:19 Pulse Ox 99 09/09/21 11:19 Intake & Output 09/08/21 09/09/21 09/09/21 18:59 06:59 18:59 Intake Total 1350 1310 Output Total 305 Balance 1045 1310 Weight 92.986 kg 92.986 kg Intake: IV 750 Intake, IV Titration 600 950 Amount Sodium Chloride 0.9% 1, 600 900 000 ml @ 75 mls/hr IV . [id number] [facility] Rx#:[id number] ceFAZolin 2 gm In Sodium 50 Chloride 0.9% 50 ml @ 100 mls/hr IVPB Q8HR [facility] Rx# :[id number] Oral 360 Output: Urine 300 Estimated Blood Loss 5 Other: Voiding Method Bedpan Bedpan # Voids 1 1 - Labs CBC & Chem 7: 09/08/21 09:50 09/08/21 09:50
[2021-09-09 16:37] LABS: ALT 113 U/L (4-34); AST 111 U/L (14-36); African American GFR (CKD) 51 (>60 ml/min/1.73 sqM); Albumin 3.2 g/dL (3.5-5.0); Albumin/Globulin Ratio 1.3; Alkaline Phosphatase 79 U/L (38-126); Anion Gap 7 mmol/L; Blood Urea Nitrogen 20 mg/dL (7-17); Calcium 8.5 mg/dL (8.4-10.2); Carbon Dioxide 24 mmol/L (22-30); Chloride 105 mmol/L (98-107); Globulin 2.5 g/dL; Glucose 119 mg/dL (74-99); Non-African American GFR(CKD) 44 (>60 ml/min/1.73 sqM); Potassium 4.5 mmol/L (3.5-5.1); Sodium 136 mmol/L (137-145); Total Bilirubin 0.8 mg/dL (0.2-1.3); Total Protein 5.7 g/dL (6.3-8.2)
[2021-09-09] MEDS: HYDROcodone/APAP 10-325MG 1 EACH TAB PO PRN (20:15)
[2021-09-10] MEDS: SODIUM CHLORIDE 0.9% 1,000 ML IV SCH ×2 (01:46→20:55)
--- NOTE | 2021-09-10 09:39 | P.PN ---
Subjective Progress Note Date: 09/10/21 This is an 81-year-old female who is status post closed reduction and percutaneous pinning of left ankle trimalleolar fracture dislocation as part of a staged procedure. This is postoperative day #2 and patient is seen and evaluated at bedside today. Patient states that her pain is well-controlled and she denies any new complaints today. Objective - Vital Signs Vital signs: Vital Signs Temp 97.8 F 09/10/21 03:59 Pulse 66 09/10/21 03:59 Resp 18 09/10/21 03:59 BP 105/61 09/10/21 03:59 Pulse Ox 99 09/10/21 03:59 Intake & Output 09/09/21 09/10/21 09/10/21 18:59 06:59 18:59 Intake Total 0 400 Balance 0 400 Intake: Intake, IV Titration 0 Amount Sodium Chloride 0.9% 1, 0 000 ml @ 75 mls/hr IV . [id number] [facility] Rx#:[id number] Oral 400 Other: Voiding Method Bedpan Toilet Bedpan # Voids 3 2 - Exam Vital signs are stable. Patient is in no acute distress and is alert and oriented 3. Splint is clean, dry and intact. Capillary refill is normal at less than 2 seconds. Patient is able to move the toes of the left foot. Sensation intact. Neurovascular status and circulatory status are intact. - Labs CBC & Chem 7: 09/08/21 09:50 09/09/21 15:52 Labs: Abnormal Lab Results - Last 24 Hours (Table) 09/09/21 Range/Units 15:52 Sodium 136 L (137-145) mmol/L BUN 20 H (7-17) mg/dL Creatinine 1.15 H (0.52-1.04) mg/dL Glucose 119 H (74-99) mg/dL AST 111 H (14-36) U/L ALT 113 H (4-34) U/L Total Protein 5.7 L (6.3-8.2) g/dL Albumin 3.2 L (3.5-5.0) g/dL Assessment and Plan Assessment: Status post closed reduction and percutaneous pinning of left ankle trimalleolar fracture dislocation as part of a staged procedure. (1) Displaced trimalleolar fracture of left ankle Current Visit: Yes Status: Acute Code(s): S82.852A - DISPLACED TRIMALLEOLAR FRACTURE OF LEFT LOWER LEG, INIT SNOMED Code(s): 378756194 Plan: 1. Patient is to be nonweightbearing to the left lower extremity. 2. Maintain splint and elevate left lower extremity for swelling. 3. Continue routine postoperative care and pain control. 4. Dr. Bailey is planning to take the patient back to the operating room on Saturday.
[2021-09-10] MEDS: METOPROLOL TARTRATE 25 MG TAB PO SCH ×2 (09:53→20:53)
[2021-09-10] MEDS: lisinopriL 20 MG TAB PO SCH ×2 (09:53→20:53)
[2021-09-10] MEDS: PARoxetine 10 MG TAB PO SCH (09:53)
[2021-09-10] MEDS: PANTOPRAZOLE 40 MG TABLET PO SCH (09:53)
--- NOTE | 2021-09-10 12:27 | P.PN ---
Subjective Progress Note Date: 09/10/21 This is a pleasant 81-year-old female past medical history significant for paroxysmal atrial fibrillation on Eliquis, May-Thurner syndrome, peripheral vascular disease status post left femoral stenting, hypertension, history of DVT maintained on Eliquis and coronary artery disease status post bypass grafting 2003 (PRASAD to LAD, free radial artery graft to OM branch of circ). She follows in the office with Dr. Hopkins. We were consulted for cardiac clearance. 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 She states she was using her shovel to create a path for her to walk. Her left ankle got caught and she fell on her left side. She denies any chest pain, shortness of breath, lightheadedness, dizziness, syncope, loss of consciousness. She denies any symptoms of orthopnea or PND. She denies any palpitations, nausea, vomiting, cough, fever, chills. Ankle CT revealed persistent distal tibia fracture with posterior displacement, left distal fibular fracture with posterior displacement. She underwent closed reduction and percutaneous pinning of the left ankle trimalleolar fracture dislocation as part of a staged procedure. She will undergo further surgical intervention on Saturday. 09/10/2021 The patient was seen and examined resting comfortably in bed. She's feeling well from a cardiac standpoint. Continues to have some pain in her left ankle with movement. She is anticipating returning to OR tomorrow Objective - Vital Signs Vital signs: Vital Signs Temp 97.8 F 09/10/21 03:59 Pulse 66 09/10/21 03:59 Resp 18 09/10/21 03:59 BP 105/61 09/10/21 03:59 Pulse Ox 99 09/10/21 03:59 Intake & Output 09/09/21 09/10/21 09/10/21 18:59 06:59 18:59 Intake Total 0 400 Balance 0 400 Intake: Intake, IV Titration 0 Amount Sodium Chloride 0.9% 1, 0 000 ml @ 75 mls/hr IV . [id number] [facility] Rx#:[id number] Oral 400 Other: Voiding Method Bedpan Toilet Bedpan # Voids 3 2 - Exam PHYSICAL EXAMINATION: HEENT: Head is atraumatic, normocephalic. Pupils equal, round. Neck is supple. There is no elevated jugular venous pressure. HEART EXAMINATION: Heart sounds regular, S1 and S2 normal. With a systolic murmur. CHEST EXAMINATION: Lungs are clear to auscultation and precussion. No chest wall tenderness is noted on palpation or with deep breathing. ABDOMEN: Soft, nontender. Bowel sounds are heard. No organomegaly noted. EXTREMITIES: Edema noted to left foot with dressing and Brennon wrap intact. NEUROLOGIC patient is awake, alert and oriented x3. . - Labs CBC & Chem 7: 09/08/21 09:50 09/09/21 15:52 Labs: Abnormal Lab Results - Last 24 Hours (Table) 09/09/21 Range/Units 15:52 Sodium 136 L (137-145) mmol/L BUN 20 H (7-17) mg/dL Creatinine 1.15 H (0.52-1.04) mg/dL Glucose 119 H (74-99) mg/dL AST 111 H (14-36) U/L ALT 113 H (4-34) U/L Total Protein 5.7 L (6.3-8.2) g/dL Albumin 3.2 L (3.5-5.0) g/dL Assessment and Plan Assessment: Acute displaced trimalleolar fracture of the left ankle Paroxysmal atrial fibrillation on EliGigit outpatient, held due to surgery May-Thurner syndrome Peripheral vascular disease status post left femoral stenting Hypertension History of DVT maintained on Eliquis Coronary artery disease status post bypass grafting 2003 (PRASAD to LAD, free radial artery graft to OM branch of circ) Plan: From cardiology's perspective medications were reviewed and will continue the same. Resume anticoagulation when okay by orthopedics. Continue other cardiac medications perioperatively. POLE SETTER note has been reviewed, I agree with a documented findings and plan of care. Patient was seen and examined.
--- NOTE | 2021-09-10 14:07 | XR ---
EXAMINATION TYPE: XR tibia fibula LT DATE OF EXAM: 09/10/2021 CLINICAL HISTORY: Known leg fracture. Evaluate tibia. TECHNIQUE: Two views of the left leg are obtained. COMPARISON: Recent intraoperative ankle x-rays from 2 days ago. FINDINGS: External Large fixating nail through the anterior calcaneus into the mid talus and through the tibial distal metadiaphysis is redemonstrated. There is also slight mildly displaced fracture of the posterior malleolus. There is redemonstrated intra-articular mildly displaced fracture of the lat eral malleolus. Metallic hardware from left knee surgery is identified terminating approximately 16 c m proximal to the fixating nail tip. Overlying gauze and/or bandage material ankle level is noted. IMPRESSION: As above.
--- NOTE | 2021-09-10 14:33 | P.PN ---
Subjective Progress Note Date: 09/10/21 HISTORY OF PRESENT ILLNESS This is an 81-year-old female patient of Dr. Marcello Kaiser and Dr. REBEKAH Hopkins with past medical history of coronary artery disease status post CABG with PRASAD to LAD in 2003, paroxysmal atrial fibrillation on eliquis, hypertension, May- Thurner syndrome status post femoral vein stenting, hypertension, hyperlipidemia, DVT. Patient had a mechanical fall landing on her left side and found to have a distal tibial fracture with posterior displacement and a left distal fibula fracture with posterior displacement. Patient has been admitted under the care of orthopedics. Due to EKG with prolonged QT, cardiology consult requested to clear patient prior to surgery. Patient was found to be afebrile, heart rate in the 50s, blood pressure initially 148/115, pulse ox 100% on room air. Blood pressure this morning 136/80. Patient presented to [facility] emergency center for evaluation. She was found to be afebrile, heart rate in the 70s, blood pressure initially 80/60 and pulse ox 94% on room air. Repeat blood pressure was 127/85. CBC unremarkable with hemoglobin of 16.1. Potassium 5.2, BUN 29 creatinine 1.18. Blood sugar 110. AST 58. Troponin negative. Serum alcohol less than 10. Coronal virus PCR not detected. Urinalysis negative for infection. Urine drug screen positive for opiates and benzodiazepines. 09/09 Patient examined at bedside, she underwent closed reduction and percutaneous pinning of left ankle trimalleolar fracture dislocation. Patient is doing well pain is controlled denies any chest pain shortness breath or palpitation. Vitals are stable currently requiring 3 L of oxygen saturating at 99% labs otherwise normal WBC 8.4 hemoglobin 14.2 potassium is normalized at 4.6 arm BUN 21 creatinine 1.08 total bilirubin of 1.4 and liver enzymes at elevated AST 396 ALT 239. Repeat CMP today 09/10 patient examined bedside appears comfortable in bed. She has not come out of bed mobility is limited with the ankle fracture. Patient is getting ankle x- ray today with plan to OR for fixation tomorrow. Vitals are stable. Hemoglobin stable at 14 creatinine 1.15 on 09/09 repeat labs today. Continue to hold anticoagulation for possible surgery tomorrow REVIEW OF SYSTEMS Constitutional: No fever, no chills, no night sweats. No weight higgins Appears tired No daytime sleepiness. EENT: No headache. No blurred vision or double vision, no loss of vision. No loss of Hearing, no ringing in the ears, no dizziness. No nasal drainage or congestion. No epistaxis. No sore throat. Lungs: No shortness of breath, cough, no sputum production. No wheezing. Cardiovascular: No chest pain, no lower extremity edema. No palpitations. No paroxysmal nocturnal dyspnea. No orthopnea. No lightheadedness or dizziness. No syncopal episodes. Abdominal: No abdominal pain. No nausea, vomiting. No diarrhea. No constipation. No bloody or tarry stools.. No loss of appetite. Genitourinary: No dysuria, increased frequency, urgency. No urinary retention. Musculoskeletal: No myalgias. No muscle weakness, no gait dysfunction, no frequent falls. No back pain. No neck pain. Left ankle pain better than yesterday Integumentary: No wounds, no lesions. No rash or pruritus. No unusual bruising. No change in hair or nails. Neurologic: No aphasia. No facial droop. No change in mentation. No head injury. No headache. No paralysis. No paresthesia. Psychiatric: No depression. No anxiety. No mood swings. Endocrine: No abnormal blood sugars. No weight change. PHYSICAL EXAMINATION Gen: This is an 81-year-old female. Patient is resting in bed and appears to be comfortable and in no acute distress. HEENT: Head is atraumatic, normocephalic. Pupils equal, round. Sclerae is anicteric. NECK: Supple. No JVD. No lymphadenopathy. No thyromegaly. LUNGS: Clear to auscultation. No wheezes or rhonchi. No intercostal retractions. HEART: Regular rate and rhythm. No murmur. ABDOMEN: Soft. Bowel sounds are present. No masses. No abdominal tenderness. EXTREMITIES: No pedal edema. No calf tenderness. Large splint in place to the left lower extremity able to move her toes. Sensation and circulation intact. Capillary refill less than 2 seconds NEUROLOGICAL: Patient is awake, alert and oriented x3. Cranial nerves 2 through 12 are grossly intact. ASSESSMENT AND PLAN 1. Acute displaced trimalleolar fracture of left ankle status post closed reduction and percutaneous pinning of left ankle trimalleolar fracture dislocation. Patient to remain nonweightbearing to the left lower extremity with another intervention planned for Saturday. continue fluids at 75 2. Paroxysmal atrial fibrillation. Eliquis on hold. Lopressor 25 mg twice daily has been resumed 3. History of coronary artery disease status post CABG, stable. No complaints of chest pain. 4. Hypertension. Continue Lopressor 25 mg twice daily, Vasotec 10 mg twice daily. 5. Hyperlipidemia. 6. History of DVT. Hold eliquis 7. History of May-Thurner syndrome status post femoral vein stenting. 8. GI prophylaxis. Protonix. 9. Recurrent depression. Continue Paxil 30 mg daily. 10. DVT prophylaxis. SCDs and ZOE hose. DISCHARGE PLAN To be determined Objective - Vital Signs Vital signs: Vital Signs Temp 97.9 F 09/10/21 11:14 Pulse 65 09/10/21 11:14 Resp 18 09/10/21 11:14 BP 118/82 09/10/21 11:14 Pulse Ox 99 09/10/21 11:14 Intake & Output 09/09/21 09/10/21 09/10/21 18:59 06:59 18:59 Intake Total 0 400 Balance 0 400 Intake: Intake, IV Titration 0 Amount Sodium Chloride 0.9% 1, 0 000 ml @ 75 mls/hr IV . [id number] [facility] Rx#:[id number] Oral 400 Other: Voiding Method Bedpan Toilet Bedpan # Voids 3 2 - Labs CBC & Chem 7: 09/08/21 09:50 09/09/21 15:52 Labs: Abnormal Lab Results - Last 24 Hours (Table) 09/09/21 Range/Units 15:52 Sodium 136 L (137-145) mmol/L BUN 20 H (7-17) mg/dL Creatinine 1.15 H (0.52-1.04) mg/dL Glucose 119 H (74-99) mg/dL AST 111 H (14-36) U/L ALT 113 H (4-34) U/L Total Protein 5.7 L (6.3-8.2) g/dL Albumin 3.2 L (3.5-5.0) g/dL
[2021-09-10 15:32] LABS: HCT 38.4 % (34.0-46.0); Hypochromasia Slight; MCH 30.2 pg (25.0-35.0); MCHC 31.3 g/dL (31.0-37.0); MCV 96.5 fL (80.0-100.0); Mean Platelet Volume 8.1; Platelet Count 168 k/uL (150-450); RBC 3.98 m/uL (3.80-5.40); RDW 14.4 % (11.5-15.5); WBC 8.1 k/uL (3.8-10.6)
[2021-09-10 15:46] LABS: African American GFR (CKD) 62 (>60 ml/min/1.73 sqM); Albumin 3.2 g/dL (3.5-5.0); Anion Gap 7 mmol/L; Blood Urea Nitrogen 23 mg/dL (7-17); Calcium 8.8 mg/dL (8.4-10.2); Carbon Dioxide 25 mmol/L (22-30); Chloride 106 mmol/L (98-107); Glucose 132 mg/dL (74-99); Non-African American GFR(CKD) 54 (>60 ml/min/1.73 sqM); Potassium 4.3 mmol/L (3.5-5.1); Sodium 138 mmol/L (137-145); Total Protein 5.7 g/dL (6.3-8.2)
[2021-09-10 15:47] LABS: ALT 68 U/L (4-34); AST 54 U/L (14-36); Albumin/Globulin Ratio 1.3; Alkaline Phosphatase 78 U/L (38-126); Globulin 2.5 g/dL; Total Bilirubin 0.6 mg/dL (0.2-1.3)
[2021-09-11] MEDS: lisinopriL 20 MG TAB PO SCH (09:05)
[2021-09-11] MEDS: PANTOPRAZOLE 40 MG TABLET PO SCH (09:05)
[2021-09-11] MEDS: METOPROLOL TARTRATE 25 MG TAB PO SCH (09:05)
[2021-09-11] MEDS: PARoxetine 10 MG TAB PO SCH (09:06)
--- NOTE | 2021-09-11 10:23 | P.PN ---
Subjective Progress Note Date: 09/11/21 HISTORY OF PRESENT ILLNESS: This is a pleasant 81-year-old female past medical history significant for paroxysmal atrial fibrillation on Eliquis, May-Thurner syndrome, peripheral vascular disease status post left femoral stenting, hypertension, history of DVT maintained on Eliquis and coronary artery disease status post bypass grafting 2003 (PRASAD to LAD, free radial artery graft to OM branch of circ). She follows in the office with Dr. Hopkins. We were consulted for cardiac clearance. 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 She states she was using her shovel to create a path for her to walk. Her left ankle got caught and she fell on her left side. She denies any chest pain, shortness of breath, lightheadedness, dizziness, syncope, loss of consciousness. She denies any symptoms of orthopnea or PND. She denies any palpitations, nausea, vomiting, cough, fever, chills. Ankle CT revealed persistent distal tibia fracture with posterior displacement, left distal fibular fracture with posterior displacement. She underwent closed reduction and percutaneous pinning of the left ankle trimalleolar fracture dislocation as part of a staged procedure. She will undergo further surgical intervention on Saturday. 09/10/2021 The patient was seen and examined resting comfortably in bed. She's feeling well from a cardiac standpoint. Continues to have some pain in her left ankle with movement. She is anticipating returning to OR tomorrow 09/11/2021 Patient examined this morning at the bedside. Patient denies chest pain or pressure. She denies shortness of breath. Patient Dimple remains on hold. She is currently nothing by mouth. Orthopedics is planning on surgical intervention today. It is noted that the patient underwent echocardiogram in February 2021 at the office revealing an ejection fraction 55%, [id number] mitral regurgitation and mild aortic insufficiency. Patient also had a Lexiscan stress test in February 2021 revealing normal MPI with normal ejection fraction no evidence of reversible ischemia. PHYSICAL EXAM: VITAL SIGNS: Reviewed. GENERAL: Well-developed in no acute distress. NECK: Supple. No JVD or thyromegaly LUNGS: Respirations even and unlabored. Lungs essentially clear to auscultation bilaterally. HEART: Regular rate and rhythm. S1 and S2 heard. Systolic murmur noted. EXTREMITIES: Dressing and CHARLEE wrap noted to left leg. No clubbing or cyanosis. Peripheral pulses intact. ASSESSMENT: Acute displaced trimalleolar fracture of the left ankle Paroxysmal atrial fibrillation on Eliquis outpatient, held due to surgery May-Thurner syndrome Peripheral vascular disease status post left femoral stenting Hypertension History of DVT maintained on Eliquis Coronary artery disease status post bypass grafting 2003 (PRASAD to LAD, free radial artery graft to OM branch of circ) PLAN: Continue current cardiac medications Orthopedics planning on surgical intervention today Resume Eliquis when okay with orthopedics Patient is currently stable from a cardiac standpoint Further recommendations pending patient course Nurse practitioner note has been reviewed by physician. Signing provider agrees with the documented findings, assessment, and plan of care. Objective - Vital Signs Vital signs: Vital Signs Temp 98.4 F 09/11/21 04:45 Pulse 65 09/11/21 04:45 Resp 20 09/11/21 04:45 BP 123/81 09/11/21 04:45 Pulse Ox 97 09/11/21 04:45 Intake & Output 09/10/21 09/11/21 09/11/21 18:59 06:59 18:59 Intake Total 480 Balance 480 Intake: Oral 480 Other: Voiding Method Toilet # Voids 2 1 - Labs CBC & Chem 7: 09/10/21 14:42 09/10/21 14:42 Labs: Abnormal Lab Results - Last 24 Hours (Table) 09/10/21 Range/Units 14:42 BUN 23 H (7-17) mg/dL Glucose 132 H (74-99) mg/dL AST 54 H (14-36) U/L ALT 68 H (4-34) U/L Total Protein 5.7 L (6.3-8.2) g/dL Albumin 3.2 L (3.5-5.0) g/dL
[2021-09-11] MEDS: HYDROcodone/APAP 10-325MG 1 EACH TAB PO PRN (12:40)
[2021-09-11 12:43] VITALS: BP 99/67; PULSE 62; RESP 17; TEMP 97.8
--- NOTE | 2021-09-11 14:14 | P.DS ---
Providers Date of admission: 09/09/21 11:56 Expected date of discharge: 09/11/21 Attending physician: Pan Bailey Consults: 09/07/21 17:16 Consult Physician Routine Consulting Provider: Ziyad Parsons Consult Reason/Comments: medical clearance Do you want consulting provider notified?: Yes 09/08/21 08:51 Consult Physician Routine Consulting Provider: Keith Myers Consult Reason/Comments: cardiac clearance Do you want consulting provider notified?: Yes Primary care physician: [facility] Course: This is an 81-year-old female who is admitted to [facility] on 09/07/21 after a ground-level fall and sustaining injury to the left ankle. X-rays in the emergency department revealed a left trimalleolar ankle fracture dislocation. She is admitted to our service for surgical intervention and care. Patient was taken to surgery on 09/08/21 for closed reduction and percutaneous pinning of the left ankle trimalleolar fracture dislocation as part of a staged procedure with Dr. Bailey. The procedure was performed without complication or sequelae. The patient is doing fairly well post-operatively. Vital signs and labs are stable on the day of discharge. Patient was examined bedside today. Patient splint remains intact. She states her pain is well controlled in the left ankle. She has no complaints or concerns today. Vital signs stable. On examination, the patient is sitting in bed in no apparent distress. She is alert and oriented 3. On inspection of the left lower extremity, there is a clean, dry, intact bulky [place] splint in place. The visible portion of the toes are warm and well perfused with brisk capillary refill. Patient is able to wiggle toes properly. Sensation is intact to light touch to the toes. Patient is discharged to rehab today. Internal medicine has cleared the patient for discharge today. Patient will follow-up with Dr. Bailey in the office in 1 week for soft tissue check and surgical planning. Please see med rec for accurate list of discharge medication. Patient was discharged on Bactrim DS for her pin site. Patient also takes Lisinopril. Per internal medicine, serum potassium will be monitored with CMP on and Saturday. Patient Condition at Discharge: Fair Plan - Discharge Summary New Discharge Prescriptions: New Sulfamethox-Tmp 800-160Mg [Bactrim DS 800-160 mg] 1 tab PO Q12HR 10 Days #20 tab HYDROcodone/APAP 5-325MG [Chula 5-325] 1 tab PO Q6HR PRN 7 Days #28 tab PRN Reason: Pain Continue Metoprolol Tartrate [Lopressor] 25 mg PO BID Enalapril [Vasotec] 10 mg PO BID PARoxetine HCL [Paxil] 30 mg PO DAILY HYDROcodone/APAP 10-325MG [Chula 10-325] 1 tab PO BID PRN PRN Reason: Pain Apixaban [Eliquis] 5 mg PO BID Multivitamins, Thera [Multivitamin (formulary)] 1 tab PO DAILY Pantoprazole [Protonix] 40 mg PO AC-BRKFST #30 tab Discontinued Potassium Gluconate [Potassium Gluconate ER] 99 mg PO Q48H Discharge Medication List Enalapril [Vasotec] 10 mg PO BID 07/09/14 [History] Metoprolol Tartrate [Lopressor] 25 mg PO BID 07/09/14 [History] Multivitamins, Thera [Multivitamin (formulary)] 1 tab PO DAILY 04/03/21 [History] Pantoprazole [Protonix] 40 mg PO AC-BRKFST #30 tab 05/04/21 [Rx] Apixaban [Eliquis] 5 mg PO BID 09/07/21 [History] HYDROcodone/APAP 10-325MG [Chula 10-325] 1 tab PO BID PRN 09/07/21 [History] PARoxetine HCL [Paxil] 30 mg PO DAILY 09/07/21 [History] HYDROcodone/APAP 5-325MG [Chula 5-325] 1 tab PO Q6HR PRN 7 Days #28 tab 09/11/21 [Rx] Sulfamethox-Tmp 800-160Mg [Bactrim DS 800-160 mg] 1 tab PO Q12HR 10 Days #20 tab 09/11/21 [Rx] Follow up Appointment(s)/Referral(s): Caitlin Zuñiga [NON-STAFF] - 1 Week Marcello Kaiser MD [Primary Care Provider] - 1 Week (after discharge from [facility]) Pan Bailey MD [Medical Doctor] - 09/18/21 Activity/Diet/Wound Care/Special Instructions: STRICT non-weight bearing left lower extremity. Keep splint intact. Keep left lower extremity elevated for swelling and pain control. Take antibiotics as prescribed. Take pain medications as needed. Follow-up in the office with Dr. Bailey on Saturday09/18/21. Call the office with any questions or concerns,
--- NOTE | 2021-09-11 14:18 | P.PN ---
Subjective Progress Note Date: 09/11/21 HISTORY OF PRESENT ILLNESS This is an 81-year-old female patient of Dr. Marcello Kaiser and Dr. REBEKAH Hopkins with past medical history of coronary artery disease status post CABG with PRASAD to LAD in 2003, paroxysmal atrial fibrillation on eliquis, hypertension, May- Thurner syndrome status post femoral vein stenting, hypertension, hyperlipidemia, DVT. Patient had a mechanical fall landing on her left side and found to have a distal tibial fracture with posterior displacement and a left distal fibula fracture with posterior displacement. Patient has been admitted under the care of orthopedics. Due to EKG with prolonged QT, cardiology consult requested to clear patient prior to surgery. Patient was found to be afebrile, heart rate in the 50s, blood pressure initially 148/115, pulse ox 100% on room air. Blood pressure this morning 136/80. Patient presented to [facility] emergency center for evaluation. She was found to be afebrile, heart rate in the 70s, blood pressure initially 80/60 and pulse ox 94% on room air. Repeat blood pressure was 127/85. CBC unremarkable with hemoglobin of 16.1. Potassium 5.2, BUN 29 creatinine 1.18. Blood sugar 110. AST 58. Troponin negative. Serum alcohol less than 10. Coronal virus PCR not detected. Urinalysis negative for infection. Urine drug screen positive for opiates and benzodiazepines. 09/09 Patient examined at bedside, she underwent closed reduction and percutaneous pinning of left ankle trimalleolar fracture dislocation. Patient is doing well pain is controlled denies any chest pain shortness breath or palpitation. Vitals are stable currently requiring 3 L of oxygen saturating at 99% labs otherwise normal WBC 8.4 hemoglobin 14.2 potassium is normalized at 4.6 arm BUN 21 creatinine 1.08 total bilirubin of 1.4 and liver enzymes at elevated AST 396 ALT 239. Repeat CMP today 09/10 patient examined bedside appears comfortable in bed. She has not come out of bed mobility is limited with the ankle fracture. Patient is getting ankle x- ray today with plan to OR for fixation tomorrow. Vitals are stable. Hemoglobin stable at 14 creatinine 1.15 on 09/09 repeat labs today. Continue to hold anticoagulation for possible surgery tomorrow. 09/11: Patient denies having any chest pain. She states she had some cough yesterday but none today. Orthopedics is planning for discharge today and patient has been accepted at [facility] for rehab. Orthopedics is planning on course of Bactrim at discharge and recommend CMP on and Saturday to monitor renal function and electrolytes. REVIEW OF SYSTEMS Constitutional: No fever, no chills, no night sweats. No weight higgins Appears tired No daytime sleepiness. EENT: No headache. No blurred vision or double vision, no loss of vision. No loss of Hearing, no ringing in the ears, no dizziness. No nasal drainage or congestion. No epistaxis. No sore throat. Lungs: No shortness of breath, cough resolved, no sputum production. No wheezing. Cardiovascular: No chest pain, no lower extremity edema. No palpitations. No paroxysmal nocturnal dyspnea. No orthopnea. No lightheadedness or dizziness. No syncopal episodes. Abdominal: No abdominal pain. No nausea, vomiting. No diarrhea. No constipation. No bloody or tarry stools.. No loss of appetite. Genitourinary: No dysuria, increased frequency, urgency. No urinary retention. Musculoskeletal: No myalgias. No muscle weakness, no gait dysfunction, no frequent falls. No back pain. No neck pain. Left ankle pain better than yesterday Integumentary: No wounds, no lesions. No rash or pruritus. No unusual bruising. No change in hair or nails. Neurologic: No aphasia. No facial droop. No change in mentation. No head injury. No headache. No paralysis. No paresthesia. Psychiatric: No depression. No anxiety. No mood swings. Endocrine: No abnormal blood sugars. No weight change. PHYSICAL EXAMINATION Gen: This is an 81-year-old female. Patient is resting in bed and appears to be comfortable and in no acute distress. HEENT: Head is atraumatic, normocephalic. Pupils equal, round. Sclerae is anict paul. NECK: Supple. No JVD. No lymphadenopathy. No thyromegaly. LUNGS: Clear to auscultation. No wheezes or rhonchi. No intercostal retractions. HEART: Regular rate and rhythm. No murmur. ABDOMEN: Soft. Bowel sounds are present. No masses. No abdominal tenderness. EXTREMITIES: No pedal edema. No calf tenderness. Large splint in place to the left lower extremity able to move her toes. Sensation and circulation intact. Capillary refill less than 2 seconds NEUROLOGICAL: Patient is awake, alert and oriented x3. Cranial nerves 2 through 12 are grossly intact. ASSESSMENT AND PLAN 1. Acute displaced trimalleolar fracture of left ankle status post closed reduction and percutaneous pinning of left ankle trimalleolar fracture dislocation 09/08. Patient to remain nonweightbearing to the left lower extremity and follow-up with orthopedics scheduled 09/18 2. Paroxysmal atrial fibrillation. Eliquis on hold. Lopressor 25 mg twice daily has been resumed, resume eliquis 3. History of coronary artery disease status post CABG, stable. No complaints of chest pain. 4. Hypertension. Continue Lopressor 25 mg twice daily, Vasotec 10 mg twice daily. 5. Hyperlipidemia. 6. History of DVT. Hold eliquis 7. History of May-Thurner syndrome status post femoral vein stenting. 8. GI prophylaxis. Protonix. 9. Recurrent depression. Continue Paxil 30 mg daily. 10. DVT prophylaxis. Eliquis. DISCHARGE PLAN Subacute rehab at [facility] Impression and plan of care have been directed as dictated by the signing physician. Tootie Mccain nurse practitioner acting as scribe for signing physician. Objective - Vital Signs Vital signs: Vital Signs Temp 98.4 F 09/11/21 04:45 Pulse 65 09/11/21 04:45 Resp 20 09/11/21 04:45 BP 123/81 09/11/21 04:45 Pulse Ox 97 09/11/21 04:45 Intake & Output 09/10/21 09/11/21 09/11/21 18:59 06:59 18:59 Intake Total 480 Balance 480 Intake: Oral 480 Other: Voiding Method Toilet # Voids 2 1 - Labs CBC & Chem 7: 09/10/21 14:42 09/10/21 14:42 Labs: Abnormal Lab Results - Last 24 Hours (Table) 09/10/21 Range/Units 14:42 BUN 23 H (7-17) mg/dL Glucose 132 H (74-99) mg/dL AST 54 H (14-36) U/L ALT 68 H (4-34) U/L Total Protein 5.7 L (6.3-8.2) g/dL Albumin 3.2 L (3.5-5.0) g/dL
== END 2021-09-11 16:20 | DRG 493 ==
LOC: EC 15:17 → 5NMEDONC 17:16 → OBSVTOIN 09-09 11:56
PROVIDERS: ADMIT Orthopaedic Surgery; ATTEND Orthopaedic Surgery
PROC: 0QSH34Z Reposition Left Tibia with Internal Fixation Device, Percutaneous Approach (ICD-10-PCS; principal; 2021-09-08 07:30)
DX: S82.852A Displaced trimalleolar fracture of left lower leg, initial encounter for closed fracture (principal); F33.9 Major depressive disorder, recurrent, unspecified; I87.1 Compression of vein; W10.8XXA Fall (on) (from) other stairs and steps, initial encounter; E78.5 Hyperlipidemia, unspecified; I10 Essential (primary) hypertension; I25.10 Atherosclerotic heart disease of native coronary artery without angina pectoris; I73.9 Peripheral vascular disease, unspecified; I48.0 Paroxysmal atrial fibrillation; I49.3 Ventricular premature depolarization; I08.0 Rheumatic disorders of both mitral and aortic valves; Z20.822 Contact with and (suspected) exposure to COVID-19; Z79.01 Long term (current) use of anticoagulants; Z79.82 Long term (current) use of aspirin; Z79.899 Other long term (current) drug therapy; Z80.6 Family history of leukemia; Z82.49 Family history of ischemic heart disease and other diseases of the circulatory system; Z86.718 Personal history of other venous thrombosis and embolism; Z87.891 Personal history of nicotine dependence; Z95.1 Presence of aortocoronary bypass graft; Z95.5 Presence of coronary angioplasty implant and graft; Z96.652 Presence of left artificial knee joint; Z81.1 Family history of alcohol abuse and dependence; Z87.19 Personal history of other diseases of the digestive system; Z98.890 Other specified postprocedural states; Z90.49 Acquired absence of other specified parts of digestive tract
CPT/HCPCS: 27810; 36415; 70450; 71045; 72125; 72170; 80053; 80306; 80320; 81001; 84484; 85025; 85027; 85610; 85730; 86850; 86900; 86901; 87635; 93005; 94660; 96361; 96374; 99152; 99285

== ENCOUNTER 2021-09-29 09:49 | Day surgery (SDC) | payer MEDICARE, BC ==
[2021-09-28 14:18] VITALS: BMI 33.4
[~2021-09-29 09:49] MED LIST: DEXAMETHASONE SOD PHOSPHATE 4 MG/ML 1 ML VIAL IV ONE; HYDROmorphone 0.5 MG/0.5 ML SYRINGE IVP PRN; LACTATED RINGERS 1,000 ML IV SCH; MIDAZOLAM 2 MG/2 ML VIAL IV PRN; ONDANSETRON 4 MG/2 ML VIAL IVP ONE
[2021-09-29] MEDS ORDERED: fentaNYL (PF) 50 MCG/ML 2 ML AMP IVP ONE ×2 (10:53)
[2021-09-29] MEDS ORDERED: MIDAZOLAM 2 MG/2 ML VIAL IV ONE (10:53)
--- NOTE | 2021-09-29 11:10 | P.ANPRN ---
Procedure Note - Anesthesia - Nerve Block Performed Left Adductor Canal Single Time Out Performed: Yes (1052) Date of Procedure: 09/29/21 Procedure Start Time: 10:59 Procedure Stop Time: 11:02 Location of Patient: PreOp Indication: Acute Post-Operative Pain, Requested by Surgeon Specifically requested for management of pain by DrShantal: Delmer Cleveland Sedation Type: Sedate with meaningful contact maintained Preparation: Sterile Prep Position: Supine Catheter: None Needle Types: Pajunk Needle Gauge: 21 Ultrasound used to visualize needle placement: Yes Ultrasound used to observe medication spread: Yes Injectate: 0.5% Ropivacaine (see comment for volume) (15cc + 15cc nacl pf) Blood Aspirated: No Pain Paresthesia on Injection Noted: No Resistance on Injection: Normal Image Stored and Saved: Yes Events: Uneventful and Well Tolerated
--- NOTE | 2021-09-29 11:10 | P.ANPRN ---
Procedure Note - Anesthesia - Nerve Block Performed Left Popliteal Single Time Out Performed: Yes (1052) Date of Procedure: 09/29/21 Procedure Start Time: 10:53 Procedure Stop Time: 10:58 Location of Patient: PreOp Indication: Acute Post-Operative Pain, Requested by Surgeon Specifically requested for management of pain by DrShantal: Delmer Cleveland Sedation Type: Sedate with meaningful contact maintained Preparation: Sterile Prep Position: Right Lateral Catheter: None Needle Types: Pajunk Needle Gauge: 21 Ultrasound used to visualize needle placement: No Ultrasound used to observe medication spread: No Injectate: 0.5% Ropivacaine (see comment for volume) (15cc + 15cc nacl pf) Blood Aspirated: No Pain Paresthesia on Injection Noted: No Resistance on Injection: Normal Image Stored and Saved: Yes Events: Uneventful and Well Tolerated
[2021-09-29] MEDS ORDERED: LIDOCAINE 1% INJ 10MG/ML (20 ML MDV) ONE (11:28)
[2021-09-29] MEDS ORDERED: PROPOFOL 10 MG/ML 20 ML VIAL IV ONE (11:28)
[2021-09-29] MEDS ORDERED: PHENYLEPHRINE-0.9% NACL SYG 1,000 MCG/10 ML SYRINGE ONE (11:28)
[2021-09-29] MEDS ORDERED: SUCCINYLCHOLINE CHLORIDE 100 MG/5 ML SYR IV ONE (11:28)
[2021-09-29] MEDS ORDERED: SODIUM CHLORIDE 0.9% (PF) 10 ML VIAL ONE (11:28)
[2021-09-29] MEDS ORDERED: hydrALAZINE HCL 20 MG/ML 1 ML VIAL ONE (11:28)
[2021-09-29] MEDS ORDERED: ROPIVACAINE 5 MG/ML 30 ML VIAL ONE (11:28)
[2021-09-29] MEDS ORDERED: ePHEDrine 50 MG/ML 1 ML VIAL ONE (11:28)
[2021-09-29] MEDS ORDERED: LACTATED RINGERS 1,000 ML IV ONE (13:12)
--- NOTE | 2021-09-29 13:20 | XR ---
EXAMINATION TYPE: XR ankle limited LT, FL guidance operating room DATE OF EXAM: 09/29/2021 COMPARISON: NONE HISTORY: Displaced trimalleolar fracture Fluoroscopy support supplied to the referring clinician. See dictated report from orthopedic surgery , 4 intraoperative C-arm images document the procedure, 2 minutes 34 seconds fluoroscopy time supplie d
[2021-09-29 13:34] VITALS: TEMP 97.2
--- NOTE | 2021-09-29 13:42 | P.OP ---
Date of Procedure: 09/29/21 Preoperative Diagnosis: 1. Displaced left trimalleolar ankle fracture Postoperative Diagnosis: Same Procedure(s) Performed: Open reduction with internal fixation of left trimalleolar ankle fracture Implants: Arthrex Fibulock nail with associated screws (4) 4.0 cannulated screws Anesthesia: JAMARA Surgeon: Delmer Cleveland Estimated Blood Loss (ml): 10 Pathology: none sent Condition: stable Disposition: PACU Description of Procedure: Prior to the patient being brought to the operating room anesthesia administered a nerve block and left lower extremity. The patient was then brought into the operating room and placed on table supine position. Timeout was taken to confirm correct patient identifiers, correct side of surgery, and correct procedure. When the room was in agreement with the timeout, the patient was induced and placed under general anesthesia. A well-padded tourniquet was placed the left thigh. The splint on the left leg was removed. And a wedge underneath the left hip to slightly internally rotate the left leg. The left leg was then prepped and draped usual manner. The leg was exsanguinated with an Esmarch bandage the knee slightly flexed and the tourniquet inflated to 250 motors mercury. A previous surgeon had inserted a large pin through the calcaneus across ankle joint into the tibia which allowed the ankle to remain reduce until definitive surgery. That wire was left in place while the fixation was placed Attention was first directed over the lateral ankle. Fluoroscopic imaging was used to identify the area of the fracture in the lateral malleolus. The incision was made directly over the fracture. The incision was deepened down directly to bone and the soft tissue reflected off of the lateral malleolus. An osteotome was inserted and the fracture line to free the soft tissue to allow for mobility for reduction. Reduction clamps were utilized to rotate and length of the fibula back out to length. Fluoroscopy confirmed the improved alignment of the fracture. Then a small stab incision was made distal to the tip of the lateral malleolus. A guidewire for the Arthrex tibial lock nail was placed at the tip of the lateral malleolus. Fluoroscopy was used to make sure that the pin entry was aligned both in AP and lateral views. The pin was slowly advanced to the fracture line. And then fluoroscopy was used again to make sure that the pin was traversing in the correct trajectory. The reamer was then placed oscillate and were able to advance the wire past the fracture line and into the shaft of the fibula. The overdrill was done next at the distal aspect lateral malleolus. The reamer/drill was then inserted and advanced to proper depth open the canal for the placement of the nail. The drill bits and guidewires were removed. A 130 mm x 3.0 mm fibular lock nail was placed on the insertion jig and inserted in the hole the distal tip of the fibula and advanced and impacted until it proper depth. The talons on the proximal aspect of the nail were then deployed. Drill guides were placed through the jig for the locking screws in the distal part of the nail. The area was drilled under fluoroscopic visualization to prevent penetration the lateral gutter. Then (2) 2.7 mm screws were placed through the nail until the heads engaged the lateral cortex of the fibula. Fluoroscopic imaging showed a stable construct of the fracture with proper placement of hardware. Then attention was directed to the medial malleolus where under fluoroscopic visualization guidewires for 4.0 cannulated screws were placed at the tip of the medial malleolus advanced in the tibia. AP and lateral views utilizing the fluoroscope showed that the screws did not penetrate the joint and were properly aligned. Drilling was taken just to the fracture line. Then 4.0 cannulated screws were inserted across the guidewires and advanced until engage in the cortex of the medial malleolus and compressing the fracture. Again fluoroscopic imaging showed proper placement of the screws in both the AP and lateral views. Then guidewires were used to identify the anterior lateral aspect of the tibia for the placement of the anterior to posterior screws for the posterior malleolar fracture. The guidewires were aligned both on AP and lateral views. Once her properly aligned they were advanced until just exiting the posterior cortex of the tibia. Overdrill was performed just of the fracture line and then 4.0 cannulated screws were placed over the wires and advanced until the heads engaged the anterior cortex of the tibia providing compression across the fracture. Final fluoroscopic imaging showed reduction of all the fractures with maintained alignment of the ankle joint as well as length of the lateral malleolus. The large guidewire that was on the plantar surface of the foot that maintain the reduction throughout the surgery was removed. All wounds were then thoroughly irrigated with antibiotic saline. Deep closure of the lateral incision was done with 0 Vicryl. All incisions were then closed with jayjay. An Arthrex jumpstart dressing was placed over all the incisions and covered with a bulky dry dressing. The tourniquet was released and capillary refill return to all digits on the left foot. Then the patient was placed in a well-padded, well molded plaster posterior mold/sugar tong splint. Ankle was held in neutral position until the splint dried. Then anesthesia was reversed and the patient was transferred to recovery with vital signs stable.
[2021-09-29 14:04] VITALS: RESP 16
[2021-09-29] MEDS ORDERED: HYDROcodone/APAP 10-325MG 1 EACH TAB ONE (14:55)
[2021-09-29] MEDS ORDERED: HYDROcodone/APAP 10-325MG 1 EACH TAB PO ONE (14:56)
[2021-09-29 15:21] VITALS: BP 135/63; PULSE 67
== END 2021-09-29 15:32 | disposition home or self-care (01) ==
LOC: OR 09:49
PROVIDERS: ATTEND Podiatrist
DX: S82.852A Displaced trimalleolar fracture of left lower leg, initial encounter for closed fracture (principal); W10.9XXA Fall (on) (from) unspecified stairs and steps, initial encounter; I48.91 Unspecified atrial fibrillation; I25.10 Atherosclerotic heart disease of native coronary artery without angina pectoris; I10 Essential (primary) hypertension; G47.33 Obstructive sleep apnea (adult) (pediatric); H91.90 Unspecified hearing loss, unspecified ear; R51.9 Headache, unspecified; K30 Functional dyspepsia; Z86.718 Personal history of other venous thrombosis and embolism; Z95.1 Presence of aortocoronary bypass graft; Z87.891 Personal history of nicotine dependence; Z79.01 Long term (current) use of anticoagulants; Z79.899 Other long term (current) drug therapy; Z88.8 Allergy status to other drugs, medicaments and biological substances; Z97.2 Presence of dental prosthetic device (complete) (partial); Z97.3 Presence of spectacles and contact lenses
CPT/HCPCS: 27823; 64447; 64445; 76942; 73600; C1713; J2250; J0360; J1100; J0690; J2405; J2001; J3010; J2795; J2370; J0330; J2704; J1170

== ENCOUNTER 2023-06-27 15:34 | Emergency (ER) | payer MEDICARE, BC ==
[2023-06-27] MEDS ORDERED: SODIUM CHLORIDE 0.9% 1,000 ML IV STA (15:36)
--- NOTE | 2023-06-27 15:45 | ED ---
Syncope HPI - General Chief Complaint: Syncope Stated Complaint: Syncope Time Seen by Provider: 06/27/23 15:35 Source: EMS, RN notes reviewed, old records reviewed, Caregiver Mode of arrival: EMS Limitations: no limitations - History of Present Illness Initial Comments: This is a 83-year-old female with history of heart disease coming in for evaluation by EMS. She presents to us for episode of unresponsiveness or decreased responsiveness while at dinner tonight. Patient is family didn't think she passed out. Unresponsive. But she did not loose tone or following ground. Patient suffers no complaints no headache chest pain shortness breath or abdominal pain. No recent change in medications she states she is up and feeling well otherwise MD Complaint: loss of consciousness, felt faint, almost passed out -: minutes(s) Prodromal Symptoms: none Description of Event: post-event confusion -: second(s) Witnessed: yes - by bystander Injuries Sustained Associated with Event: None Current Symptoms: lightheaded History: previous syncopal episode Context: at rest Treatments Prior to Arrival: none - Related Data Home Medications Medication Instructions Recorded Confirmed Enalapril [Vasotec] 10 mg PO BID 07/09/14 09/29/21 Metoprolol Tartrate [Lopressor] 25 mg PO BID 07/09/14 09/29/21 Apixaban [Eliquis] 5 mg PO BID 09/07/21 09/29/21 PARoxetine HCL [Paxil] 30 mg PO DAILY 09/07/21 09/29/21 HYDROcodone/APAP 5-325MG [[place] 2 tab PO BID PRN 09/28/21 09/29/21 5-325] Multivit-Min/Iron/Folic/Lutein 1 each PO DAILY 09/28/21 09/29/21 [Centrum Silver Women Tablet] Previous Rx's Medication Instructions Recorded Pantoprazole [Protonix] 40 mg PO AC-BRKFST #30 tab 05/04/21 HYDROcodone/APAP 5-325MG [[place] 1 tab PO Q6HR PRN #28 tab 09/29/21 5-325] Allergies Allergy/AdvReac Type Severity Reaction Status Date / Time CHOLESTEROL MEDS AdvReac Severe LEG CRAMPS Uncoded 09/29/21 10:07 Review of Systems ROS Statement: Those systems with pertinent positive or pertinent negative responses have been documented in the HPI. ROS Other: All systems not noted in ROS Statement are negative. Past Medical History Past Medical History: Atrial Fibrillation, Coronary Artery Disease (CAD), Deep Vein Thrombosis (DVT), GERD/Reflux, GI Bleed, Hypertension, Sleep Apnea/CPAP/BIPAP, Vascular Disorder Additional Past Medical History / Comment(s): STATES HX OF SEVERAL DVT'S & ONE FROM HIP TO ANKLE .,MAY THURNER SYNDROME., PVD., C-PAP MACHINE., FX LEFT ANKLE- HAS SPLINT AND NO WT BEARING. History of Any Multi-Drug Resistant Organisms: None Reported Past Surgical History: Back Surgery, Cholecystectomy, Coronary Bypass/CABG, Joint Replacement, Orthopedic Surgery Additional Past Surgical History / Comment(s): L knee replacement followed by sepsis. CABG X2 in 2001. , LEFT FEMORAL STENT ., CLOSED REDUCTION LEFT ANKLE FX 09/08/21 Past Anesthesia/Blood Transfusion Reactions: No Reported Reaction Past Psychological History: Depression Smoking Status: Former smoker Past Alcohol Use History: Rare Past Drug Use History: None Reported - Past Family History Father Family Medical History: Cancer Additional Family Medical History / Comment(s): Leukemia at 35 Mother Family Medical History: Myocardial Infarction ([place]) Additional Family Medical History / Comment(s): Alcoholism General Exam Limitations: no limitations General appearance: alert, in no apparent distress Head exam: Present: atraumatic, normocephalic, normal inspection Eye exam: Present: normal appearance, PERRL, EOMI. Absent: scleral icterus, conjunctival injection, periorbital swelling ENT exam: Present: normal exam, mucous membranes moist Neck exam: Present: normal inspection. Absent: tenderness, meningismus, lymphadenopathy Respiratory exam: Present: normal lung sounds bilaterally. Absent: respiratory distress, wheezes, rales, rhonchi, stridor Cardiovascular Exam: Present: regular rate, normal rhythm, normal heart sounds. Absent: systolic murmur, diastolic murmur, rubs, gallop, clicks GI/Abdominal exam: Present: soft, normal bowel sounds. Absent: distended, tenderness, guarding, rebound, rigid Extremities exam: Present: normal inspection, full ROM, normal capillary refill. Absent: tenderness, pedal edema, joint swelling, calf tenderness Back exam: Present: normal inspection Neurological exam: Present: alert, oriented X3, CN II-XII intact Psychiatric exam: Present: normal affect, normal mood Skin exam: Present: warm, dry, intact, normal color. Absent: rash Course Vital Signs 06/27/23 06/27/23 15:36 18:20 Temperature 97.7 F 98.7 F Pulse Rate 60 Respiratory 18 Rate Blood Pressure 134/82 O2 Sat by Pulse 97 Oximetry - Reevaluation(s) Reevaluation #1: Records reviewed Reevaluation #2: Patient feels improved No recurrent syncopal event here in the ER Reevaluation #3: Patient informed results questions answered Reevaluation #4: 06/27/23 15:45 Was pt. sent in by a medical professional or institution (, REBEKAH, CHIEF COUNSEL, urgent care, hospital, or fpc...) When possible be specific @ -no Did you speak to anyone other than the patient for history (EMS, parent, family, police, friend...)? What history was obtained from this source @ -no Did you review nursing and triage notes (agree or disagree)? Why? @ -agree Are old charts reviewed (outside hosp., previous admission, EMS record, old EKG, old radiological studies, urgent care reports/EKG's, fpc records)? Report findings @ -yes Differential Diagnosis (chest pain, altered mental status, abdominal pain women, abdominal pain men, vaginal bleeding, weakness, fever, dyspnea, syncope, headache, dizziness, GI bleed, back pain, seizure, CVA, palpatations, mental health, musculoskeletal)? @ -prior EKG interpreted by me (3pts min.). @ -yes X-rays interpreted by me (1pt min.). @ -no CT interpreted by me (1pt min.). @ -no U/S interpreted by me (1pt. min.). @ -no What testing was considered but not performed or refused? (CT, X-rays, U/S, labs)? Why? @ -none What meds were considered but not given or refused? Why? @ -none Did you discuss the management of the patient with other professionals (professionals i.e. REBEKAH Donnelly, CHIEF COUNSEL, lab, RT, psych nurse, social media community manager, cras, teacher, public records officer, assistant case manager)? Give summary @ -no Was smoking cessation discussed for >3mins.? @ -no Was critical care preformed (if so, how long)? @ -no Were there social determinants of health that impacted care today? How? (Homelessness, low income, unemployed, alcoholism, drug addiction, transportation, low edu. Level, literacy, decrease access to med. care, custodial, rehab)? @ -none Was there de-escalation of care discussed even if they declined (Discuss DNR or withdrawal of care, Hospice)? DNR status @ -no What co-morbidities impacted this encounter? (DM, HTN, Smoking, COPD, CAD, Cancer, CVA, ARF, Chemo, Hep., AIDS, mental health diagnosis, sleep apnea, morbid obesity)? @ -none Was patient admitted / discharged? Hospital course, mention meds given and route, prescriptions, significant lab abnormalities, going to OR and other pertinent info. @ - 83 female to the emergency department for evaluation of syncopal event. Patient was at Thanksgiving dinner today with family. Patient became unresponsive and did not hit the ground. At this point patient has no current complaints feels well and prefers discharged home Discharge Undiagnosed new problem with uncertain prognosis? @ -no Drug Therapy requiring intensive monitoring for toxicity (Heparin, Nitro, Insulin, Cardizem)? @ -no Were any procedures done? @ -no Diagnosis/symptom? @ -Syncope altered mental status and decreased responsiveness Acute, or Chronic, or Acute on Chronic? @ -Acute Uncomplicated (without systemic symptoms) or Complicated (systemic symptoms)? @ -Complicated Side effects of treatment? @ -no Exacerbation, Progression, or Severe Exacerbation? @ -exacerbation Poses a threat to life or bodily function? How? (Chest pain, USA, CT, pneumonia, PE, COPD, DKA, ARF, appy, cholecystitis, CVA, Diverticulitis, Homicidal, Suicidal, threat to staff... and all critical care pts) @ -yes with cause of syncope Reevaluation #5: Differential Syncope: Valvular disease, hypertrophic cardiomyopathy, pulmonary embolism, tamponade, tachycardia, bradycardia, CT, hypovolemia, hemorrhage, dissection, anemia, intracranial hemorrhage, seizure, hypoglycemia, carbon monoxide poisoning, this is not meant to be an all-inclusive list. EKG Findings - EKG Comments: EKG Findings:: EKG is sinus. rhythm 55 SD 290 QRS 93 QTC 418 - EKG Results: EKG: interpreted by ANGEL Medical Decision Making - Medical Decision Making 83 female to the emergency department for evaluation of syncopal event. Patient was at Thanksgiving dinner today with family. Patient became unresponsive and did not hit the ground. At this point patient has no current complaints feels well and prefers discharged home - Lab Data Result diagrams: 06/27/23 15:43 06/27/23 15:43 Lab Results 06/27/23 06/27/23 06/27/23 Range/Units 15:43 15:43 15:43 WBC 8.7 (3.8-10.6) k/uL RBC 4.43 (3.80-5.40) m/uL Hgb 14.0 (11.4-16.0) gm/dL Hct 42.2 (34.0-46.0) % MCV 95.3 (80.0-100.0) fL MCH 31.7 (25.0-35.0) pg MCHC 33.2 (31.0-37.0) g/dL RDW 12.3 (11.5-15.5) % Plt Count 185 (150-450) k/uL MPV 8.6 Neutrophils % 73 % Lymphocytes % 18 % Monocytes % 4 % Eosinophils % 3 % Basophils % 0 % Neutrophils # 6.4 (1.3-7.7) k/uL Lymphocytes # 1.6 (1.0-4.8) k/uL Monocytes # 0.3 (0-1.0) k/uL Eosinophils # 0.3 (0-0.7) k/uL Basophils # 0.0 (0-0.2) k/uL PT 11.5 (10.0-12.5) sec INR 1.1 (<1.2) APTT 22.7 (22.0-30.0) sec D-Dimer 0.65 H (<0.60) mg/L FEU Sodium (137-145) mmol/L Potassium (3.5-5.1) mmol/L Chloride (98-107) mmol/L Carbon Dioxide (22-30) mmol/L Anion Gap mmol/L BUN (7-17) mg/dL Creatinine (0.52-1.04) mg/dL Est GFR (CKD-EPI)AfAm (>60 ml/min/1.73 sqM) Est GFR (CKD-EPI)NonAf (>60 ml/min/1.73 sqM) Glucose (74-99) mg/dL Plasma Lactic Acid [place] (0.7-2.0) mmol/L Calcium (8.4-10.2) mg/dL Phosphorus (2.5-4.5) mg/dL Magnesium (1.6-2.3) mg/dL Total Bilirubin (0.2-1.3) mg/dL AST (14-36) U/L ALT (4-34) U/L Alkaline Phosphatase (38-126) U/L Troponin I (0.000-0.034) ng/mL NT-Pro-B Natriuret Pep pg/mL Total Protein (6.3-8.2) g/dL Albumin (3.5-5.0) g/dL Urine Color Yellow Urine Appearance Cloudy H (Clear) Urine pH 5.0 (5.0-8.0) Ur Specific [place] 1.020 (1.001-1.035) Urine Protein Trace H (Negative) Urine Glucose (UA) Negative (Negative) Urine Ketones Negative (Negative) Urine Blood Negative (Negative) Urine Nitrite Positive H (Negative) Urine Bilirubin Negative (Negative) Urine Urobilinogen <2.0 (<2.0) mg/dL Ur Leukocyte Esterase Large H (Negative) Urine RBC 5 (0-5) /hpf Urine WBC 92 H (0-5) /hpf Ur Squamous Epith Cells 6 H (0-4) /hpf Urine Bacteria Many H (None) /hpf Hyaline Casts 15 H (0-2) /lpf Urine Mucus Rare H (None) /hpf Serum Alcohol mg/dL 06/27/23 06/27/23 06/27/23 Range/Units 15:43 15:43 15:43 WBC (3.8-10.6) k/uL RBC (3.80-5.40) m/uL Hgb (11.4-16.0) gm/dL Hct (34.0-46.0) % MCV (80.0-100.0) fL MCH (25.0-35.0) pg MCHC (31.0-37.0) g/dL RDW (11.5-15.5) % Plt Count (150-450) k/uL MPV Neutrophils % % Lymphocytes % % Monocytes % % Eosinophils % % Basophils % % Neutrophils # (1.3-7.7) k/uL Lymphocytes # (1.0-4.8) k/uL Monocytes # (0-1.0) k/uL Eosinophils # (0-0.7) k/uL Basophils # (0-0.2) k/uL PT (10.0-12.5) sec INR (<1.2) APTT (22.0-30.0) sec D-Dimer (<0.60) mg/L FEU Sodium 142 (137-145) mmol/L Potassium 4.5 (3.5-5.1) mmol/L Chloride 110 H (98-107) mmol/L Carbon Dioxide 19 L (22-30) mmol/L Anion Gap 13 mmol/L BUN 46 H (7-17) mg/dL Creatinine 1.74 H (0.52-1.04) mg/dL Est GFR (CKD-EPI)AfAm 30 (>60 ml/min/1.73 sqM) Est GFR (CKD-EPI)NonAf 26 (>60 ml/min/1.73 sqM) Glucose 110 H (74-99) mg/dL Plasma Lactic Acid [place] 1.4 (0.7-2.0) mmol/L Calcium 9.1 (8.4-10.2) mg/dL Phosphorus 4.2 (2.5-4.5) mg/dL Magnesium 1.8 (1.6-2.3) mg/dL Total Bilirubin 0.6 (0.2-1.3) mg/dL AST 31 (14-36) U/L ALT 35 H (4-34) U/L Alkaline Phosphatase 64 (38-126) U/L Troponin I <0.012 (0.000-0.034) ng/mL NT-Pro-B Natriuret Pep 1150 pg/mL Total Protein 6.4 (6.3-8.2) g/dL Albumin 3.9 (3.5-5.0) g/dL Urine Color Urine Appearance (Clear) Urine pH (5.0-8.0) Ur Specific [place] (1.001-1.035) Urine Protein (Negative) Urine Glucose (UA) (Negative) Urine Ketones (Negative) Urine Blood (Negative) Urine Nitrite (Negative) Urine Bilirubin (Negative) Urine Urobilinogen (<2.0) mg/dL Ur Leukocyte Esterase (Negative) Urine RBC (0-5) /hpf Urine WBC (0-5) /hpf Ur Squamous Epith Cells (0-4) /hpf Urine Bacteria (None) /hpf Hyaline Casts (0-2) /lpf Urine Mucus (None) /hpf Serum Alcohol <10 mg/dL - EKG Data -: EKG Interpreted by Me Disposition Clinical Impression: Vasovagal syncope, Syncope due to orthostatic hypotension, Syncope Disposition: HOME SELF-CARE Condition: Good Instructions (If sedation given, give patient instructions): Syncope (ED) Is patient prescribed a controlled substance at d/c from ED?: No Referrals: Marcello Kaiser MD [Primary Care Provider] - 1-2 days Time of Disposition: 18:00
[2023-06-27 15:56] VITALS: BP 134/82; PULSE 60; RESP 18
[2023-06-27 16:08] LABS: Basophils % (A) 0 %; Eosinophils # (A) 0.3 k/uL (0-0.7); Eosinophils % (A) 3 %; HCT 42.2 % (34.0-46.0); Lymphocytes # (A) 1.6 k/uL (1.0-4.8); Lymphocytes % (A) 18 %; MCH 31.7 pg (25.0-35.0); MCHC 33.2 g/dL (31.0-37.0); MCV 95.3 fL (80.0-100.0); Mean Platelet Volume 8.6; Monocytes # (A) 0.3 k/uL (0-1.0); Monocytes % (A) 4 %; Neutrophils # (A) 6.4 k/uL (1.3-7.7); Neutrophils % (A) 73 %; Platelet Count 185 k/uL (150-450); RBC 4.43 m/uL (3.80-5.40); RDW 12.3 % (11.5-15.5); WBC 8.7 k/uL (3.8-10.6)
[2023-06-27 16:26] LABS: NT-Pro-B-Type Natriuretic Pept 1150 pg/mL
[2023-06-27 16:27] LABS: INR 1.1 (<1.2); Partial Thromboplastin Time 22.7 sec (22.0-30.0); Prothrombin Time 11.5 sec (10.0-12.5)
[2023-06-27 16:58] LABS: ALT 35 U/L (4-34); AST 31 U/L (14-36); African American GFR (CKD) 30 (>60 ml/min/1.73 sqM); Albumin 3.9 g/dL (3.5-5.0); Alcohol <10 mg/dL; Alkaline Phosphatase 64 U/L (38-126); Anion Gap 13 mmol/L; Blood Urea Nitrogen 46 mg/dL (7-17); Calcium 9.1 mg/dL (8.4-10.2); Carbon Dioxide 19 mmol/L (22-30); Chloride 110 mmol/L (98-107); Glucose 110 mg/dL (74-99); Magnesium 1.8 mg/dL (1.6-2.3); Non-African American GFR(CKD) 26 (>60 ml/min/1.73 sqM); Phosphorus 4.2 mg/dL (2.5-4.5); Potassium 4.5 mmol/L (3.5-5.1); Sodium 142 mmol/L (137-145); Total Bilirubin 0.6 mg/dL (0.2-1.3); Total Protein 6.4 g/dL (6.3-8.2)
[2023-06-27 18:32] LABS: Appearance,Urine Cloudy (Clear); Bacteria,Urine Many /hpf; Bilirubin,Urine Negative (Negative); Blood,Urine Negative (Negative); Color,Urine Yellow; Glucose,Urine (UA) Negative (Negative); Hyaline Casts,Urine 15 /lpf (0-2); Ketones,Urine Negative (Negative); Leukocyte Esterase,Urine Large (Negative); Mucus,Urine Rare /hpf; Nitrite,Urine Positive (Negative); Protein,Urine Trace (Negative); RBC,Urine 5 /hpf (0-5); Squamous Epithelial Cell,Urine 6 /hpf (0-4); Urobilinogen,Urine <2.0 mg/dL (<2.0); WBC,Urine 92 /hpf (0-5)
[2023-06-27 18:42] VITALS: TEMP 98.7
== END 2023-06-27 16:35 | disposition home or self-care (01) ==
LOC: EC 15:34
DX: I95.1 Orthostatic hypotension (principal); I10 Essential (primary) hypertension; I48.91 Unspecified atrial fibrillation; G47.30 Sleep apnea, unspecified; I25.10 Atherosclerotic heart disease of native coronary artery without angina pectoris; K21.9 Gastro-esophageal reflux disease without esophagitis; F32.A Depression, unspecified; Z79.01 Long term (current) use of anticoagulants; Z79.899 Other long term (current) drug therapy; Z87.891 Personal history of nicotine dependence; Z90.49 Acquired absence of other specified parts of digestive tract; Z95.1 Presence of aortocoronary bypass graft
CPT/HCPCS: 36415; 93005; 85379; 83880; 80053; 83605; 83735; 84100; 84484; 85025; 85610; 85730; 81001; 99284; G0480; 80320

== ENCOUNTER → 2024-05-05 | Outpatient (CLI) | payer MEDICARE, BC ==
[2024-05-05 21:19] LABS: Blood Urea Nitrogen 27.2 mg/dL (9.0-27.0); Calcium 9.6 mg/dL (8.7-10.3); Carbon Dioxide 22.9 mmol/L (21.6-31.8); Chloride 108 mmol/L (96-109); Glucose 111 mg/dL (70-110); Potassium 4.7 mmol/L (3.5-5.5); Sodium 144 mmol/L (135-145)
== END | disposition home or self-care (01) ==
LOC: LABWHC1 12:43
PROVIDERS: ATTEND Internal Medicine Interventional Cardiology
DX: I10 Essential (primary) hypertension (principal)
CPT/HCPCS: 36415; 80048

== ENCOUNTER 2024-05-26 10:46 | Emergency (ER) | payer MEDICARE, BC ==
[2024-05-26 11:09] VITALS: TEMP 98
[2024-05-26 11:42] LABS: Basophils # (A) 0.1 k/uL (0-0.2); Basophils % (A) 1 %; Eosinophils # (A) 0.3 k/uL (0-0.7); Eosinophils % (A) 3 %; HCT 43.6 % (34.0-46.0); HGB 14.3 gm/dL (11.4-16.0); Lymphocytes # (A) 1.8 k/uL (1.0-4.8); Lymphocytes % (A) 18 %; MCH 31.3 pg (25.0-35.0); MCHC 32.9 g/dL (31.0-37.0); MCV 95.1 fL (80.0-100.0); Mean Platelet Volume 9.1; Monocytes # (A) 0.5 k/uL (0-1.0); Monocytes % (A) 5 %; Neutrophils # (A) 7.2 k/uL (1.3-7.7); Neutrophils % (A) 72 %; Platelet Count 238 k/uL (150-450); RBC 4.58 m/uL (3.80-5.40); RDW 13.7 % (11.5-15.5); WBC 9.9 k/uL (3.8-10.6)
--- NOTE | 2024-05-26 11:48 | ED ---
General Adult HPI - General Chief complaint: Skin/Abscess/Foreign Body Stated complaint: Right toe injury Time Seen by Provider: 05/26/24 11:14 Source: patient Mode of arrival: ambulatory Limitations: no limitations - History of Present Illness Initial comments: Dictation was produced using [employer]odange dictation software. please excuse any grammatical, word or spelling errors. Chief Complaint: 84-year-old female with bleeding right great toe History of Present Illness: Patient is 84-year-old female presents emergency department bleeding right great toe. She states she had some dry skin on the tip of her right toe. She peeled it off and started bleeding. Patient takes Eliquis for cardiac reasons. Patient placed a dressing on there. In triage thomas bryant's blood pressure was found to be low and patient was moved to the trauma bay. Patient denies any symptoms of lightheadedness. She does have history of hypertension takes blood pressure medications. The ROS documented in this emergency department record has been reviewed and confirmed by me. Those systems with pertinent positive or negative responses have been documented in the HPI. All other systems are other negative and/or noncontributory. - Related Data Home Medications Medication Instructions Recorded Confirmed Metoprolol Tartrate [Lopressor] 25 mg PO BID 07/09/14 05/26/24 Apixaban [Eliquis] 5 mg PO BID 09/07/21 05/26/24 PARoxetine HCL [Paxil] 30 mg PO DAILY 09/07/21 05/26/24 Multivit-Min/Iron/Folic/Lutein 1 tab PO DAILY 09/28/21 05/26/24 [Centrum Silver Women Tablet] Amoxicillin 2,000 mg PO ONCE PRN 05/26/24 05/26/24 Atorvastatin [Lipitor] 40 mg PO DAILY 05/26/24 05/26/24 HYDROcodone/APAP 10-325MG [[place] 1 tab PO BID PRN 05/26/24 05/26/24 10-325] Krill/Om-3/Dha/Epa/Phospho/Ast 1 cap PO DAILY 05/26/24 05/26/24 [Krill Oil 600 mg Softgel] Losartan Potassium [Cozaar] 100 mg PO DAILY 05/26/24 05/26/24 hydroCHLOROthiazide 12.5 mg PO DAILY 05/26/24 05/26/24 Allergies Allergy/AdvReac Type Severity Reaction Status Date / Time CHOLESTEROL MEDS AdvReac Severe LEG CRAMPS Uncoded 05/26/24 13:26 - see comment Review of Systems ROS Statement: Those systems with pertinent positive or pertinent negative responses have been documented in the HPI. ROS Other: All systems not noted in ROS Statement are negative. Past Medical History Past Medical History: Atrial Fibrillation, Coronary Artery Disease (CAD), Deep Vein Thrombosis (DVT), GERD/Reflux, GI Bleed, Hypertension, Sleep Apnea/CPAP/BIPAP, Vascular Disorder Additional Past Medical History / Comment(s): STATES HX OF SEVERAL DVT'S & ONE FROM HIP TO ANKLE .,MAY THURNER SYNDROME., PVD., C-PAP MACHINE., FX LEFT ANKLE- HAS SPLINT AND NO WT BEARING. History of Any Multi-Drug Resistant Organisms: None Reported Past Surgical History: Back Surgery, Cholecystectomy, Coronary Bypass/CABG, Joint Replacement, Orthopedic Surgery Additional Past Surgical History / Comment(s): L knee replacement followed by sepsis. CABG X2 in 2001. , LEFT FEMORAL STENT ., CLOSED REDUCTION LEFT ANKLE FX 09/08/21 Past Anesthesia/Blood Transfusion Reactions: No Reported Reaction Past Psychological History: Depression Smoking Status: Former smoker Past Alcohol Use History: Rare Past Drug Use History: None Reported - Past Family History Father Family Medical History: Cancer Additional Family Medical History / Comment(s): Leukemia at 35 Mother Family Medical History: Myocardial Infarction ([place]) Additional Family Medical History / Comment(s): Alcoholism General Exam - General Exam Comments Initial Comments: PHYSICAL EXAM: General Impression: Alert and oriented x3, not in acute distress HEENT: Normocephalic atraumatic, extra-ocular movements intact, pupils equal and reactive to light bilaterally, mucous membranes moist. Cardiovascular: Heart regular rate and rhythm Chest: Able to complete full sentences, no retractions, no tachypnea Abdomen: abdomen soft, non-tender, non-distended, no organomegaly Musculoskeletal: Pulses present and equal in all extremities, no peripheral edema Motor: no focal deficits noted Neurological: CN II-XII grossly intact, no focal motor or sensory deficits noted Skin: Intact with no visualized rashes Psych: Normal affect and mood Right great toe: No active bleeding there is a dermal defect measuring approximately 1 x 3 mm Limitations: no limitations Course Vital Signs 05/26/24 05/26/24 05/26/24 11:03 11:17 11:30 Temperature 98 F Pulse Rate 50 L 56 L 55 L Respiratory 18 20 16 Rate Blood Pressure 69/44 90/53 96/62 O2 Sat by Pulse 95 95 Oximetry 05/26/24 05/26/24 05/26/24 11:47 12:15 12:33 Temperature Pulse Rate 54 L 51 L Respiratory 18 20 Rate Blood Pressure 85/41 87/64 90/43 O2 Sat by Pulse 91 L 92 L Oximetry 05/26/24 05/26/24 12:58 13:19 Temperature Pulse Rate 52 L 51 L Respiratory 18 20 Rate Blood Pressure 108/48 109/35 O2 Sat by Pulse 90 L 93 L Oximetry Medical Decision Making - Medical Decision Making Was pt. sent in by a medical professional or institution (, PA, FISHING CAPTAIN, urgent care, hospital, or jail...) When possible be specific @ -No Did you speak to anyone other than the patient for history (EMS, parent, family, police, friend...)? What history was obtained from this source @ -No Did you review nursing and triage notes (agree or disagree)? Why? @ -I reviewed and agree with nursing and triage notes Were old charts reviewed (outside hosp., previous admission, EMS record, old E KG, old radiological studies, urgent care reports/EKG's, jail records)? Report findings @ -No old charts were reviewed Differential Diagnosis (chest pain, altered mental status, abdominal pain women, abdominal pain men, vaginal bleeding, musculoskeletal, weakness, fever, dyspnea, syncope, headache, dizziness, GI bleed, back pain, seizure, CVA, palpatations, mental health)? @ -Dehydration, vasovagal syncope, acute blood loss anemia EKG interpreted by me (3pts min.). @ -None done X-rays interpreted by me (1pt min.). @ -None done CT interpreted by me (1pt min.). @ -None done U/S interpreted by me (1pt. min.). @ -None done What testing was considered but not performed or refused? (CT, X-rays, U/S, labs)? Why? @ -None What meds were considered but not given or refused? Why? @ -None Was smoking cessation discussed for >3mins.? @ -No Were there social determinants of health that impacted care today? How? (Homelessness, low income, unemployed, alcoholism, drug addiction, tra nsportation, low edu. Level, literacy, decrease access to med. care, senior care, rehab)? @ -No Was there de-escalation of care discussed even if they declined (Discuss DNR or withdrawal of care, Hospice)? DNR status @ -No What co-morbidities impacted this encounter? (DM, HTN, Smoking, COPD, CAD, Cancer, CVA, ARF, Chemo, Hep., AIDS, mental health diagnosis, sleep apnea, morbid obesity)? @ -None Was patient admitted / discharged? Hospital course, mention meds given and route, prescriptions, significant lab abnormalities, going to OR and other pertinent info. @ -84-year-old female presents to the emergency department for continued bleeding of her right great toe after she peeled the scab off of her toe. Bleeding was controlled on arrival. Triage vital signs shows blood pressure of 85/41. Patient well-appearing no symptoms of hypotension. Laboratory evaluation unremarkable. Patient monitored in the emergency department for several hours. Blood pressure is improved. Blood pressure at 2:20 PM is 145/69.. She states that she took her blood pressure medications this morning. Recommended observation admission for hypotension. She would prefer to be discharged to follow-up with the primary care doctor. She is given strict return precautions. Did you discuss the management of the patient with other professionals (professionals i.e. , PA, FISHING CAPTAIN, lab, RT, psych nurse, social service manager, casing man, teacher, principal gifts officer, case specialist)? Give summary @ -No Was critical care preformed (if so, how long)? @ -No Undiagnosed new problem with uncertain prognosis? @ -No Drug Therapy requiring intensive monitoring for toxicity (Heparin, Nitro, Insulin, Cardizem)? @ -No Were any procedures done? @ -No Diagnosis/symptom? Acute, or Chronic, or Acute on Chronic? Uncomplicated (without systemic symptoms) or Complicated (systemic symptoms)? @ -Right great toe bleeding, hypotension resolved Side effects of treatment? @ -No Exacerbation, Progression, or Severe Exacerbation? @ -No Poses a threat to life or bodily function? How? (Chest pain, USA, [place], pneumonia, PE, COPD, DKA, ARF, appy, cholecystitis, CVA, Diverticulitis, Homicidal, Suicidal, threat to staff... and all critical care pts) @ -No - Lab Data Result diagrams: 05/26/24 11:27 05/26/24 11:27 Lab Results 05/26/24 05/26/24 Range/Units 11:27 11:27 WBC 9.9 (3.8-10.6) k/uL RBC 4.58 (3.80-5.40) m/uL Hgb 14.3 (11.4-16.0) gm/dL Hct 43.6 (34.0-46.0) % MCV 95.1 (80.0-100.0) fL MCH 31.3 (25.0-35.0) pg MCHC 32.9 (31.0-37.0) g/dL RDW 13.7 (11.5-15.5) % Plt Count 238 (150-450) k/uL MPV 9.1 Neutrophils % 72 % Lymphocytes % 18 % Monocytes % 5 % Eosinophils % 3 % Basophils % 1 % Neutrophils # 7.2 (1.3-7.7) k/uL Lymphocytes # 1.8 (1.0-4.8) k/uL Monocytes # 0.5 (0-1.0) k/uL Eosinophils # 0.3 (0-0.7) k/uL Basophils # 0.1 (0-0.2) k/uL Sodium 140 (137-145) mmol/L Potassium 5.0 (3.5-5.1) mmol/L Chloride 109 H (98-107) mmol/L Carbon Dioxide 20 L (22-30) mmol/L Anion Gap 11 mmol/L BUN 38 H (7-17) mg/dL Creatinine 1.58 H (0.52-1.04) mg/dL Est GFR (CKD-EPI)AfAm 34 (>60 ml/min/1.73 sqM) Est GFR (CKD-EPI)NonAf 30 (>60 ml/min/1.73 sqM) Glucose 122 H (74-99) mg/dL Calcium 9.4 (8.4-10.2) mg/dL Disposition Clinical Impression: Hypotension Disposition: HOME SELF-CARE Condition: Good Instructions (If sedation given, give patient instructions): Apixaban (By mouth), Hypotension (ED) Is patient prescribed a controlled substance at d/c from ED?: No Referrals: Marcello Kaiser MD [Primary Care Provider] - 1-2 days Time of Disposition: 13:59
[2024-05-26 11:51] LABS: African American GFR (CKD) 34 (>60 ml/min/1.73 sqM); Anion Gap 11 mmol/L; Blood Urea Nitrogen 38 mg/dL (7-17); Calcium 9.4 mg/dL (8.4-10.2); Carbon Dioxide 20 mmol/L (22-30); Chloride 109 mmol/L (98-107); Glucose 122 mg/dL (74-99); Non-African American GFR(CKD) 30 (>60 ml/min/1.73 sqM); Sodium 140 mmol/L (137-145)
[2024-05-26] MEDS: SODIUM CHLORIDE 0.9% 1,000 ML IV STA (12:34)
[2024-05-26] MEDS: HYDROcodone/APAP 5-325MG 1 EACH TAB PO STA (14:18)
[2024-05-26 14:44] VITALS: BP 142/80; PULSE 80; RESP 18
== END 2024-05-26 14:44 | disposition home or self-care (01) ==
LOC: EC 10:46
DX: I95.9 Hypotension, unspecified (principal); Z87.891 Personal history of nicotine dependence; Z88.8 Allergy status to other drugs, medicaments and biological substances
CPT/HCPCS: 36415; 80048; 85025; 96360; 99283